=== PATIENT | female | born 1960 | race Caucasian/White ===

== ENCOUNTER 2017-08-29 08:22 | Outpatient (CLI) | payer BC | END 2017-08-29 08:23 | disposition home or self-care (01) | LOC: BICMAMMO 08:22 | PROVIDERS: ATTEND Family Medicine | DX: Z12.31 Encounter for screening mammogram for malignant neoplasm of breast (principal) | CPT/HCPCS: 77063; 77067 ==

== ENCOUNTER 2018-01-19 08:23 | Outpatient (CLI) | payer OTHER ==
[2018-01-19] MEDS ORDERED: Iopamidol 370 76% 100 ML VIAL ONE (09:40)
--- NOTE | 2018-01-19 10:42 | CT ---
CT ABDOMEN WITH CONTRAST CT PELVIS WITH CONTRAST: HISTORY: Rectal cancer. Rectal mass. Status post colonoscopy 2 days ago. Rectal pain. COMPARISON: None. TECHNIQUE: Abdomen and pelvic CT are performed with IV and oral contrast. Coronal reformatted images are submit heath for interpretation. FINDINGS: ABDOMEN CT: Lung bases are clear. Heart size is normal. No pericardial effusion. The descending thoracic aorta and abdominal aorta have an overall normal caliber. No periaortic fat stranding. There is prominence of the portal venous system. Correlate for portal hypertension. Minimal splenic varices. There is a suggestion of gastric varices. There are no enhancing masses or nodularity wit h regards to the hepatic parenchyma. The spleen, pancreas, and adrenal glands have appropriate enhan cement. There is mild tortuosity with atherosclerosis involving the splenic artery. Unremarkable gallbladder. Symmetric enhancement of the kidneys. Bilateral extrarenal pelvises are noted. No obstructive uropa thy. No gastrohepatic or retrocrural periportal lymphadenopathy. No mesenteric mass, lymphadenopathy, free air, or free fluid. Gastric mucosa, duodenum, and multiple normal-caliber small bowel loops are noted. Normal ileocecal junction. Normal-caliber appendix. There is fecal material throughout a nondistended, nondilated co jose eduardo. There is mucosal prominence involving the rectum with mild perirectal fat stranding. Findings compatible with known cancer. There is a nonspecific left perirectal lymph node measuring [address]: Uterus and adnexal structures are unremarkable. The urinary bladder is unremarkable. No lytic or blastic lesions in the osseous structures. IMPRESSION: 1. Rectal cancer. 2. Nonspecific left perirectal lymph node, worrisome for metastases. 3. Prominence of the portal venous system with gastroesophageal and splenic varices. Correlate for portal hypertension. POS: [facility]
== END 2018-01-19 08:24 | disposition home or self-care (01) ==
LOC: CT 08:23
PROVIDERS: ATTEND Internal Medicine Gastroenterology
DX: C20 Malignant neoplasm of rectum (principal); K62.9 Disease of anus and rectum, unspecified; K76.6 Portal hypertension
CPT/HCPCS: 74177

== ENCOUNTER 2018-02-07 07:30 | Outpatient (CLI) | payer BC ==
[2018-02-07] MEDS ORDERED: ISOVUE-370 76%-LOCM 1 ML ONE (12:25)
== END 2018-02-07 07:31 | disposition home or self-care (01) ==
LOC: BICCT 07:30
PROVIDERS: ATTEND Internal Medicine Hematology & Oncology
DX: C20 Malignant neoplasm of rectum (principal); J45.998 Other asthma
CPT/HCPCS: 71260

== ENCOUNTER → 2018-02-10 | Day surgery (SDC) | payer BC ==
[2018-02-08 12:49] VITALS: BMI 20.9
[~2018-02-10] MED LIST: Bupivacaine/Epinephrine 0.25% 30 ML VIAL ONE; CEFAZOLIN/Water 2 GM/20 ML SYRINGE ONE; Dexamethasone 20 MG/5 ML VIAL ONE; Fentanyl 100 MCG/2 ML VIAL ONE; Ketorolac Tromethamine 30 MG/ML VIAL ONE; Lidocaine 2% 10 ML INJ ONE; Midazolam HCl 2 mg/2 ml Vial ONE; Ondansetron HCl/PF 4 MG/2 ML Vial ONE; PHENYLEPHRINE-NS 100 MCG/ML 10 ML SYRINGE ONE; Propofol 1,000 MG/100 ML VIAL IV ONE
--- NOTE | 2018-02-10 10:17 | RAD ---
CHEST 1 VIEW: HISTORY: MediPort placement. COMPARISON: None. FINDINGS: There is MediPort placement with tip at the inferior SVC. The right lung apex is not completely visu alized. No large pneumothorax. Lungs are hyperinflated. IMPRESSION: Central venous catheter tip near the mid to inferior superior vena cava. No large pneumothorax. Of note, the right neck is not completely visualized. POS: [facility]
--- NOTE | 2018-02-10 20:02 | OP ---
DATE OF PROCEDURE: 02/10/2018 PREOPERATIVE DIAGNOSIS: Rectal cancer, locally invasive. POSTOPERATIVE DIAGNOSIS: Rectal cancer, locally invasive. PROCEDURE: Tunneled central line subcutaneous port (MediPort, CT injectable). SURGEON: Dr. Nicole. ANESTHESIA: General. ESTIMATED BLOOD LOSS: Minimal. COMPLICATIONS: None. SPECIMEN: None. FINDINGS: Tip of the catheter is at atriocaval junction. TECHNIQUE: The patient was taken to the operating room and placed supine on the table. After sedati on was obtained, bilateral neck and chest is prepped and draped in a sterile fashion. Local anesthet ic infiltrated over the right internal jugular vein. Intrajugular vein cannulated using a 22-gauge f danyelle needle followed by a Seldinger needle. Wire was passed into the superior vena cava under fluor oscopic guidance. A small chidi was made at the wire entrance site. A separate 3-cm incision made in the right upper chest. Subcutaneous pocket made below the lower incision. Tubing for the MediPort tunneled from the inferior to the superior incision and suture sheath was placed over the wire into t he superior vena cava under fluoroscopic guidance. The dilator wire removed. The end of catheter sh redded into the sheath as sheath is peeled away. The tip of the catheter is at the atriocaval juncti on. The MediPort tubing is cut to fit the MediPort at the lower incision, connected MediPort which i s sewn to the chest wall in the subcutaneous pocket using Prolene. The wounds were irrigated. Local anesthetic is applied. Wounds are closed using 3-0 Vicryl, 4-0 Monocryl, and Dermabond. The MediPo rt was flushed with a heparin flush. The patient is taken to the recovery room in stable condition. All instrument counts, needle counts and lap counts were correct.
== END ==
LOC: SDC 05:58
PROVIDERS: ATTEND Surgery
PROC: 05HM33Z Insertion of Infusion Device into Right Internal Jugular Vein, Percutaneous Approach (ICD-10-PCS; principal; 2018-02-10)
DX: C20 Malignant neoplasm of rectum (principal); F17.210 Nicotine dependence, cigarettes, uncomplicated; Z88.5 Allergy status to narcotic agent
CPT/HCPCS: 71045; C1788; J1100; J1642; J1885; J2250; J2405; J2704; J3010

== ENCOUNTER 2018-03-25 15:17 | Inpatient (IN) | payer BC ==
[~2018-03-25 15:17] MED LIST changes: -Bupivacaine/Epinephrine 0.25% 30 ML VIAL ONE; -CEFAZOLIN/Water 2 GM/20 ML SYRINGE ONE; -Dexamethasone 20 MG/5 ML VIAL ONE; -Fentanyl 100 MCG/2 ML VIAL ONE; +ISOVUE-370 76%-LOCM 1 ML ONE; -Ketorolac Tromethamine 30 MG/ML VIAL ONE; -Lidocaine 2% 10 ML INJ ONE; -Midazolam HCl 2 mg/2 ml Vial ONE; -Ondansetron HCl/PF 4 MG/2 ML Vial ONE; -PHENYLEPHRINE-NS 100 MCG/ML 10 ML SYRINGE ONE; -Propofol 1,000 MG/100 ML VIAL IV ONE
[2018-03-25 16:02] LABS: Hemoglobin 12.4 g/dL (12.0-16.0); Mean Corpuscular HGB CONC 35.7 g/dL (32.0-36.0); Mean Corpuscular Hemoglobin 34.4 pg (27.0-31.0); Mean Corpuscular Volume 96.2 fL (78.0-98.0); Mean Platelet Volume 6.8 fL (7.4-10.4); Platelet Count 188 thou/uL (130-400); RBC Distribution Width 14.5 % (11.5-14.5); White Blood Cell (WBC) Count 9.4 thou/uL (4.8-10.8)
[2018-03-25 16:20] LABS: ALT (SGPT) 25 U/L (8-55); AST (SGOT) 16 U/L (5-34); Albumin 2.5 g/dL (3.5-5.0); Alkaline Phosphatase 95 U/L (40-150); Anion Gap 10 mmol/L (10-20); BUN (Urea Nitrogen) 7 mg/dL (9.8-20.1); Bilirubin, Total 0.7 mg/dL (0.2-1.2); Calc. Creatinine Clearance 0 mL/min (70-130); Carbon Dioxide 30 mmol/L (22-29); Chloride 91 mmol/L (98-107); Estimated GFR-MDRD Greater than 90; Globulin 2.4 g/dL (2.4-3.5); Glucose 117 mg/dL (70-105); Protein, Total 4.9 g/dL (6.0-8.3); Sodium 129 mmol/L (136-145)
[2018-03-25 16:24] LABS: Potassium 2.4 mmol/L (3.5-5.1)
[2018-03-25 16:26] LABS: Band 67 % (5-11); Lymphocytes 5 % (21-51); MDiff Complete? YES; Metamyelocyte 1 % (0-0); Monocytes 4 % (0-10); Neutrophil 23 % (42-75); Toxic Granulation SLIGHT
[2018-03-25 16:32] LABS: PLT Morphology Comment Appears Adequate
[2018-03-25 16:50] LABS: Bilirubin Negative (Negative); Blood, Urine Negative (Negative); Clarity CLEAR (Clear); Glucose, Urine (Dipstick) Negative (Negative); Leukocyte Negative (Negative); Nitrite Negative (Negative); Protein, Urine (Dipstick) Negative (Neg-Trace); Specific Gravity, Urine 1.004 (1.002-1.036); Urobilinogen 0.2 mg/dL (0.2-1.0)
[2018-03-25 16:54] LABS: Magnesium 1.4 mg/dL (1.6-2.6)
[2018-03-25] MEDS ORDERED: Morphine 4 MG/ML VIAL ONE (16:56)
[2018-03-25] MEDS ORDERED: Potassium Chloride 20 MEQ TAB ONE (16:56)
[2018-03-25] MEDS ORDERED: Potassium Chloride 20 MEQ in Sodium Chloride 0.9% 250 ML 250 ML IVPB ONE (17:15)
--- NOTE | 2018-03-25 17:26 | CT ---
CT OF THE ABDOMEN AND PELVIS WITH IV CONTRAST 03/25/18 INDICATION: History of weakness and rectal cancer. FINDINGS: There is wall thickening involving the rectum, sigmoid colon, descending colon, splenic flexure, and portions of the transverse colon. The ascending colon appears within normal limits. There is prominen t dilatation of the bladder. There are a few mildly prominent fluid filled loops of small bowel withi n the central abdomen which is nonspecific. No free fluid is evident. The kidneys, adrenal glands, and spleen appear within normal limits. No foc al hepatic lesion is evident. There is scattered degenerative and osteoarthritic change. There is diffuse osteopenia. IMPRESSION: 1. Findings consistent with a proctocolitis involving the transverse colon through the level of the rectum. Findings are suspicious for an infectious or inflammatory colitis. The ascending colon ap pears within normal limits. There are nonspecific mildly dilated loops of small bowel seen throughout the abdomen which may reflect a regional ileus. 2. Prominent distention of the bladder. 3. Scattered vascular calcifications of the abdominal and pelvic vasculature. 4. Other chronic findings as above. POS: [facility]
[2018-03-25] MEDS ORDERED: Morphine IR Tab 15 MG TAB PO PRN (19:48)
[2018-03-25] MEDS ORDERED: Ondansetron ODT 8 MG TAB PO PRN (19:48)
[2018-03-25] MEDS ORDERED: Prochlorperazine Maleate 5 MG TAB PO PRN (19:48)
[2018-03-25] MEDS ORDERED: Acetaminophen 325 MG TAB PO PRN (20:40)
[2018-03-25] MEDS ORDERED: Mag-Al 1200 mg/1200 mg/30 ML UDCUP PO PRN (20:40)
[2018-03-25] MEDS ORDERED: Ondansetron HCl/PF 4 MG/2 ML Vial IVP PRN (20:40)
[2018-03-25 21:34] LABS: Anion Gap 12 mmol/L (10-20); BUN (Urea Nitrogen) 6 mg/dL (9.8-20.1); Calc. Creatinine Clearance 0 mL/min (70-130); Calcium 7.9 mg/dL (7.8-10.44); Carbon Dioxide 29 mmol/L (22-29); Chloride 95 mmol/L (98-107); Estimated GFR-MDRD Greater than 90; Glucose 107 mg/dL (70-105); Magnesium 1.5 mg/dL (1.6-2.6); Sodium 133 mmol/L (136-145)
[2018-03-25] MEDS: Famotidine/PF 20 mg/2ml Vial SLOW IVP SCH (21:36)
[2018-03-25] MEDS: Sodium Chloride 0.9% 1,000 ML IV SCH (21:48)
[2018-03-25] MEDS: Diphenoxylate HCl/Atropine Tablet PO PRN (22:26)
[2018-03-25] MEDS: traMADol HCl 50 MG TAB PO PRN (22:27)
[2018-03-25] MEDS: metroNIDAZOLE 500 MG in Premix Bag 1 BAG IVPB SCH (23:51)
[2018-03-26] MEDS: Loperamide HCl 2 MG CAP PO PRN ×2 (01:08→08:50)
[2018-03-26 04:54] LABS: Anion Gap 11 mmol/L (10-20); BUN (Urea Nitrogen) 6 mg/dL (9.8-20.1); Calc. Creatinine Clearance 97 mL/min (70-130); Calcium 7.7 mg/dL (7.8-10.44); Carbon Dioxide 26 mmol/L (22-29); Chloride 97 mmol/L (98-107); Estimated GFR-MDRD Greater than 90; Glucose 98 mg/dL (70-105); Magnesium 1.4 mg/dL (1.6-2.6); Sodium 131 mmol/L (136-145)
[2018-03-26 04:57] LABS: Potassium 2.7 mmol/L (3.5-5.1)
[2018-03-26] MEDS: metroNIDAZOLE 500 MG in Premix Bag 1 BAG IVPB SCH ×3 (05:54→22:46)
[2018-03-26] MEDS: Potassium Chloride 20 MEQ TAB PO SCH ×3 (06:05→10:18)
[2018-03-26 06:09] LABS: Band 47 % (5-11); Eosinophils 1 % (0-10); Lymphocytes 6 % (21-51); MDiff Complete? YES; Mean Corpuscular HGB CONC 35.3 g/dL (32.0-36.0); Mean Corpuscular Volume 96.3 fL (78.0-98.0); Mean Platelet Volume 6.6 fL (7.4-10.4); Metamyelocyte 4 % (0-0); Monocytes 7 % (0-10); Neutrophil 34 % (42-75); Nucleated RBC 1 % (0); PLT Morphology Comment Appears Adequate; Platelet Count 200 thou/uL (130-400); RBC Distribution Width 14.7 % (11.5-14.5); Red Blood Cell (RBC) Count 3.51 mill/uL (4.20-5.40); Toxic Granulation SLIGHT; White Blood Cell (WBC) Count 7.4 thou/uL (4.8-10.8)
[2018-03-26] MEDS: Famotidine/PF 20 mg/2ml Vial SLOW IVP SCH ×2 (08:46→20:59)
[2018-03-26] MEDS: Enoxaparin Sodium 30 MG/0.3 ML SYRINGE SC SCH (08:49)
[2018-03-26] MEDS ORDERED: Prevnar 13-Val Conj/PF 0.5 ML SYRINGE IM ONE (09:00)
--- NOTE | 2018-03-26 09:26 | PDOC.EVN ---
Event Note - Event Note Event Note: h&p [id number]
[2018-03-26] MEDS: traMADol HCl 50 MG TAB PO PRN ×3 (10:18→22:45)
[2018-03-26] MEDS: Diphenoxylate HCl/Atropine Tablet PO PRN (10:19)
--- NOTE | 2018-03-26 10:46 | ULT ---
DOPPLER VENOUS ULTRASOUND LEFT LOWER EXTREMITY: Indication: Left lower extremity edema. TECHNIQUE: Burch scale, color Doppler, and vascular duplex with spectral analysis was performed of the deep venou s structures of both lower extremities. The common femoral vein, superficial femoral vein, popliteal vein, posterior tibial vein, proximal greater saphenous, and proximal profunda veins were assessed bi laterally. FINDINGS: There is normal compression, flow, and augmentation seen within the deep venous structures of the lef t lower extremity. IMPRESSION: No evidence of DVT in the left lower extremity. POS: [facility]
[2018-03-26] MEDS ORDERED: Magnesium Sulfate 2 GM in Sodium Chloride 0.9% 100 ML IVPB SCH (11:00)
[2018-03-26] MEDS: NS 0.9% w/ 40 MEQ KCL 1,000 ML IV SCH (11:30)
[2018-03-26] MEDS: Sodium Chloride 0.9% 1,000 ML IV SCH (11:36)
[2018-03-26 13:04] LABS: Anion Gap 10 mmol/L (10-20); BUN (Urea Nitrogen) 5 mg/dL (9.8-20.1); Calc. Creatinine Clearance 109 mL/min (70-130); Calcium 7.4 mg/dL (7.8-10.44); Carbon Dioxide 26 mmol/L (22-29); Chloride 99 mmol/L (98-107); Estimated GFR-MDRD Greater than 90; Glucose 91 mg/dL (70-105); Magnesium 2.2 mg/dL (1.6-2.6); Potassium 3.5 mmol/L (3.5-5.1); Sodium 131 mmol/L (136-145)
--- NOTE | 2018-03-26 14:02 | HP ---
CHIEF COMPLAINT: Abdominal pain and weakness. HISTORY OF PRESENT ILLNESS: This is a 57-year-old female with a known history of colorectal cancer a s her primary cancer, specifically invasive colonic carcinoma is moderately differentiated with perir ectal lymph nodes. She states that her last dose of both chemo and radiation was approximately 10 da ys ago. Over the last two weeks, the patient endorses very poor p.o. intake along with consistent an d persistent diarrhea that has been very painful in her rectum. She presents today with progressive weakness and worsening suprapubic pain and discomfort that is cramping, persistent. The patient magdalena es any prior similar episodes. At the time of my evaluation, the patient states that pain medications in the emergency department rios ve been somewhat helpful and that she feels slightly better after receiving some IV fluids. REVIEW OF SYSTEMS: As per HPI. Constitutional: The patient endorses subjective fevers, T-max of 10 3 when taken at home about 2 days ago. Also, denies any chills. Endorses weight loss over the last 6 months. HEENT: No headaches, no vision changes, no lightheadedness, no dizziness. Cardiovascular : No chest pain, no palpitations, no chest pressure or left side arm numbness or tingling. Respirat ory: No shortness of breath, no cough, no congestion. Gastrointestinal: As per above. Denies any vomiting. Endorses having nausea, decreased appetite. Genitourinary: Denies any dysuria, changes i n urinary frequency, quality or quantity. Of note, the patient states that she was diagnosed with a probable urinary tract infection, started on Levaquin approximately 2 days ago. Musculoskeletal: De nies any new myalgias or arthralgias. Remainder of the review of systems otherwise negative. PAST MEDICAL HISTORY: 1. Colorectal cancer with perirectal lymph nodes as noted above, currently status post MediPort plac ement and on both chemotherapy and radiation. 2. Status post tubal ligation. FAMILY HISTORY: The patient denies family history of colorectal cancer or GI cancer. SOCIAL HISTORY: The patient is a half-a-pack a day tobacco user. No alcohol, no illicit drug use. Discussed with the patient her code status wishes and she wishes to be full code with her as her medical power of ip technology transactions attorney if she is unable to make her own medical decisions. PHYSICAL EXAMINATION: VITAL SIGNS: Temperature 98.2, pulse of 104, blood pressure 127/59, respirations 18, satting 94% on room air. GENERAL: The patient is pale, cachectic appearing, lying in the hospital bed, in no overt acute dist ress, appears to be a reasonable historian. HEENT: Normocephalic, atraumatic. Dry mucous membranes, equal ocular motions are intact, pale as no heath above with pale conjunctivae. CARDIOVASCULAR: S1, S2. EXTREMITIES: Pulses 2+ bilateral upper extremities, trace lower extremity pitting pedal edema with 1 + in the left lower extremity, but none in the right lower extremity. ABDOMEN: Positive bowel sounds, nondistended, soft, but tender to palpation particularly bilateral l ower quadrants and suprapubic. LABORATORY DATA AND IMAGING: On 03/25/2018, abdomen and pelvis CT. Impression "findings consistent with proctocolitis involving the transverse colon through the level of the rectum. Findings are susp icious for an infectious or inflammatory colitis. The ascending colon appears within normal limits. There are nonspecific mildly dilated loops of small bowel seen through the abdomen, which may reflec t a regional ileus. Prominent distention of the bladder. Scattered vascular calcifications of the a bdominal and pelvic vasculature. Other chronic findings as above|." WBC 9.4, hemoglobin 12.4, hematocrit 34.7, platelets 188, neutrophils 23%, bands 67%. Sodium 129, po tassium 2.4, chloride 91, bicarbonate 30, BUN 7, creatinine 0.61, glucose 117, lactic acid 1.2, calci um 8.0, magnesium 1.4, total bilirubin 0.7, AST 16, ALT 25, alkaline phosphatase 95, total protein 4. 9, albumin 2.5. UA is essentially bland. ASSESSMENT AND PLAN: A 57-year-old female presenting with weakness and abdominal pain in the setting of known colorectal cancer status post both chemotherapy and radiation. Patient also currently pres enting with diarrhea. Initial discussion with the ER physician, there is likely a possibility of col itis secondary to her oncologic treatment; however, given the patient's complaints of fever and her a ctive diarrhea, would be prudent to presume that is infectious until ruled out. We will start empiri c Flagyl, ciprofloxacin. Check for C. diff, Campylobacter, E. coli. I discussed the above with the patient and she is in agreement with this plan. Patient states that she does have chronic diarrhea a s well, particularly over the last month and has been trying [id number] Lomotil without much martinez ccess. Overt infectious etiology is ruled out, question of alternative antimotility agents may be or antidiarrheal agents may be helpful. I appreciate GI consultation as well. 1. History of colorectal cancer with perirectal lymph nodes. I appreciate Oncology consultation. 2. Hypokalemia and hyponatremia likely secondary to volume depletion from poor oral intake as well a s active diarrhea. Electrolyte repletion as needed. Check BMP q.8 hours. Repeat EKG in the morning as well. Also, check a magnesium level and replete to that as needed given the diarrhea. 3. Left lower extremity, trace pedal edema. None are seen in the right. Concern for the possibilit y of a deep venous thrombosis, we will check ultrasound Doppler venous. 4. Malnourished, cachectic appearing. I appreciate dietary consultation for recommendations regardi ng supplementation. The patient is endorsing a very poor oral intake. Discussed with the patient martinez pportive measures including antiemetics for nausea if she were to have it and encouraged oral intake. 5. Pain control, likely secondary to multiple issues above. We will resume on the patient's home or al morphine with IV breakthrough morphine if needed and also oral tramadol. 6. Diet: As tolerated. 7. Activity: As tolerated. 8. Deep venous thrombosis prophylaxis with enoxaparin.
--- NOTE | 2018-03-26 14:18 | CON ---
DATE OF CONSULTATION: 03/26/2018 DATE OF ADMISSION: 03/25/2018 HISTORY OF PRESENT ILLNESS: Ms. Browning is a 57-year-old female with a history of rectal adenocarcino ma, who just completed treatment with infusional 5-FU and radiation. She was taken off the IV chemot herapy approximately 10 days ago and her radiation was stopped approximately 5 days ago. This was sh ort of the completion of treatment, because of all of the side effects she was having. Over the last couple of weeks, she has had increasing low-grade temperatures as well as increasing rectal pain. S he states she has hemorrhoids that have thrombosed and they have been quite painful. She has been rios ving increasing diarrhea, which appears to be very watery. She denies bleeding or mucus in the stool . She got weaker and weaker at home and her brought her to the emergency room. She states h er pain is marginally better today with morphine and tramadol. She continues to have diarrhea. She has given a stool sample, and so far, has tested negative for Clostridium difficile as well as other infections. She complains of increasing abdominal pain and bloating. She has had some nausea, but n o significant vomiting. She thinks she has lost 10 pounds throughout the treatment. PAST MEDICAL HISTORY: 1. Recent diagnosis of rectal adenocarcinoma, having just completed treatment approximately 5 days a go. 2. Hemorrhoids. CURRENT MEDICATIONS: 1. Tylenol p.r.n. 2. Maalox 30 mL p.o. q.6 hours p.r.n. 3. Ciprofloxacin 400 mg p.o. q.12 hours 4. Lomotil 2 tabs p.o. q.6 hours p.r.n. 5. Lovenox 30 mg subcutaneous daily. 6. Pepcid 20 mg IV q.12 hours. 7. Imodium 2 mg p.o. q.2 hours p.r.n. 8. Magnesium sulfate 2 grams IV x1 now. 9. Flagyl 500 mg IV q.8 hours. 10. Morphine 2 mg IV q.2 hours p.r.n. 11. Zofran 8 mg p.o. q.8 hours p.r.n. 12. Zofran 4 mg IV q.6 hours p.r.n. 13. Potassium chloride replacement. 14. Compazine 10 mg p.o. q.6 hours. 15. Ultram 50 mg p.o. q.6 hours p.r.n. ALLERGIES: CODEINE. SOCIAL HISTORY: She is here with her , who appears quite supportive. She denies tobacco or a lcohol use. FAMILY HISTORY: Negative for GI malignancy. REVIEW OF SYSTEMS: Besides the history of present illness, a 10-point review of systems is negative. PHYSICAL EXAMINATION: VITAL SIGNS: Temperature 98.8, pulse 97, O2 sat 93% on room air, respirations 16, blood pressure 104 /59. GENERAL: She is alert, awake, and oriented x3, is quite pleasant, but is obviously uncomfortable lyi ng on her side. HEENT: Extraocular muscles are intact. Pupils are equal, round, and reactive to light. She has no oral cavity lesions. NECK: Supple, without lymphadenopathy or thyromegaly. CARDIOVASCULAR: Regular rhythm. LUNGS: Clear to auscultation bilaterally. ABDOMEN: Hypoactive bowel sounds, slightly distended, but with no rebounding or guarding. EXTREMITIES: No edema. No petechia. LABORATORY DATA: White blood cell count 7.4, hemoglobin 12.0, platelets 200. Sodium 131, potassium 2 .7, chloride 97, CO2 of 26, BUN 6, creatinine 0.6, glucose 98, calcium 7.7, mag 1.4. CT of the abdomen and pelvis, done on admission, shows proctocolitis involving the transverse colon t hrough the level of the rectum. The ascending colon is within normal limits. There is prominent dis tention of the bladder. There are nonspecific mildly dilated loops of small bowel. ASSESSMENT: Ms. Browning is a 57-year-old female with: 1. Rectal adenocarcinoma, status post treatment with infusional 5-FU and radiation. 2. Radiation proctitis. 3. Ileus versus colitis from the infusional 5-FU and radiation. 4. Rectal pain secondary to the above. 5. Nausea secondary to above. 6. Hypokalemia secondary to the above. 7. Possible urinary tract infection. PLAN: 1. Continue IV antibiotics for the possible infection. 2. She has already been placed on Flagyl, although I suspect this is not infectious. However, I wou ld continue this for now. 3. Clostridium difficile has been checked and ruled out. I would recommend that we check one more s tool sample. 4. Continue IV morphine and tramadol. 5. Continue IV fluids. 6. I think she could probably be transferred off telemetry and onto Oncology once the primary team i s amenable to this. We will follow with you.
--- NOTE | 2018-03-26 14:31 | CON ---
DATE OF CONSULTATION: 03/26/2018 HISTORY OF PRESENT ILLNESS: The patient is a 57-year-old female undergoing radiochemothera py for rectal cancer. She is in week 4 of her treatment and has been progressively declining with in creasing diarrhea and increasing abdominal pain. She reports increasing pain. She has been on morph ine for her abdominal pain. She has had no vomiting. She has had decreased appetite. She was recen tly started on antibiotic; however, this was done after this occurred. PAST MEDICAL HISTORY: Includes rectal cancer. PAST SURGICAL HISTORY: Includes a tubal ligation. SOCIAL HISTORY: She does smoke, does not drink alcohol. FAMILY HISTORY: Negative for GI or liver disease. ALLERGIES: CODEINE. MEDICATIONS: On admission include Lomotil, loperamide, Zofran, levofloxacin and morphine. REVIEW OF SYSTEMS: Constitutional: Positive for fever. Positive for weight loss. Eyes: No blurre d vision or double vision. ENT: No sore throat or earaches. Cardiovascular: No chest pain or palp itations. Pulmonary: No shortness of breath, cough or wheezing. Gastrointestinal: See above. Gen itourinary: No hematuria or dysuria. Musculoskeletal: No joint pain or muscle weakness. Skin: No rashes. Neurologic: No numbness or seizure activity. PHYSICAL EXAMINATION: GENERAL: Shows a thin white female, in no acute distress. VITAL SIGNS: Temperature 98.8, pulse 97, respiratory rate 16, blood pressure 104/59. HEENT: Unremarkable. NECK: Supple. CHEST: Clear. CARDIOVASCULAR: Regular rate and rhythm. ABDOMEN: Somewhat protuberant, tympanitic diffusely, tender diffusely. Bowel sounds are hypoactive. RECTAL: Deferred. EXTREMITIES: Normal. LABORATORY DATA: Shows admission sodium 129, potassium 2.4, chloride 91, CO2 30, BUN 7, glucose 117, albumin 2.5. Urinalysis is negative. Abdominal and pelvic CT showed proctocolitis. Mildly dilated loops of small bowel are noted. Prominent urinary distention. ASSESSMENT: 1. Proctocolitis -- may be a combination of radiochemotherapy, possibly ischemia. Stool was negativ e for Clostridium difficile. 2. History of rectal cancer, undergoing radiochemotherapy. 3. Ileus -- this may be a combination of morphine, loperamide and Lomotil. RECOMMENDATIONS: 1. Decrease the analgesics if possible. 2. Discontinue loperamide and Imodium. 3. N.p.o. 4. Flexible sigmoidoscopy in a.m.
--- NOTE | 2018-03-26 14:37 | PDOC.PN ---
- Subjective Encounter Start Date: 03/26/18 Encounter Start Time: 14:35 Subjective: nsg notes rev, yasmine ovn, pt with difficulty obtaining adequate pain ctrl -: and feels she finally got comfortable a few hours ago -: family members at bedside - Objective Resuscitation Status: Resuscitation Status FULL:Full Resuscitation Vital Signs & Weight: Vital Signs (12 hours) Temp Pulse Resp BP Pulse Ox 03/26/18 12:25 98.8 F 97 16 104/59 L 93 L 03/26/18 08:00 98.7 F 100 16 03/26/18 07:21 98.7 F 100 16 101/60 94 L Weight Weight 129 lb 6.4 oz I&O: 03/25/18 03/26/18 03/27/18 06:59 06:59 06:59 Intake Total 240 Output Total 400 Balance 240 -400 Result Diagrams: 03/26/18 04:01 03/26/18 12:24 Dx/Plan - Plan Diarrhea and colitis f/u complete r/o of infectious etiologies apprec GI c/s empiric cipro, metronidazole could be 2/2 colorectal ca txtmts of radiation and chemo pain control 1. History of colorectal cancer with perirectal lymph nodes. I appreciate Oncology consultation. 2. Hypokalemia and hyponatremia likely secondary to volume depletion from poor oral intake as well as active diarrhea. Electrolyte repletion as needed. Check BMP q.8 hours. Repeat EKG in the morning as well. Also, check a magnesium level and replete to that as needed given the diarrhea. 3. Left lower extremity, trace pedal edema. None are seen in the right. US LLE neg DVT monitor I/O, pt high risk for third spacing 4. Malnourished, cachectic appearing. I appreciate dietary consultation for recommendations regarding supplementation. The patient is endorsing a very poor oral intake. Discussed with the patient supportive measures including antiemetics for nausea if she were to have it and encouraged oral intake. Low protein, albumin 5. Pain control, likely secondary to multiple issues above. We will resume on the patient's home oral morphine with IV breakthrough morphine if needed and also oral tramadol. 6. Diet: As tolerated. 7. Activity: As tolerated. 8. Deep venous thrombosis prophylaxis with enoxaparin. ok for transfer to [facility] d/w pt and her family at bedside d/w dr tobias d/w bedside nursing Review of Systems - Medications/Allergies Allergies/Adverse Reactions: Allergies Allergy/AdvReac Type Severity Reaction Status Date / Time codeine Allergy Mild itching Verified 03/25/18 19:42 Medications: Current Medications Acetaminophen (Tylenol) 650 mg PO Q4H PRN PRN Reason: Headache/Fever or Pain Last Admin: 03/25/18 22:26 Dose: 650 mg Al Hydroxide/Mg Hydroxide (Maalox) 30 ml PO Q6H PRN PRN Reason: Heartburn or Indigestion Last Admin: 03/25/18 21:58 Dose: 30 ml Enoxaparin Sodium (Lovenox) 30 mg SC 0900 [facility] Last Admin: 03/26/18 08:49 Dose: Not Given Famotidine (Pepcid) 20 mg SLOW IVP Q12HR [facility] Last Admin: 03/26/18 08:46 Dose: 20 mg Ciprofloxacin/Dextrose 400 mg/ (Device) 200 mls @ 200 mls/hr IVPB Q12HR [facility] Last Admin: 03/26/18 08:45 Dose: 200 mls Metronidazole 500 mg/ Device 100 mls @ 100 mls/hr IVPB Q8HR LOCO Last Admin: 03/26/18 14:13 Dose: 100 mls Potassium Chloride/Sodium Chloride (Ns 0.9% W/ 40 Meq Kcl) 1,000 mls @ 100 mls/ hr IV .Q10H [facility] Last Admin: 03/26/18 11:30 Dose: 1,000 mls Morphine Sulfate (Morphine) 2 mg SLOW IVP Q2H PRN PRN Reason: SEVERE PAIN 7-10 Last Admin: 03/26/18 13:04 Dose: 2 mg Ondansetron HCl (Zofran Odt) 8 mg PO Q8HR PRN PRN Reason: Nausea/Vomiting Ondansetron HCl (Zofran) 4 mg IVP Q6H PRN PRN Reason: Nausea/Vomiting Last Admin: 03/26/18 11:06 Dose: 4 mg Prochlorperazine Maleate (Compazine) 10 mg PO Q6H PRN PRN Reason: Nausea/Vomiting Tramadol HCl (Ultram) 50 mg PO Q6H PRN PRN Reason: Pain 4-6 Last Admin: 03/26/18 10:18 Dose: 50 mg
[2018-03-26 21:21] LABS: Anion Gap 10 mmol/L (10-20); BUN (Urea Nitrogen) 6 mg/dL (9.8-20.1); Calc. Creatinine Clearance 99 mL/min (70-130); Calcium 7.4 mg/dL (7.8-10.44); Carbon Dioxide 25 mmol/L (22-29); Chloride 103 mmol/L (98-107); Estimated GFR-MDRD Greater than 90; Glucose 88 mg/dL (70-105); Magnesium 1.7 mg/dL (1.6-2.6); Potassium 3.7 mmol/L (3.5-5.1); Sodium 134 mmol/L (136-145)
[2018-03-27] MEDS: NS 0.9% w/ 40 MEQ KCL 1,000 ML IV SCH ×2 (01:15→08:05)
[2018-03-27] MEDS: metroNIDAZOLE 500 MG in Premix Bag 1 BAG IVPB SCH ×3 (05:43→21:32)
[2018-03-27 06:06] LABS: Anion Gap 11 mmol/L (10-20); BUN (Urea Nitrogen) 5 mg/dL (9.8-20.1); Calc. Creatinine Clearance 102 mL/min (70-130); Calcium 7.3 mg/dL (7.8-10.44); Carbon Dioxide 24 mmol/L (22-29); Chloride 104 mmol/L (98-107); Estimated GFR-MDRD Greater than 90; Glucose 82 mg/dL (70-105); Magnesium 1.7 mg/dL (1.6-2.6); Potassium 3.9 mmol/L (3.5-5.1); Sodium 135 mmol/L (136-145)
[2018-03-27] MEDS: traMADol HCl 50 MG TAB PO PRN ×3 (06:07→18:13)
[2018-03-27 07:24] LABS: Band 35 % (5-11); Eosinophils 1 % (0-10); Hemoglobin 10.6 g/dL (12.0-16.0); Lymphocytes 13 % (21-51); MDiff Complete? YES; Mean Corpuscular HGB CONC 34.8 g/dL (32.0-36.0); Mean Corpuscular Hemoglobin 34.2 pg (27.0-31.0); Mean Corpuscular Volume 98.3 fL (78.0-98.0); Mean Platelet Volume 6.8 fL (7.4-10.4); Monocytes 3 % (0-10); Neutrophil 48 % (42-75); Platelet Count 199 thou/uL (130-400); RBC Distribution Width 14.9 % (11.5-14.5); White Blood Cell (WBC) Count 6.1 thou/uL (4.8-10.8)
[2018-03-27] MEDS ORDERED: Fentanyl 100 MCG/2 ML VIAL ONE (10:00)
[2018-03-27] MEDS ORDERED: D5W-AA 4.25% with LYTES 1,000 ML BAG IV SCH (10:00)
--- NOTE | 2018-03-27 10:04 | OP ---
DATE OF PROCEDURE: 03/27/2018 PROCEDURE: After informed consent was obtained, the patient was placed in left lateral decubitus pos ition. Anesthesia was administered per the Anesthesia Department. Forward-viewing endoscope was ins erted into the rectum. After perianal inspection, rectal exam revealed a large external hemorrhoid. This hemorrhoid appeared to be nonthrombosed. The scope was passed to the splenic flexure. There a re diffuse colitis was seen proximally and involved the entire colon visualized. It consisted of anna thema of the mucosa with loss of vascularity. There were ulcerations diffusely throughout the colon, approximately 5-7 mm in size. Biopsies were taken from the descending colon. In the rectum, there was large 3 x 3 cm ulceration. No residual cancer was seen. Retroflexion was not performed. ASSESSMENT: 1. Diffuse colitis to the splenic flexure -- status post biopsy of the descending colon. 2. Large rectal ulceration -- probably related to the radiation. 3. Large nonthrombosed external hemorrhoid. RECOMMENDATIONS: 1. Await histopathology including rule out viral infection. 2. Antibiotics. 3. Hold any further radiation and chemotherapy for now. 4. Procalamine for nutritional supplementation.
[2018-03-27] MEDS ORDERED: PROPOFOL 200 MG/20 ML VIAL ONE (10:14)
[2018-03-27] MEDS: Famotidine/PF 20 mg/2ml Vial SLOW IVP SCH ×2 (10:37→20:25)
[2018-03-27] MEDS: Enoxaparin Sodium 30 MG/0.3 ML SYRINGE SC SCH (10:39)
[2018-03-27] MEDS: D5W-AA 4.25% with LYTES 1,000 ML IV SCH ×2 (12:08→20:27)
[2018-03-27 12:40] LABS: Anion Gap 7 mmol/L (10-20); BUN (Urea Nitrogen) 5 mg/dL (9.8-20.1); Calc. Creatinine Clearance 100 mL/min (70-130); Calcium 7.4 mg/dL (7.8-10.44); Carbon Dioxide 25 mmol/L (22-29); Chloride 105 mmol/L (98-107); Estimated GFR-MDRD Greater than 90; Glucose 93 mg/dL (70-105); Magnesium 1.6 mg/dL (1.6-2.6); Potassium 3.7 mmol/L (3.5-5.1); Sodium 133 mmol/L (136-145)
--- NOTE | 2018-03-27 15:37 | PDOC.PN ---
- Subjective Encounter Start Date: 03/27/18 Encounter Start Time: 14:30 -: old records requested/rev PT seen and examined, chart reviewed in its entirety, this is my first visit with this patient S/P colonoscopy earleir today findings reviewed. biopsies pending. pain controlled, 11/01 currently, but tolerable. No F/C, no N/v/D/C, carmen po. All systems reviewed and neg x as above - Objective Resuscitation Status: Resuscitation Status FULL:Full Resuscitation MAR Reviewed: Yes Vital Signs & Weight: Vital Signs (12 hours) Temp Pulse Resp BP Pulse Ox 03/27/18 10:30 97.8 F 92 17 119/72 95 03/27/18 08:28 97.2 F L 97 16 107/66 94 L 03/27/18 07:40 98.0 F 93 15 03/27/18 04:00 98.0 F 93 15 112/56 L 93 L Weight Admit Weight 129 lb 6.4 oz Weight 123 lb I&O: 03/26/18 03/27/18 03/28/18 06:59 06:59 06:59 Intake Total 240 2247 Output Total 500 Balance 240 1747 Result Diagrams: 03/27/18 04:30 03/27/18 12:10 Radiology Reviewed by me: Yes EKG Reviewed by me: Yes Phys Exam - Physical Examination Constitutional: NAD HEENT: PERRLA, moist MMs, sclera anicteric, oral pharynx no lesions Neck: no nodes, no JVD, supple, full ROM Respiratory: no wheezing, no rales, no rhonchi, clear to auscultation bilateral Cardiovascular: RRR, no significant murmur, no rub Gastrointestinal: soft, non-tender, no distention, positive bowel sounds Musculoskeletal: no edema, pulses present Neurological: non-focal, normal sensation, moves all 4 limbs Lymphatic: no nodes Psychiatric: normal affect, A&O x 3 Skin: no rash, normal turgor, cap refill <2 seconds Dx/Plan (1) Radiation proctitis Code(s): K62.7 - RADIATION PROCTITIS Status: Acute (2) External hemorrhoid Code(s): K64.4 - RESIDUAL HEMORRHOIDAL SKIN TAGS Status: Acute (3) Hypokalemia Code(s): E87.6 - HYPOKALEMIA Status: Acute (4) Hyponatremia Code(s): E87.1 - HYPO-OSMOLALITY AND HYPONATREMIA Status: Acute - Plan cont current plan of care, plan discussed w/ family, PT/OT, out of bed/ambulate * . CCM, follow up on GI recs in AM, home soon. preparation H for hemorrhoids
[2018-03-28] MEDS: traMADol HCl 50 MG TAB PO PRN ×4 (00:13→18:24)
[2018-03-28] MEDS: metroNIDAZOLE 500 MG in Premix Bag 1 BAG IVPB SCH ×3 (05:33→23:05)
[2018-03-28 05:42] LABS: Band 40 % (5-11); Eosinophils 2 % (0-10); Hemoglobin 11.2 g/dL (12.0-16.0); Lymphocytes 2 % (21-51); MDiff Complete? YES; Mean Corpuscular HGB CONC 32.9 g/dL (32.0-36.0); Mean Corpuscular Hemoglobin 32.7 pg (27.0-31.0); Mean Corpuscular Volume 99.2 fL (78.0-98.0); Mean Platelet Volume 6.5 fL (7.4-10.4); Monocytes 17 % (0-10); Neutrophil 39 % (42-75); Platelet Count 227 thou/uL (130-400); RBC Distribution Width 15.2 % (11.5-14.5); Red Blood Cell (RBC) Count 3.42 mill/uL (4.20-5.40); White Blood Cell (WBC) Count 5.4 thou/uL (4.8-10.8)
[2018-03-28] MEDS: Famotidine/PF 20 mg/2ml Vial SLOW IVP SCH ×2 (08:55→22:17)
[2018-03-28] MEDS: Enoxaparin Sodium 30 MG/0.3 ML SYRINGE SC SCH (08:55)
[2018-03-28] MEDS: D5W-AA 4.25% with LYTES 1,000 ML IV SCH ×2 (09:12→22:16)
[2018-03-28] MEDS ORDERED: Morphine 4 MG/ML VIAL SLOW IVP PRN (12:02)
[2018-03-28 12:04] LABS: Reference Lab Name LABCORP
[2018-03-28 12:05] LABS: Ref Lab Test Ordered DPD 5FU TOXICITY
--- NOTE | 2018-03-28 13:30 | PQF ---
Date: 03-28-18 ATTN: DR. CIARA LIMON Please exercise your independent, professional judgment in responding to the clarification form. Clinical indicators are provided on the bottom of this form for your review Please check appropriate box(s): [ ] Protein Calorie Malnutrition: [ ] Mild [ ] Moderate [ ] Severe [ ] Other Malnutrition (please specify) __ [ ] Other diagnosis [ ] Unable to determine In addition, please specify: Present on Admission (POA): [ ] Yes [ ] No [ ] Unable to determine CLINICAL INDICATORS - SIGNS / SYMPTOMS / LABS BMI of 19.3 H&P: PATIENT IS PALE, CACHECTIC APPEARING H&P: MALNOURISHED, CACHECTIC APPEARING, PT IS ENDORSING A VERY POOR ORAL INTAKE CONSULT NOTE DR. 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 RISK FACTORS: FLOW FLOOR ATTENDANT CONSULT 03-27-18: colorectal cancer with perirectal lymph nodes s/p chemotherapy and radiation, tobacco abuse. 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 patient triggered for low PO intake TUBER MACHINE OPERATOR HELPER, recent NPO status for flex-sig today, documentation of poor intake TUBER MACHINE OPERATOR HELPER TREATMENT: FLOW FLOOR ATTENDANT CONSULT 03-27-18: 1. Continue Full Liquid diet, ADAT to a Fiber Restricted diet 2. Recommend Ensure Enlive TID 3. Provide bowel regimen PRN Moderate Malnutrition (in acute illness) Energy Intake: <75% of estimated energy requirement for > 7 days Weight Loss: 1-2%/1 week; 5%/ 1 month; 7.5%/3 months Other: mild body fat loss; mild muscle mass loss; mild fluid accumulation; Severe Malnutrition (in acute illness) Energy Intake: < 50% of estimated energy requirement for > 5 days Weight Loss: >1-2%/1 week; >5%/1 month; >7.5%/3 months Other: moderate body fat loss; moderate muscle mass loss; moderate- severe fluid accumulation; measurably reduced double cut off saw operator strength Moderate Malnutrition (in chronic illness) Energy Intake: <75% of estimated energy requirement for >1 month Weight Loss: 5%/1 month; 7.5%/3 months; 10%/6 months; 20%/1 year Other: mild body fat loss; mild muscle mass loss; mild fluid accumulation Severe Malnutrition (in chronic illness) Energy Intake: <75% of estimated energy requirement for >1 month Weight Loss: >5%/1 month; >7.5%/3 months; >10%/6 months; >20%/1 year Other: severe body fat loss; severe muscle mass loss; severe fluid accumulation ; measurably reduced double cut off saw operator strength (This form is maintained as a part of the permanent medical record) 2014 [employer] All Rights Reserved [email or web address] Office: [phone] [email or web address]
--- NOTE | 2018-03-28 21:40 | PRG ---
DATE OF SERVICE: 03/28/2018 SUBJECTIVE: Ms. Browning is having significant rectal and lower abdominal pain, requiring progressive doses of morphine. She has had severe pain since her initial presentation with a cancer. She says t hat the pain has actually worsened; however, since starting chemotherapy and radiation rather than im proving. Lately, she has had diarrhea with 10 liquidy stools per day. Her stool studies were negati ve for C. diff and culture. Dr. Burch performed colonoscopy yesterday, which showed inflammation thro ughout the area that he examined up towards the splenic flexure. There is large ulcer in the rectum at the site of the tumor on radiation. Biopsies were obtained and are pending. PHYSICAL EXAMINATION: VITAL SIGNS: Temperature 98.2, pulse 66, and blood pressure 115/76. GENERAL: She is in no acute distress. She is alert and oriented x3. LUNGS: Clear to auscultation bilaterally. HEART: Regular rate and rhythm. ABDOMEN: Soft, without guarding. She does have tenderness somewhat diffusely; however, this seems t o be mild at the moment. She has bowel sounds. EXTREMITIES: Have no lower extremity edema. LABORATORY DATA: White blood cell count 5.4, hemoglobin 11.2, platelets 227, creatinine 0.56. IMPRESSION: 1. Diffuse colitis and rectal ulceration. This is likely related to her recent chemotherapy and rad iation. Hopefully, she gets further out from her last dose of chemo. She will start developing more clinical improvement. We will await the biopsies from her colon. We need to rule out viral colitis and CMV and HSV stains will need to be reviewed. 2. Rectal cancer. She has received chemo and radiation as part of a preoperative adjuvant therapy. She will ideally undergo surgery as a next step; however, it is looking now like she will unlikely t olerate completion of her radiation treatments and chemotherapy preoperatively. Certainly, the acute colitis will have to heal prior to any sort of surgical intervention. 3. Rectal pain which has been persistent since presentation; however, now requiring escalating doses of morphine. 4. Protein calorie malnutrition RECOMMENDATIONS: 1. Await histopathology. 2. Symptomatic treatment for pain and diarrhea. 3. Await biopsy results including viral stains. 4. She has been started on TPN. She will need to continue full liquids as she tolerates them. She was encouraged to take Ensures as scheduled also to help prevent bowel atrophy. With adjustment of I V nutrition can be given as recommended by the dietitian.
[2018-03-28] MEDS: Morphine 4 MG/ML VIAL SLOW IVP PRN (22:12)
[2018-03-29] MEDS: Morphine 4 MG/ML VIAL SLOW IVP PRN ×5 (00:26→08:33)
[2018-03-29] MEDS: traMADol HCl 50 MG TAB PO PRN ×2 (00:28→06:26)
[2018-03-29] MEDS: metroNIDAZOLE 500 MG in Premix Bag 1 BAG IVPB SCH ×3 (06:25→22:40)
[2018-03-29 07:05] LABS: Hemoglobin 10.8 g/dL (12.0-16.0); Mean Corpuscular HGB CONC 34.4 g/dL (32.0-36.0); Mean Corpuscular Hemoglobin 33.9 pg (27.0-31.0); Mean Corpuscular Volume 98.6 fL (78.0-98.0); Mean Platelet Volume 6.9 fL (7.4-10.4); Platelet Count 227 thou/uL (130-400); RBC Distribution Width 14.9 % (11.5-14.5); Red Blood Cell (RBC) Count 3.18 mill/uL (4.20-5.40); White Blood Cell (WBC) Count 5.8 thou/uL (4.8-10.8)
[2018-03-29] MEDS: Famotidine/PF 20 mg/2ml Vial SLOW IVP SCH ×2 (08:33→21:43)
[2018-03-29] MEDS: Enoxaparin Sodium 30 MG/0.3 ML SYRINGE SC SCH (08:33)
[2018-03-29] MEDS: D5W-AA 4.25% with LYTES 1,000 ML IV SCH (08:35)
[2018-03-29 08:43] LABS: Band 43 % (5-11); Lymphocytes 11 % (21-51); MDiff Complete? YES; Monocytes 7 % (0-10); Neutrophil 38 % (42-75); PLT Morphology Comment Appears Adequate; Polychromasia SLIGHT = 2-3 cells (100X) (0-2/hpf); Reactive Lymphocytes 1 % (0-10); Toxic Granulation SLIGHT; Vacuoles SLIGHT
[2018-03-29] MEDS ORDERED: Morphine IR Tab 15 MG TAB PO PRN (09:47)
[2018-03-29] MEDS: Morphine IR Tab 15 MG TAB PO PRN ×4 (10:37→23:25)
[2018-03-29 13:16] LABS: CMV log 10 Quant 2.686 (.)
--- NOTE | 2018-03-29 13:52 | PDOC.PN ---
- Subjective Encounter Start Date: 03/29/18 Encounter Start Time: 10:50 Pt feeling better, walked with PT. no f/C, no N/V/D/C, still using IV pain meds Monica po fine awaiting Bx and serologies All systems eviewed and neg x as above - Objective Resuscitation Status: Resuscitation Status FULL:Full Resuscitation MAR Reviewed: Yes Vital Signs & Weight: Vital Signs (12 hours) Temp Pulse Pulse Resp BP BP Pulse Ox 03/29/18 11:34 98.3 F 84 20 102/63 92 L 03/29/18 10:48 84 110/60 03/29/18 08:00 98.2 F 87 20 110/59 L 96 03/29/18 04:00 98.2 F 88 20 121/76 93 L Pulse Ox 03/29/18 11:34 03/29/18 10:48 92 L 03/29/18 08:00 03/29/18 04:00 Weight Admit Weight 129 lb 6.4 oz Weight 124 lb 3.688 oz I&O: 03/28/18 03/29/18 03/30/18 06:59 06:59 06:59 Intake Total 2890 1820 Output Total 400 3 Balance 2490 1817 Result Diagrams: 03/29/18 06:48 03/27/18 12:10 Phys Exam - Physical Examination Constitutional: NAD cachectic HEENT: PERRLA, moist MMs, sclera anicteric, oral pharynx no lesions Neck: no nodes, no JVD, supple, full ROM Respiratory: no wheezing, no rales, no rhonchi, clear to auscultation bilateral Cardiovascular: RRR, no significant murmur, no rub Gastrointestinal: soft, non-tender, no distention, positive bowel sounds Musculoskeletal: no edema, pulses present Neurological: non-focal, normal sensation, moves all 4 limbs Lymphatic: no nodes Psychiatric: normal affect, A&O x 3 Skin: no rash, normal turgor, cap refill <2 seconds Dx/Plan (1) Radiation proctitis Code(s): K62.7 - RADIATION PROCTITIS Status: Acute (2) External hemorrhoid Code(s): K64.4 - RESIDUAL HEMORRHOIDAL SKIN TAGS Status: Acute (3) Hypokalemia Code(s): E87.6 - HYPOKALEMIA Status: Acute (4) Hyponatremia Code(s): E87.1 - HYPO-OSMOLALITY AND HYPONATREMIA Status: Acute (5) Moderate protein-calorie malnutrition Code(s): E44.0 - MODERATE PROTEIN-CALORIE MALNUTRITION Status: Acute - Plan cont current plan of care, out of bed/ambulate to po pain meds home possibly tomorrow * .
--- NOTE | 2018-03-29 16:29 | PRG ---
DATE OF SERVICE: 03/29/2018 SUBJECTIVE: She initially had a better morning this morning. She has had 1 bowel movement today. T his was running this morning. She has taken increased oral intake last night and this morning, but d oes have abdominal distention this afternoon. No nausea or vomiting. She is being transitioned from IV to oral pain medication and she has concerns regarding this. OBJECTIVE: VITAL SIGNS: Temperature 98.3, pulse 84, blood pressure 102/63. GENERAL: She is in no acute distress. She is alert and oriented x3. LUNGS: Clear to auscultation bilaterally. HEART: Regular rate and rhythm. ABDOMEN: Mildly distended. Her bowel sounds are present. She is soft without any guarding and no s ignificant tenderness. EXTREMITIES: No lower extremity edema. LABORATORY DATA: White blood cell count 5.8, hemoglobin 10.8, platelets 227, creatinine 0.56. IMPRESSION: 1. Diffuse colitis or typhlitis possibly related to recent chemotherapy and radiation. Stool studie s are negative at this point. Biopsies are pending including viral stains. Treatment is supportive at this point. 2. Colon cancer, status post radiation and chemo, awaiting surgical resection. Obviously, surgery w ill not be an option until she is stronger and the colitis is resolved. She may not be able to compl ete the chemotherapy or radiation course at this point. 3. Rectal pain, chronic. She is working on transitioning from IV to oral pain medication. 4. Protein calorie malnutrition. PLAN: 1. Continue to try to advance her oral intake. 2. We will await biopsy results.
[2018-03-30] MEDS: D5W-AA 4.25% with LYTES 1,000 ML IV SCH ×2 (00:50→12:42)
[2018-03-30] MEDS: Morphine IR Tab 15 MG TAB PO PRN ×4 (03:52→14:55)
[2018-03-30] MEDS: metroNIDAZOLE 500 MG in Premix Bag 1 BAG IVPB SCH (07:30)
[2018-03-30 08:50] VITALS: BP 115/66; TEMP 98.4
[2018-03-30] MEDS: Famotidine/PF 20 mg/2ml Vial SLOW IVP SCH (10:04)
[2018-03-30] MEDS: Enoxaparin Sodium 30 MG/0.3 ML SYRINGE SC SCH (10:04)
--- NOTE | 2018-03-30 12:28 | DIS ---
PRIMARY PARKS RECREATION COORDINATOR: Dr. Terrence Jackson PRIMARY ONCOLOGIST: Dr. Adrian Neal DATE OF ADMISSION: 03/25/2018 DATE OF DISCHARGE: 03/30/2018 DISCHARGE DIAGNOSES: 1. Presumed radiation proctitis. 2. External hemorrhoids. 3. Colorectal cancer of the rectosigmoid junction. 4. Hyponatremia. 5. Moderate protein calorie malnutrition. 6. Acute cystitis, present on admission. CONSULTATIONS: 1. Oncology, Dr. Adrian Neal. 2. Gastroenterology, Dr. Terrence Jackson. PROCEDURES: Colonoscopy 03/27/[address] Jose Burch revealing diffuse colonic ulcerations, 5 mm in size, status post biopsy. HISTORY AND PHYSICAL: Ms. Browning is a 57-year-old female recently diagnosed with colorectal cancer, undergoing a chemoradiation. She developed increased pain with defecation to the point where she is unable to eat due to painful bowel movements and was subsequently presented to the hospital for evalu ation. She was seen in the ER on 03/25/2018, she was found to be malnourished, dehydrated and having uncontr olled pain. We were subsequently called for admission. HOSPITAL COURSE: The patient was seen and examined by Dr. Gregory, placed in inpatient status. Oncolog y and Gastroenterology were consulted and saw her on 03/26/2018. She was prepped for colonoscopy and underwent that on 03/27/2018. She remained on IV pain medicine for control and a clear liquid diet. On 03/27/2018 she was started on PPN by Dr. Burch to supplement. Between 03/27/2018 and 03/30/2018, her symptoms vastly improved and she was transitioned to oral pain medications at her home dose. Teodora miles was tolerating Ensure between meals and was eating a full liquid diet. On 03/30/2018 she was advan marcelino to a regular diet which she tolerated well. I discussed the case with Dr. Terrence Jackson and he c leared her for discharge with outpatient followup. PHYSICAL EXAMINATION: The patient was seen and examined on the day of discharge. Discharge plan and disposition was discussed with the patient face to face at the bedside. DISCHARGE MEDICATIONS: None. NEW MEDICATIONS: 1. Cipro 500 mg p.o. b.i.d. for 10 more days. 2. Flagyl 500 mg p.o. t.i.d. for 10 more days. Prescription sent. 3. Morphine sulfate 15-30 30 mg p.o. every 3 hours p.r.n. moderate to severe pain. No new prescript ion was sent. 4. Zofran 8 mg p.o. q.8 hours p.r.n. 5. Compazine 10 mg p.o. q.6 hours p.r.n. 6. Imodium 2 mg p.o. every 2 hours p.r.n. 7. Atropine as needed. 8. She has been asked to start on MiraLax 17 grams dissolved in fluid p.o. daily to start tomorrow, 03/31/2018. FOLLOWUP APPOINTMENTS: 1. Dr. Neal within a week. 2. Gastroenterology in 2-3 weeks. DISCHARGE CONDITION: Stable. DISPOSITION: She will be discharged home via private vehicle. DISCHARGE ACTIVITY: As tolerated. DISCHARGE DIET: Regular diet recommended with MiraLax. Also, recommend she add Boost or Ensure 3 ti mes a day with meals. She asked about using ice away protein instead which I told her was fine, but she needs about 90 grams of additional protein daily.
[2018-03-30] MEDS ORDERED: metroNIDAZOLE 500 MG TAB PO SCH (15:00)
[2018-03-30] MEDS ORDERED: Ciprofloxacin 500 MG TAB PO SCH (20:00)
== END 2018-03-30 16:15 | disposition home or self-care (01) | DRG 375 ==
LOC: ERS 15:17 → OBSVTOIN 17:45 → 2SW 17:45 → 2NO 03-26 12:25 → ONC 03-28 19:01
PROVIDERS: ADMIT Internal Medicine; ATTEND Internal Medicine
PROC: 0DBM8ZX Excision of Descending Colon, Via Natural or Artificial Opening Endoscopic, Diagnostic (ICD-10-PCS; principal; 2018-03-27)
PROC: 3E0336Z Introduction of Nutritional Substance into Peripheral Vein, Percutaneous Approach (ICD-10-PCS; 2018-03-29)
DX: C19 Malignant neoplasm of rectosigmoid junction (principal); E87.1 Hypo-osmolality and hyponatremia; E44.0 Moderate protein-calorie malnutrition; Z68.1 Body mass index [BMI] 19.9 or less, adult; K62.6 Ulcer of anus and rectum; N30.00 Acute cystitis without hematuria; K56.7 Ileus, unspecified; K62.7 Radiation proctitis; F17.210 Nicotine dependence, cigarettes, uncomplicated; E87.6 Hypokalemia; K64.4 Residual hemorrhoidal skin tags; K52.9 Noninfective gastroenteritis and colitis, unspecified; E86.0 Dehydration
CPT/HCPCS: 36415; 51701; 74177; 80048; 80053; 81003; 82274; 83605; 83630; 83690; 83735; 85025; 85060; 86850; 86900; 86901; 87045; 87046; 87086; 87324; 87449; 87497; 87899; 88305; 90471; 90670; 93005; 93010; 96361; 96365; 96375; 99406; G0009; G8978-GP-CK; G8979-GP-CI; J0744; J1650; J2270; J2405; J2704; J3010; J3475; J3480; J7050; S0028

== ENCOUNTER 2018-05-19 10:00 | Inpatient (IN) | payer BC ==
[2018-05-25] MEDS ORDERED: Fentanyl 100 MCG/2 ML VIAL ONE ×3 (06:39→06:52)
[2018-05-25] MEDS ORDERED: Dexamethasone 4 mg/ml Vial ONE (06:39)
[2018-05-25] MEDS ORDERED: Midazolam HCl 2 mg/2 ml Vial ONE ×3 (06:39→06:52)
[2018-05-25] MEDS ORDERED: Lidocaine 1% (PF) 30 ML VIAL ONE (06:52)
[2018-05-25] MEDS ORDERED: cefOXitin 2 GM in Sodium Chloride 0.9% 100 ML IVPB SCH (07:15)
[2018-05-25] MEDS ORDERED: cefOXitin 2 GM VIAL ONE (08:22)
[2018-05-25] MEDS ORDERED: Indocyanine Green 25 MG/10 ML VIAL ONE (08:22)
[2018-05-25] MEDS ORDERED: Albuterol Sulfate HFA (OR ONLY) ONE (10:13)
[2018-05-25] MEDS ORDERED: Promethazine HCl 25 MG/ML VIAL IM PRN (10:42)
[2018-05-25] MEDS ORDERED: hydrALAZINE 20 MG/ML VIAL SLOW IVP PRN (10:42)
[2018-05-25] MEDS ORDERED: Ondansetron PF 4 MG/2 ML Vial IVP PRN (10:42)
[2018-05-25] MEDS ORDERED: Meperidine HCl/PF 25 MG/ML VIAL ONE (10:51)
[2018-05-25] MEDS ORDERED: Acetaminophen 1,000 MG in Premix Bag 1 BAG IVPB SCH (12:00)
[2018-05-25] MEDS: Fentanyl 100 MCG/2 ML VIAL SLOW IVP PRN ×3 (13:23→22:22)
[2018-05-25] MEDS: Sodium Chloride 0.9% 1,000 ML IV SCH ×3 (13:27→23:14)
[2018-05-25 15:20] VITALS: BMI 18.8
[2018-05-25] MEDS: Acetaminophen 1,000 MG in Premix Bag 1 BAG IVPB SCH ×2 (15:51→23:10)
[2018-05-25] MEDS: cefOXitin 2 GM in Sodium Chloride 0.9% 100 ML IVPB SCH (17:16)
[2018-05-25] MEDS: Famotidine 20 MG TAB PO SCH (20:41)
[2018-05-25] MEDS: Famotidine/PF 20 mg/2ml Vial SLOW IVP SCH (22:05)
[2018-05-26] MEDS: cefOXitin 2 GM in Sodium Chloride 0.9% 100 ML IVPB SCH (00:50)
[2018-05-26] MEDS ORDERED: Mag-Al 1200 mg/1200 mg/30 ML UDCUP PO PRN (01:24)
[2018-05-26] MEDS: Fentanyl 100 MCG/2 ML VIAL SLOW IVP PRN ×5 (02:33→12:43)
[2018-05-26 04:59] LABS: #Eosinphils 0.1 thou/uL (0.0-0.7); #Lymphocytes 1.1 thou/uL (1.20-3.40); #Monocytes 0.9 thou/uL (0.11-0.59); #Neutrophils 8.5 thou/uL (1.40-6.50); %Basophils 0.1 % (0.0-1.0); %Eosinophils 0.5 % (0.0-10.0); %Lymphocytes 10.6 % (21.0-51.0); %Monocytes 8.2 % (0.0-10.0); %Neutrophils 80.6 % (42.0-75.0); Hemoglobin 12.3 g/dL (12.0-16.0); Mean Corpuscular HGB CONC 33.1 g/dL (32.0-36.0); Mean Corpuscular Hemoglobin 32.5 pg (27.0-31.0); Mean Corpuscular Volume 98.1 fL (78.0-98.0); Mean Platelet Volume 6.8 fL (7.4-10.4); Platelet Count 200 thou/uL (130-400); RBC Distribution Width 12.5 % (11.5-14.5); Red Blood Cell (RBC) Count 3.78 mill/uL (4.20-5.40); White Blood Cell (WBC) Count 10.6 thou/uL (4.8-10.8)
[2018-05-26 05:10] LABS: Anion Gap 9 mmol/L (10-20); BUN (Urea Nitrogen) 8 mg/dL (9.8-20.1); Calc. Creatinine Clearance 79 mL/min (70-130); Calcium 8.7 mg/dL (7.8-10.44); Carbon Dioxide 24 mmol/L (22-29); Chloride 106 mmol/L (98-107); Estimated GFR-MDRD Greater than 90; Glucose 109 mg/dL (70-105); Potassium 3.7 mmol/L (3.5-5.1); Sodium 135 mmol/L (136-145)
[2018-05-26] MEDS: Acetaminophen 1,000 MG in Premix Bag 1 BAG IVPB SCH (05:19)
[2018-05-26] MEDS: Enoxaparin Sodium 40 MG/0.4 ML SYRINGE SC SCH (08:30)
[2018-05-26] MEDS: Famotidine/PF 20 mg/2ml Vial SLOW IVP SCH ×2 (08:31→22:05)
[2018-05-26] MEDS: Sodium Chloride 0.9% 1,000 ML IV SCH ×2 (08:32→14:32)
[2018-05-26] MEDS: Famotidine 20 MG TAB PO SCH ×2 (08:43→22:06)
--- NOTE | 2018-05-26 09:16 | OP ---
DATE OF PROCEDURE: 05/25/2018 PREOPERATIVE DIAGNOSIS: Locally advanced rectal cancer at 4 cm from anal verge, status post neoadjuv ant chemoradiation. POSTOPERATIVE DIAGNOSIS: Locally advanced rectal cancer at 4 cm from anal verge, status post neoadju vant chemoradiation. PROCEDURE: Da Aleyda laparoscopic low anterior resection with very low pelvic anastomosis and diverti ng loop ileostomy. SURGEON: Juliano Nicole M.D. ANESTHESIA: General. ESTIMATED BLOOD LOSS: 150 mL. COMPLICATIONS: None. FINDINGS: Grossly negative margin, but final margin sent as final EEA stapled donut. BRIEF HISTORY: The patient is a 58-year-old female with a locally advanced mid rectal tumor status post neoadjuvant treatment, presents for definitive surgery. TECHNIQUE: The patient underwent mechanical and antibiotic bowel prep via the ERS protocol. TECHNIQUE: The patient was taken to the operating room and placed supine on the table. After genera l anesthetic was obtained, she was placed in lithotomy position. Jeter catheter was placed. Her abd omen were shaved, prepped, and draped in a sterile fashion. Left subcostal 5-mm Optiview trocar was placed. High-flow pneumoperitoneum was obtained. Right lower quadrant robot stapler trocar was plac ed. The camera port is placed to the right of the umbilicus, robot assist port is placed in left low er quadrant. Assisting trocar was placed, 11 mm port was placed in the right abdomen. The patient h ad been placed in Trendelenburg position. All ports are docked to the robot. The peritoneum along t he medial sigmoid colon mesentery was incised. The proximal inferior mesenteric artery is skeletoniz ing. The left ureter was found and excluded from the dissection. Vessel sealer was used to take the inferior mesenteric artery near its base. Full dissection through the mesentery was performed, excl uding the ureter. Dissection is performed on the lateral aspect of the sigmoid colon to mobilize the sigmoid colon. A robot assist port is used to raise up the rectosigmoid and the posterior dissectio n is performed down into the mesorectal space all the way to the levator muscles. The left and right lateral stalks were taken all the way down the levator muscles. There was some scarring anteriorly to the posterior vagina that was carefully dissected off all the way down to the levator muscles. Th e area of previous tumor could be appreciated, but in order to confirm a finger was placed in the madeline s to feel the radiated ulcer at approximately 4 cm from the anal verge. There was plenty of rectum d issected distal to this. Robot stapler was fired across the low rectum. Finger was then placed in t he anus to make sure there was no palpable disease which there was not. Robot assist port in the lef t lower quadrant is enlarged to 3 cm and a muscle splitting incision is performed. All ports are und ocked from the robot. The Nabeel wound protector is placed and the proximal colon is brought up and out here. Location is picked for the proximal EEA stapler and a colotomy was made and the 31 anvil p assed proximally, its pin brought out on the antimesenteric surface of the colon. The colon is then stapled off just distal to this anvil. The specimen is opened on the back table to reveal the ulcera heath mass to be in the specimen and the margin grossly negative. Specimen is sent to path for final d iagnosis. The proximal EEA colon is dropped back into the abdomen. The Nabeel was twisted, held in place using a Cande clamp. The abdomen is reinsufflated. The 31 EEA base was brought up through the anus. There was very little rectum left. The sharp pin brought out through the previous low staple line, connected to the anvil from above, the stapler is tightened down and fired. Care was taken to avoid incorporation of the posterior vaginal wall in the staple line. Two good rings of tissue were obtained. The distal most of which is sent as the final distal margin. There is no bleeding in the abdomen. All port sites were infiltrated using local anesthetic. The right lower quadrant stapler port fascial defect is closed using GraNee needle Vicryl tie. All ports are removed under camera vis ualization. Pneumoperitoneum was let down. Muscle splitting incision is performed in the right lowe r quadrant and a loop of ileum was brought up, a loop of distal ileum is brought up as a loop ileosto my. The fascial defect in the left lower quadrant is closed in 2 layers using PDS. All wounds are i rrigated and closed using 3-0 Vicryl, 4-0 Monocryl, and Dermabond. The loop ileostomy was then matur ed in the typical fashion using Vicryl and an ostomy device was placed. The patient is en route to r ecovery in stable condition. All instrument counts, needle counts, lap counts are correct.
[2018-05-26] MEDS ORDERED: traMADol HCl 50 MG TAB PO PRN (13:16)
[2018-05-26] MEDS: traMADol HCl 50 MG TAB PO PRN ×2 (14:48→22:04)
[2018-05-26] MEDS: Pseudoephedrine HCl 30 MG TAB PO PRN (17:18)
[2018-05-26] MEDS: Acetaminophen 325 MG TAB PO PRN (18:20)
[2018-05-26] MEDS: Fluticasone Propionate Nasal Spray 16 gm Bottle NASAL SCH (22:06)
[2018-05-27] MEDS: traMADol HCl 50 MG TAB PO PRN ×2 (04:14→11:03)
[2018-05-27] MEDS: Enoxaparin Sodium 40 MG/0.4 ML SYRINGE SC SCH (09:35)
[2018-05-27] MEDS: Fluticasone Propionate Nasal Spray 16 gm Bottle NASAL SCH (09:35)
[2018-05-27] MEDS: Famotidine 20 MG TAB PO SCH (09:36)
[2018-05-27] MEDS: Sodium Chloride 0.9% 1,000 ML IV SCH (09:40)
[2018-05-27] MEDS: Famotidine/PF 20 mg/2ml Vial SLOW IVP SCH (10:53)
[2018-05-27] MEDS: Pseudoephedrine HCl 30 MG TAB PO PRN (11:03)
[2018-05-27] MEDS: Acetaminophen 325 MG TAB PO PRN (11:03)
[2018-05-27 16:25] VITALS: BP 126/85; TEMP 98.2
== END 2018-05-27 16:59 | disposition home or self-care (01) | DRG 331 ==
LOC: SURG A 05-25 06:03
PROVIDERS: ADMIT Surgery; ATTEND Surgery
PROC: 0DBP4ZZ Excision of Rectum, Percutaneous Endoscopic Approach (ICD-10-PCS; principal; 2018-05-25)
PROC: 0D1B4Z4 Bypass Ileum to Cutaneous, Percutaneous Endoscopic Approach (ICD-10-PCS; 2018-05-25)
PROC: 8E0W3CZ Robotic Assisted Procedure of Trunk Region, Percutaneous Approach (ICD-10-PCS; 2018-05-25)
DX: C20 Malignant neoplasm of rectum (principal)
CPT/HCPCS: 36415; 36416; 80048; 85025; 88309; J0131; J0694; J1100; J2001; J2175; J2250; J2405; J3010; J7050; S0028

== ENCOUNTER 2018-05-19 10:18 | Outpatient (CLI) | payer BC ==
[2018-05-19 12:40] LABS: #Eosinphils 0.2 thou/uL (0.0-0.7); #Lymphocytes 1.5 thou/uL (1.20-3.40); #Monocytes 1.3 thou/uL (0.11-0.59); #Neutrophils 9.8 thou/uL (1.40-6.50); %Basophils 0.3 % (0.0-1.0); %Eosinophils 1.3 % (0.0-10.0); %Lymphocytes 11.9 % (21.0-51.0); %Monocytes 9.9 % (0.0-10.0); %Neutrophils 76.6 % (42.0-75.0); Hemoglobin 14.7 g/dL (12.0-16.0); Mean Corpuscular HGB CONC 32.7 g/dL (32.0-36.0); Mean Corpuscular Hemoglobin 32.5 pg (27.0-31.0); Mean Corpuscular Volume 99.2 fL (78.0-98.0); Platelet Count 205 thou/uL (130-400); RBC Distribution Width 13.1 % (11.5-14.5); Red Blood Cell (RBC) Count 4.54 mill/uL (4.20-5.40); White Blood Cell (WBC) Count 12.8 thou/uL (4.8-10.8)
[2018-05-19 13:06] LABS: Anion Gap 12 mmol/L (10-20); BUN (Urea Nitrogen) 13 mg/dL (9.8-20.1); Calc. Creatinine Clearance 0 mL/min (70-130); Calcium 9.8 mg/dL (7.8-10.44); Carbon Dioxide 29 mmol/L (22-29); Chloride 101 mmol/L (98-107); Estimated GFR-MDRD 72; Glucose 70 mg/dL (70-105); Hemoglobin A1c 4.7 % (4.0-6.0); Potassium 4.2 mmol/L (3.5-5.1); Sodium 138 mmol/L (136-145)
== END 2018-05-19 10:19 | disposition home or self-care (01) ==
LOC: LABBT 10:18
PROVIDERS: ATTEND Surgery
DX: Z01.812 Encounter for preprocedural laboratory examination (principal); C20 Malignant neoplasm of rectum
CPT/HCPCS: 80048; 83036; 85025

== ENCOUNTER 2018-05-19 14:31 | Outpatient (CLI) | payer BC ==
--- NOTE | 2018-05-19 18:10 | RAD ---
TWO VIEWS OF THE CHEST: 05/19/18 COMPARISON: None. HISTORY: Cough for four weeks and fever. FINDINGS: Two views of the chest show normal sized cardiomediastinal silhouette. There is a right IJ Mediport w ith its tip at the superior vena cava. There is no evidence of consolidation, mass, or pleural effusi on. Degenerative changes are seen in the spine. IMPRESSION: No evidence of acute cardiopulmonary disease. POS: [facility]
== END 2018-05-19 14:32 | disposition home or self-care (01) ==
LOC: BICRAD 14:31
PROVIDERS: ATTEND Family Medicine
DX: R50.9 Fever, unspecified (principal); R05 Cough
CPT/HCPCS: 71046; 80048; 83036; 85025

== ENCOUNTER 2018-05-30 12:59 | Outpatient (CLI) | payer BC | END 2018-05-30 13:00 | disposition home or self-care (01) | LOC: WCC 12:59 | PROVIDERS: ATTEND Family Medicine | DX: K94.10 Enterostomy complication, unspecified (principal) | CPT/HCPCS: 99211; G0463 ==

== ENCOUNTER 2018-06-07 07:47 | Outpatient (CLI) | payer BC ==
[2018-06-07] MEDS ORDERED: Sodium Chloride 0.9% 15 ML NEB ONE (18:00)
== END 2018-06-07 07:48 | disposition home or self-care (01) ==
LOC: WCC 07:47
PROVIDERS: ATTEND Family Medicine
DX: K94.10 Enterostomy complication, unspecified (principal)
CPT/HCPCS: 99211; A4218; G0463

== ENCOUNTER 2018-06-08 10:08 | Day surgery (SDC) | payer BC ==
[2018-06-08 10:30] VITALS: BP 120/68; TEMP 98.3
[2018-06-08] MEDS ORDERED: Ondansetron PF 4 MG/2 ML Vial SLOW IVP PRN (11:18)
[2018-06-08] MEDS ORDERED: Multivitamins, Adult 10 ML in Sodium Chloride 0.9% 1,000 ML IV SCH (11:30)
[2018-06-08] MEDS ORDERED: Sodium Chloride 0.9% 30 ML ONE (12:32)
== END 2018-06-08 15:45 | disposition home or self-care (01) ==
LOC: ONC/OP 10:08
PROVIDERS: ATTEND Surgery
DX: E86.0 Dehydration (principal); Z79.899 Other long term (current) drug therapy; Z88.5 Allergy status to narcotic agent; Z88.8 Allergy status to other drugs, medicaments and biological substances
CPT/HCPCS: 96361; 96365; 96366; J2405; J7050

== ENCOUNTER 2018-06-29 08:24 | Outpatient (CLI) | payer BC ==
[2018-06-29] MEDS ORDERED: MD-Gastroview 120 ML BOT ONE (10:54)
--- NOTE | 2018-06-29 11:10 | RAD ---
SINGLE COLUMN GASTROGRAFIN BARIUM ENEMA: History: Adenocarcinoma of the rectum. The patient has a colostomy. Revision is planned. Comparison: None. Exposure: 0.5 minutes, 4.552 mGy*cm^2. 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 Bowel gas pattern is nonspecific. Gastrografin was administered in a retrograde fashion. There is evidence of a leak at the level of th e anastomosis. Gastrografin does pass to the level of the splenic flexure. IMPRESSION: Leak involving the rectum at the level of the anastomosis. Results of study discussed with Dr. Osman mcqueen at the completion of the exam, 06-29-18. Code CR POS: [facility]
== END 2018-06-29 08:25 | disposition home or self-care (01) ==
LOC: RAD 08:24
PROVIDERS: ATTEND Surgery
DX: C20 Malignant neoplasm of rectum (principal); T82.339A Leakage of unspecified vascular graft, initial encounter
CPT/HCPCS: 74270

== ENCOUNTER 2018-11-13 10:08 | Outpatient (CLI) | payer BC ==
--- NOTE | 2018-11-13 11:46 | RAD ---
Single contrast barium enema CLINICAL HISTORY: Anastomotic leak, follow-up/enterostomy malfunction COMPARISON: Reference is made to 06/29/2018 exam Radiation exposure data: 0.2 minutes intermittent fluoroscopy, 60 mcg/sq m FINDINGS: Under low pressure, retrograde instillation of thin liquid barium, there is contrast opacif ication of the clinically relevant portion of the colon, as requested by ordering physician from the level of the anorectal verge to the transverse colon. At site of prior anastomotic leak, there is redemonstration of abnormal extraluminal contrast leakage. This has decreased in volume since the comparison exam although does persist. IMPRESSION: Persistent, although decreased in volume, abnormal leakage of contrast from the site of d istal colonic anastomosis.
== END 2018-11-13 10:09 | disposition home or self-care (01) ==
LOC: RAD 10:08
PROVIDERS: ATTEND Surgery
DX: K94.13 Enterostomy malfunction (principal); K91.89 Other postprocedural complications and disorders of digestive system
CPT/HCPCS: 74270

== ENCOUNTER 2018-11-16 10:52 | Outpatient (CLI) | payer BC ==
--- NOTE | 2018-11-16 14:04 | MMO ---
Bilateral MAMMO Bilat Screen [facility]. CLINICAL HISTORY: Patient is 58 years old and is seen for screening. The patient has no family history of breast cancer. The patient has a history of other cancer. VIEWS: The views performed were: bilateral craniocaudal with tomosynthesis and bilateral mediolateral oblique with tomosynthesis. FILMS COMPARED: The present examination has been compared to a prior imaging study performed at [facility] on 08/29/2017. MAMMOGRAM FINDINGS: The breasts are heterogeneously dense, which could obscure a lesion on mammography. There are no suspicious masses, suspicious calcifications, or new areas of architectural distortion. IMPRESSION: THERE IS NO MAMMOGRAPHIC EVIDENCE OF MALIGNANCY. A ROUTINE FOLLOW-UP MAMMOGRAM IN 1 YEAR IS RECOMMENDED. THE RESULTS OF THIS EXAM WERE SENT TO THE PATIENT. ACR BI-RADS Category 1 - Negative MAMMOGRAPHY NOTE: 1. A negative mammogram report should not delay a biopsy if a dominant of clinically suspicious mass is present. 2. Approximately 10% to 15% of breast cancers are not detected by mammography. 3. Adenosis and dense breasts may obscure an underlying neoplasm.
== END 2018-11-16 10:53 | disposition home or self-care (01) ==
LOC: BICMAMMO 10:52
PROVIDERS: ATTEND Family Medicine
DX: Z12.31 Encounter for screening mammogram for malignant neoplasm of breast (principal); Z85.89 Personal history of malignant neoplasm of other organs and systems
CPT/HCPCS: 77063; 77067

== ENCOUNTER 2018-11-21 10:30 | Inpatient (IN) | payer BC ==
[2018-11-21 11:19] VITALS: BMI 19.4
[2018-11-23] MEDS ORDERED: Fentanyl 250 MCG/5 ML VIAL ONE (06:12)
[2018-11-23] MEDS ORDERED: Sodium Chloride 0.9% 100 ML ONE (06:16)
[2018-11-23] MEDS ORDERED: cefOXitin 2 GM VIAL ONE (06:16)
[2018-11-23] MEDS ORDERED: Bupivacaine/Epinephrine 0.25% 30 ML VIAL ONE (06:30)
[2018-11-23] MEDS ORDERED: Midazolam HCl 2 mg/2 ml Vial ONE (07:12)
[2018-11-23] MEDS ORDERED: Promethazine HCl 25 MG/ML VIAL SLOW IVP PRN (08:53)
[2018-11-23] MEDS ORDERED: Ondansetron HCl/PF 4 MG/2 ML Vial IVP PRN (08:53)
[2018-11-23] MEDS ORDERED: Promethazine HCl 25 MG/ML VIAL IM PRN ×2 (08:53→09:12)
[2018-11-23] MEDS ORDERED: traMADol HCl 50 MG TAB PO PRN (09:12)
[2018-11-23] MEDS ORDERED: hydrALAZINE 20 MG/ML VIAL SLOW IVP PRN (09:12)
[2018-11-23] MEDS ORDERED: Fentanyl 100 MCG/2 ML VIAL SLOW IVP PRN (09:12)
[2018-11-23] MEDS ORDERED: Fentanyl 100 MCG/2 ML VIAL ONE ×2 (09:21→10:59)
--- NOTE | 2018-11-23 10:53 | OP ---
DATE OF PROCEDURE: 11/23/2018 PREOPERATIVE DIAGNOSIS: Rectal cancer tension ileostomy. POSTOPERATIVE DIAGNOSIS: Rectal cancer tension ileostomy. PROCEDURE PERFORMED: Ileostomy reversal with small-bowel resection anastomosis. ANESTHESIA: General. ESTIMATED BLOOD LOSS: 20 mL. COMPLICATIONS: None. SPECIMEN: Small bowel. TECHNIQUE: The patient was taken to the operating room and laid supine on the operating room table. After general anesthetic was obtained, the abdomen was prepped and draped in a sterile fashion. The ileostomy was ellipsed out at the skin, cords were set down against small bowel into the abdominal cavity. All adhesions were taken down. There were minimal adhesions in the abdomen. A MAURICE 75 stapler was fired across just proximal and distal to the skin portion of the ileostomy. Mesentery was taken using Cande clamps, silk tie. A small enterotomy was made on the antimesenteric surface of each end and the [id number]-[id number] anastomosis was performed using MAURICE 75 stapler. The common enterotomy was closed using a running 2-0 Vicryl. The serosa was reinforced using 2-0 Vicryl. A crotch stitch was placed using 3-0 silk and the mesenteric defect was closed using 3-0 silk. There was no evidence of ischemia on the staple line. The anastomosis was placed back on the abdomen. The posterior fascia was closed using PDS. The anterior fascia was closed using PDS. The wound was irrigated. Local anesthetic was applied. Pursestring of Prolene was used to close the wound with a Asya in the middle. The patient was sent to Recovery in stable condition. Job ID: [id number]
[2018-11-23] MEDS: Sodium Chloride 0.9% 1,000 ML IV SCH ×3 (13:13→23:18)
[2018-11-23] MEDS ORDERED: Rocuronium Bromide 10 MG/ML (10ML VIAL) ONE (14:41)
[2018-11-23] MEDS ORDERED: PROPOFOL 200 MG/20 ML VIAL ONE (14:41)
[2018-11-23] MEDS ORDERED: Ketorolac Tromethamine 30 MG/ML VIAL ONE (14:41)
[2018-11-23] MEDS ORDERED: Lidocaine 1% PF 5 ML VIAL ONE (14:41)
[2018-11-23] MEDS ORDERED: Ondansetron PF 4 MG/2 ML Vial ONE (14:41)
[2018-11-23] MEDS ORDERED: Dexamethasone 20 MG/5 ML VIAL ONE (14:41)
[2018-11-23] MEDS ORDERED: Metoclopramide HCl 10 MG/2 ML VIAL ONE (14:41)
[2018-11-23] MEDS: Famotidine 20 MG TAB PO SCH ×2 (16:00→20:03)
[2018-11-23] MEDS: Acetaminophen 1,000 MG in Premix Bag 1 BAG IVPB SCH ×3 (16:00→23:18)
[2018-11-23] MEDS: Famotidine/PF 20 mg/2ml Vial SLOW IVP SCH ×2 (16:00→20:03)
[2018-11-23] MEDS: Ondansetron PF 4 MG/2 ML Vial IVP PRN ×2 (17:37→23:15)
[2018-11-23] MEDS: Citalopram 10 MG TAB PO SCH (20:03)
[2018-11-24] MEDS: traMADol HCl 50 MG TAB PO PRN ×3 (00:53→14:22)
[2018-11-24] MEDS: Fentanyl 100 MCG/2 ML VIAL SLOW IVP PRN ×3 (04:20→20:31)
[2018-11-24] MEDS: Acetaminophen 1,000 MG in Premix Bag 1 BAG IVPB SCH (05:45)
[2018-11-24 06:05] LABS: #Lymphocytes 0.6 thou/uL (1.20-3.40); #Monocytes 0.7 thou/uL (0.11-0.59); %Basophils 0.1 % (0.0-1.0); %Eosinophils 0.2 % (0.0-10.0); %Lymphocytes 6.6 % (21.0-51.0); %Monocytes 7.1 % (0.0-10.0); Hemoglobin 12.3 g/dL (12.0-16.0); Mean Corpuscular HGB CONC 34.4 g/dL (32.0-36.0); Mean Corpuscular Hemoglobin 36.2 pg (27.0-31.0); Mean Platelet Volume 7.6 fL (7.4-10.4); Platelet Count 148 thou/uL (130-400); RBC Distribution Width 12.6 % (11.5-14.5); Red Blood Cell (RBC) Count 3.41 mill/uL (4.20-5.40); White Blood Cell (WBC) Count 9.4 thou/uL (4.8-10.8)
[2018-11-24 06:25] LABS: Anion Gap 11 mmol/L (10-20); BUN (Urea Nitrogen) 9 mg/dL (9.8-20.1); Calc. Creatinine Clearance 90 mL/min (70-130); Calcium 8.7 mg/dL (7.8-10.44); Carbon Dioxide 20 mmol/L (22-29); Chloride 107 mmol/L (98-107); Estimated GFR-MDRD Greater than 90; Glucose 125 mg/dL (70-105); Potassium 3.8 mmol/L (3.5-5.1); Sodium 134 mmol/L (136-145)
[2018-11-24] MEDS: Famotidine/PF 20 mg/2ml Vial SLOW IVP SCH ×2 (08:17→20:37)
[2018-11-24] MEDS: Famotidine 20 MG TAB PO SCH ×2 (08:22→20:32)
--- NOTE | 2018-11-24 13:06 | PDOC.GSPN ---
Surgery Progress Note: Subj - Subjective Patient reports: pain well controlled, tolerating liquids well, voiding w/o difficulty Surgery Progress Note: Obj - Vital signs Vital signs: Vital Signs - Most Recent Temp Pulse Resp BP Pulse Ox 98.2 F 77 16 120/74 94 L 11/24/18 11:24 11/24/18 11:24 11/24/18 11:24 11/24/18 11:24 11/24/18 11:24 - Physical Exam General: no distress Respiratory: clear to auscultation Abdomen: soft, appropriately tender Wound: dressing clean,dry,intact Surgery Progress Note: Results - Labs Result Diagrams: 11/24/18 05:07 11/24/18 05:07 Lab results: Laboratory Results - last 24 hr 11/24/18 11/24/18 05:07 05:07 WBC 9.4 RBC 3.41 L Hgb 12.3 Hct 35.8 L MCV 105.0 H MCH 36.2 H MCHC 34.4 RDW 12.6 Plt Count 148 MPV 7.6 Neutrophils % 86.0 H Lymphocytes % 6.6 L Monocytes % 7.1 Eosinophils % 0.2 Basophils % 0.1 Neutrophils # 8.0 H Lymphocytes # 0.6 L Monocytes # 0.7 H Eosinophils # 0.0 Basophils # 0.0 Sodium 134 L Potassium 3.8 Chloride 107 Carbon Dioxide 20 L Anion Gap 11 BUN 9 L Creatinine 0.64 Estimated GFR (MDRD) Greater than 90 Glucose 125 H Calcium 8.7 Surgery Progress Note: A/P - Problem (1) Rectal cancer Current Visit: No Code(s): C20 - MALIGNANT NEOPLASM OF RECTUM Status: Acute - Plan Plan: POD 1 ileostomy reversal -full liquids -home tomorrow -tramadol sent over to her pharmacy
[2018-11-24] MEDS: Ondansetron PF 4 MG/2 ML Vial IVP PRN (16:01)
[2018-11-24] MEDS: Citalopram 10 MG TAB PO SCH (20:32)
[2018-11-25] MEDS: Famotidine 20 MG TAB PO SCH (08:17)
[2018-11-25] MEDS: Famotidine/PF 20 mg/2ml Vial SLOW IVP SCH (08:18)
[2018-11-25 12:01] VITALS: BP 129/83; TEMP 98.4
== END 2018-11-25 12:39 | disposition home or self-care (01) | DRG 330 ==
LOC: SURG A 11-23 05:50
PROVIDERS: ADMIT Surgery; ATTEND Surgery
PROC: 0DBB0ZZ Excision of Ileum, Open Approach (ICD-10-PCS; principal; 2018-11-23)
DX: K94.13 Enterostomy malfunction (principal); C20 Malignant neoplasm of rectum
CPT/HCPCS: 36415; 80048; 85025; 88304; J0131; J0694; J1100; J1885; J2001; J2250; J2405; J2704; J2765; J3010; J3490; S0028

== ENCOUNTER 2019-07-11 11:10 | Inpatient (IN) | payer BC ==
[2019-07-11] MEDS ORDERED: traMADol HCl 50 MG TAB ONE (12:08)
[2019-07-11] MEDS ORDERED: Acetaminophen 500 MG TAB ONE (12:09)
[2019-07-11] MEDS ORDERED: Morphine 4 MG/ML VIAL ONE (12:13)
[2019-07-11] MEDS ORDERED: Ketorolac Tromethamine 30 MG/ML VIAL ONE ×3 (12:13→19:35)
[2019-07-11] MEDS ORDERED: PROPOFOL 200 MG/20 ML VIAL ONE (12:26)
[2019-07-11] MEDS ORDERED: Rocuronium Bromide 10 MG/ML (10ML VIAL) ONE (12:26)
[2019-07-11] MEDS ORDERED: Ondansetron PF 4 MG/2 ML Vial ONE (12:26)
[2019-07-11] MEDS ORDERED: diphenhydrAMINE 50 MG/ML VIAL ONE (12:26)
[2019-07-11] MEDS ORDERED: Dexamethasone 20 MG/5 ML VIAL ONE (12:26)
[2019-07-11] MEDS ORDERED: ePHEDrine/0.9% NaCl/PF SYRINGE 50 mg/10 ml ONE (12:26)
[2019-07-11 12:30] LABS: #Eosinphils 0.2 thou/uL (0.0-0.7); #Lymphocytes 1.2 thou/uL (1.20-3.40); #Monocytes 0.7 thou/uL (0.11-0.59); #Neutrophils 4.8 thou/uL (1.40-6.50); %Basophils 0.1 % (0.0-1.0); %Eosinophils 3.4 % (0.0-10.0); %Lymphocytes 17.2 % (21.0-51.0); %Monocytes 9.9 % (0.0-10.0); %Neutrophils 69.4 % (42.0-75.0); Hemoglobin 15.1 g/dL (12.0-16.0); Mean Corpuscular Hemoglobin 32.9 pg (27.0-31.0); Mean Corpuscular Volume 96.7 fL (78.0-98.0); Mean Platelet Volume 6.8 fL (7.4-10.4); Platelet Count 159 thou/uL (130-400); RBC Distribution Width 11.7 % (11.5-14.5)
[2019-07-11 12:42] LABS: INR-International Normal Ratio 0.9; Prothrombin Time 12.2 SEC (12.0-14.7)
[2019-07-11 12:43] LABS: PTT 27.3 SEC (22.9-36.1)
[2019-07-11 12:51] LABS: ALT (SGPT) 19 U/L (8-55); AST (SGOT) 21 U/L (5-34); Albumin 4.1 g/dL (3.5-5.0); Alkaline Phosphatase 89 U/L (40-110); Anion Gap 11 mmol/L (10-20); BUN (Urea Nitrogen) 5 mg/dL (9.8-20.1); Bilirubin, Total 0.4 mg/dL (0.2-1.2); Calc. Creatinine Clearance 0 mL/min (70-130); Calcium 9.3 mg/dL (7.8-10.44); Carbon Dioxide 28 mmol/L (22-29); Chloride 103 mmol/L (98-107); Estimated GFR-MDRD 68; Globulin 2.9 g/dL (2.4-3.5); Glucose 98 mg/dL (70-105); Potassium 4.2 mmol/L (3.5-5.1); Sodium 138 mmol/L (136-145)
[2019-07-11] MEDS ORDERED: Dextrose 5% in Water 1,000 ML IV PRN (13:09)
[2019-07-11] MEDS ORDERED: Ondansetron ODT 4 MG TAB PO PRN (13:09)
[2019-07-11] MEDS ORDERED: Ondansetron PF 4 MG/2 ML Vial IVP PRN (13:09)
[2019-07-11] MEDS ORDERED: Morphine 2 MG/ML SYRINGE SLOW IVP PRN (13:09)
[2019-07-11] MEDS ORDERED: Morphine 4 MG/ML VIAL SLOW IVP PRN ×2 (13:09→19:43)
[2019-07-11] MEDS ORDERED: Dextrose 50% Abboject 50 ML SYRINGE SLOW IVP PRN (13:09)
[2019-07-11] MEDS ORDERED: traMADol HCl 50 MG TAB PO PRN ×3 (13:12→19:44)
[2019-07-11] MEDS ORDERED: Cyclobenzaprine 10 MG TAB PO PRN (13:15)
[2019-07-11] MEDS ORDERED: Sodium Chloride 0.9% 1,000 ML IV SCH (13:15)
--- NOTE | 2019-07-11 13:29 | RAD ---
XR Chest 1 View HISTORY: Preoperative evaluation for hip fracture FINDINGS: The heart size is normal. The aorta is tortuous. The lungs are well expanded without focal areas of consolidation, pneumothorax or pleural effusions. IMPRESSION: No radiographic evidence of acute cardiopulmonary process.
--- NOTE | 2019-07-11 13:35 | RAD ---
LEFT HIP 2 VIEWS: HISTORY: Hip pain status post fall. FINDINGS: There is a subcapital fracture of the left femoral neck noted. Joint space is well preserved. IMPRESSION: Subcapital left femoral neck fracture. POS: TPC
[2019-07-11] MEDS ORDERED: Fentanyl 100 MCG/2 ML VIAL ONE ×6 (13:46→21:09)
--- NOTE | 2019-07-11 14:31 | HP ---
ATTENDING PHYSICIAN: Dr. More. CONSULTS: Orthopedic Surgery, Dr. Del Castillo. ONCOLOGIST: Adrian Neal MD The patient does not have a primary care physician. HISTORY OF PRESENT ILLNESS: This is a 59-year-old lady who presented to the emergency room with left hip pain after a ground level fall. The patient has a history of rectal cancer in which she was diagnosed in December 2017 and is currently in remission. 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 The patient states that her hand neuropathy has improved some, but her feet neuropathy is the same. The patient states this may be why she fell today. The patient denied any dizziness, chest pain, or shortness of breath prior to falling. The patient denies hitting her head or any loss of consciousness. The patient was not able to bear any weight on her left hip after falling. PAST MEDICAL HISTORY: Rectal cancer, neuropathy, bilateral feet and bilateral hands, bowel incontinence, status post bowel resection. PAST SURGICAL HISTORY: Tubal ligation, rectal resection, ileostomy reversal, MediPort removed right chest. SOCIAL HISTORY: The patient denies alcohol use. The patient currently smokes cigarettes half a pack per day, the patient used to smoke 2 packs a day since she was 18 years old. Denies any illicit drug use. ALLERGIES: CHLORAPREP, CODEINE, METRONIDAZOLE. CURRENT MEDICATIONS: 1. Gabapentin 600 mg b.i.d. 2. Celexa 10 mg at bedtime. REVIEW OF SYSTEMS: A 10-point review of systems is negative unless otherwise indicated in the above HPI. PHYSICAL EXAMINATION: VITAL SIGNS: Pulse 67, blood pressure 109/68, respirations 16, SpO2 of 97% on room air, temperature 97.9. GENERAL: Middle aged female, well-appearing, no acute distress. HEENT: Normocephalic, atraumatic, pupils are equal bilateral, extraocular muscles intact, normal mouth exam. Mucous membranes moist, NECK: Normal range of motion. No cervical tenderness. Trachea midline. RESPIRATORY: Equal chest rise and fall, no respiratory distress, bilateral breath sounds clear without any wheezing, rales or rhonchi. CARDIOVASCULAR: Regular rate, regular rhythm. Heart sounds are normal. ABDOMEN: Soft, nontender, nondistended, no peritoneal signs. MUSCULOSKELETAL: Left hip tenderness with palpation. EXTREMITIES: Moves all extremities, distal pulses intact, decreased sensation, chronic to bilateral lower extremities. NEUROLOGIC: GCS 15, no focal deficits. LABORATORY DATA: WBC 7.0, RBC 4.60, hemoglobin 15.1, hematocrit 44.4, platelets 159. PT 12.2, INR 0.9 APTT 27.3. Sodium 138, potassium 4.2, chloride 103, BUN 5, creatinine 0.86, estimated GFR 68. Glucose 98, calcium 9.3. Total bilirubin 0.4 , AST 21, ALT 19, alkaline phos 89. DIAGNOSTIC DATA: 1. A 12-lead EKG, sinus rhythm, rate 75, ST segments normal, T-waves normal. 2. Left hip x-ray, impression, subcapital fracture of the left femoral neck, joint space is well preserved. 3. Chest x-ray, impression, no evidence of acute cardiopulmonary process. IMPRESSION: 1. Status post ground level fall. 2. Left subcapital fracture of the left femoral neck. 3. Acute traumatic pain. 4. History of rectal cancer, in remission, neuropathy to hands and feet secondary to chemotherapy. PLAN: The patient will be n.p.o. with plans for Orthopedic Surgery to take her to the OR later today for repair of her left hip. The patient will be placed on IV maintenance fluids normal saline at 100 an hour. The patient will be placed on pain regimen. The patient will have p.r.n. nebs as the patient has a long history of smoking. We will continue patient's home gabapentin and Celexa. We will have the patient work with physical and occupational therapy postop. The patient wishes to be discharged home if possible and not have to go to rehab. I will place a nicotine patch. The plan was discussed with the patient and family who agree. The plan will be discussed with the attending after this dictation. Job ID: [id number] MTDD
[2019-07-11 14:45] LABS: Magnesium 1.9 mg/dL (1.6-2.6); Phosphorus 3.9 mg/dL (2.3-4.7)
[2019-07-11] MEDS ORDERED: traMADol HCl 50 MG TAB PO SCH (15:00)
[2019-07-11] MEDS ORDERED: Nicotine 14 MG PATCH TD SCH (15:00)
[2019-07-11] MEDS ORDERED: Midazolam HCl 2 mg/2 ml Vial ONE (18:03)
[2019-07-11] MEDS ORDERED: SUGAMMADEX SODIUM 500 MG/5 ML VIAL ONE (19:26)
[2019-07-11] MEDS ORDERED: Fat Emulsion 0 ML ONE (19:35)
[2019-07-11] MEDS ORDERED: Promethazine HCl 25 MG/ML VIAL IM PRN (19:42)
[2019-07-11] MEDS ORDERED: Ondansetron HCl/PF 4 MG/2 ML Vial IVP PRN (19:42)
[2019-07-11] MEDS ORDERED: Meperidine HCl/PF 25 MG/ML VIAL SLOW IVP PRN (19:42)
[2019-07-11] MEDS ORDERED: HYDROmorphone 2 MG/ML VIAL SLOW IVP PRN (19:42)
--- NOTE | 2019-07-11 20:05 | RAD ---
LEFT HIP: 07/11/19 Three fluoroscopic views presented from OR. INDICATIONS: Left hip open reduction internal fixation. FINDINGS/IMPRESSION: These views show three pins transfixing the left femoral neck. POS: OFF
[2019-07-11] MEDS ORDERED: Famotidine/PF 20 mg/2ml Vial SLOW IVP SCH (21:00)
[2019-07-11] MEDS ORDERED: Gabapentin 100 MG CAP PO SCH (21:00)
--- NOTE | 2019-07-11 21:37 | OP ---
DATE OF PROCEDURE: 07/11/2019 PROCEDURE PERFORMED: Left femoral neck fracture percutaneous screw fixation. PREOPERATIVE DIAGNOSIS: Left femoral neck fracture. POSTOPERATIVE DIAGNOSIS: Left femoral neck fracture. COMPLICATIONS: None. ESTIMATED BLOOD LOSS: Minimal. IMPLANTS: Synthes 7.3 mm screws x3. ANESTHESIA: General. INDICATIONS FOR PROCEDURE: Ms. Browning is a 59-year-old female, who fell and fractured her femoral neck. She sustained an injury that was minimal to percutaneous screw fixation. We have reviewed risk and benefits. She wants to proceed. Goal is to mobilize the patient and provide pain relief, as well as stabilize the fracture. She is aware of risk of avascular necrosis, displacement, nonunion, and other complications, which may result in the need for total hip arthroplasty. DESCRIPTION OF PROCEDURE: Ms. Browning was identified in the preoperative holding area. Her correct extremities were marked. She was carried to the operating room. She was positioned supine. General anesthesia was induced. A multidisciplinary time-out was performed. The left lower extremity was prepped and draped in sterile fashion. We began the procedure by intraoperative evaluation of the hip. We used the fluoroscopy device to assess an appropriate start point. We made a small incision. We then passed a guidewire in an inferior position on the femoral neck. We then placed two additional guidewires to form an inverted triangle pattern. The guidewires were measured and then overdrilled. We then placed three 7.3 mm cannulated screws fixing the fracture affectively. At this point, we thoroughly irrigated and closed with 2-0 Vicryl suture, and omid for the skin. A sterile dressing was applied. The patient was taken to the recovery room in good condition without complication. Job ID: [id number]
[2019-07-11] MEDS: Senokot S 8.6-50 MG TAB PO SCH (22:33)
[2019-07-11] MEDS: Acetaminophen 500 MG TAB PO SCH ×2 (22:33→22:34)
[2019-07-11 23:13] VITALS: BMI 21.7
--- NOTE | 2019-07-12 00:33 | PRG ---
DATE OF SERVICE: 07/11/2019 SUBJECTIVE: The patient was seen this evening, sitting up in bed. She had just had a meal. She is postoperative day 0 after fixation of her left hip femoral neck fracture. She reports her pain is well controlled. The patient with systolic blood pressure in the 90s. She reports she usually runs low. She denies any symptoms and reports she feels it is time to void. OBJECTIVE: VITAL SIGNS: The patient is afebrile with blood pressure of 90/58. She is not tachycardic and she is breathing comfortably on 2 L nasal cannula with SpO2 greater than 92%. GENERAL: Well-appearing middle-aged female, sitting up in bed with no signs of acute distress. PULMONARY: Equal chest rise and fall. No signs of acute respiratory distress. CARDIAC: Regular rate and rhythm. GI: Abdomen is soft, nontender, nondistended. EXTREMITIES: 2+ pulses in all extremities. Gross motor and sensation intact. No significant swelling noted. NEUROLOGIC: GCS is 15. ASSESSMENT: 1. Status post ground level fall. 2. Left femoral neck fracture, status post repair. 3. History of rectal cancer, now in remission, peripheral neuropathy of bilateral upper and lower extremities. PLAN: The patient will start working with Physical and Occupational Therapy tomorrow. She would like to be discharged home. We will reassess her ability to work with therapy and if she needs placement at a rehab facility, we will order it at that time. She will continue a regular diet. We will restart the patient's home Celexa and extended release gabapentin. We will discontinue her home gabapentin. We will closely monitor her hemodynamics as well as she is normally hypotensive. Job ID: [id number]
[2019-07-12] MEDS ORDERED: Sodium Chloride 0.9% 500 ML IV SCH (02:00)
--- NOTE | 2019-07-12 02:00 | CON ---
DATE OF CONSULTATION: 07/11/2019 This is Buzz Wiggins PA-C dictating a report for Guillaume Del Castillo MD. REQUESTING PHYSICIAN: Dr. Jamil More. CONSULTING PHYSICIAN: Guillaume Del Castillo MD REASON FOR CONSULTATION: Left hip pain secondary to subcapital femoral neck fracture. BRIEF CLINICAL HISTORY: Minna is a 59-year-old female who sustained a ground level fall earlier today, resulting in a left hip pain. She was brought to [facility] Emergency Room via EMS, where plain radiographs demonstrated an impacted subcapital femoral neck fracture on the left. She has been admitted by the Trauma Team and our service has been consulted for definitive management of this problem. PAST MEDICAL HISTORY: Significant for colon cancer requiring resection and chronic tobacco use. PAST SURGICAL HISTORY: Partial small bowel resection with reanastomosis. PHYSICAL EXAMINATION: GENERAL: This is a tall, well-nourished, well-developed female, appearing stated age, in no apparent distress or discomfort. She is alert and oriented to person, place, time, and situation. Responsive and appropriate with examiner. VITAL SIGNS: Stable. HEAD: Normocephalic, atraumatic. Pupils equal, round, reactive to light. Oropharynx is benign. CHEST: Clear to auscultation. HEART: Regular rate and rhythm. ABDOMEN: Normal. Soft, nontender. EXTREMITIES: There is no shortening or malrotation of the left lower extremity. Range of motion hip is provocative and concordant for pain as is palpation of the groin. She is neurovascularly intact in the left lower extremity. No swelling at the knee. There are no breaks in the skin. IMAGING STUDIES: Two-view left hip demonstrates a valgus impacted left subcapital femoral neck fracture. IMPRESSION: Left hip valgus impacted subcapital femoral neck fracture. PLAN: 1. The risks, benefits, options, alternatives, and rationale for proceeding with closed reduction with percutaneous cannulated screw fixation have been explained in great detail with the patient and she is ready to proceed. All questions were answered. No guarantee of outcome stated or implied. 2. N.p.o. 3. Please see orders. Job ID: [id number]
[2019-07-12] MEDS: Acetaminophen 500 MG TAB PO SCH ×2 (02:25→08:43)
[2019-07-12 02:26] LABS: #Lymphocytes 0.9 thou/uL (1.20-3.40); #Monocytes 0.5 thou/uL (0.11-0.59); #Neutrophils 4.8 thou/uL (1.40-6.50); %Basophils 0.3 % (0.0-1.0); %Eosinophils 0.2 % (0.0-10.0); %Lymphocytes 14.1 % (21.0-51.0); %Monocytes 7.3 % (0.0-10.0); %Neutrophils 78.1 % (42.0-75.0); Hemoglobin 13.5 g/dL (12.0-16.0); Mean Corpuscular HGB CONC 33.4 g/dL (32.0-36.0); Mean Corpuscular Hemoglobin 32.5 pg (27.0-31.0); Mean Corpuscular Volume 97.1 fL (78.0-98.0); Mean Platelet Volume 7.1 fL (7.4-10.4); Platelet Count 141 thou/uL (130-400); RBC Distribution Width 11.6 % (11.5-14.5); Red Blood Cell (RBC) Count 4.17 mill/uL (4.20-5.40); White Blood Cell (WBC) Count 6.2 thou/uL (4.8-10.8)
[2019-07-12] MEDS: CEFAZOLIN 2 GM in Premix Bag 1 BAG IVPB SCH ×2 (02:37→11:53)
[2019-07-12 02:53] LABS: Anion Gap 10 mmol/L (10-20); BUN (Urea Nitrogen) 9 mg/dL (9.8-20.1); Calc. Creatinine Clearance 68 mL/min (70-130); Calcium 8.8 mg/dL (7.8-10.44); Carbon Dioxide 28 mmol/L (22-29); Chloride 104 mmol/L (98-107); Estimated GFR-MDRD 64; Glucose 143 mg/dL (70-105); Magnesium 1.8 mg/dL (1.6-2.6); Phosphorus 3.7 mg/dL (2.3-4.7); Potassium 4.2 mmol/L (3.5-5.1); Sodium 138 mmol/L (136-145)
[2019-07-12] MEDS: traMADol HCl 50 MG TAB PO PRN ×2 (04:24→11:53)
[2019-07-12] MEDS ORDERED: Hydrocortisone Sod Succ/PF 100 mg/2 ml Vial IVP SCH ×3 (04:30→12:00)
[2019-07-12] MEDS ORDERED: Ibuprofen 800 MG TAB PO SCH (06:00)
[2019-07-12] MEDS: Senokot S 8.6-50 MG TAB PO SCH (08:43)
[2019-07-12] MEDS ORDERED: Polyethylene Glycol 3350 17 GM Packet PO SCH (09:00)
[2019-07-12] MEDS ORDERED: Gabapentin 300 MG CAP PO SCH (09:00)
[2019-07-12] MEDS ORDERED: Aspirin 81 mg Enteric Coated Tablet PO SCH (09:00)
[2019-07-12] MEDS ORDERED: Enoxaparin Sodium 40 MG/0.4 ML SYRINGE SC SCH ×2 (12:00→21:00)
[2019-07-12 12:06] VITALS: BP 98/65; TEMP 97.9
[2019-07-12] MEDS ORDERED: Citalopram 10 MG TAB PO SCH (21:00)
--- NOTE | 2019-07-13 04:40 | DIS ---
DATE OF ADMISSION: 07/11/2019 DATE OF DISCHARGE: 07/12/2019 This is Georgiana Zarate NP dictating a report for Jamil More DO. ATTENDING ADMITTING: Jamil More DO DISCHARGE ATTENDING: Jamil More DO CONSULTS: Orthopedic Surgery, Dr. Del Castillo. PROCEDURES: 1. On 07/11/2019, 12-lead EKG; sinus rhythm with rate of 75, normal ST and T-wave, no abnormalities. 2. On 07/11/2019, left hip x-ray, impression: Subcapital fracture of the left femoral neck, joint space is well preserved. 3. Chest x-ray, impression: No evidence of acute cardiopulmonary process. 4. On 07/11/2019, left femoral neck fracture percutaneous screw fixation by Dr. Del Castillo. PRIMARY DIAGNOSES: 1. Status post ground level fall. 2. Left femoral neck fracture status post repair. 3. Neuropathy to hands and feet. SECONDARY DIAGNOSES: Rectal cancer, in remission, chemotherapy-induced neuropathy. DISCHARGE MEDICATIONS: 1. Lovenox 40 mg subcu daily for 14 days. 2. Tramadol 50 mg p.o. q.6 hours as needed for pain. 3. Celexa 10 mg p.o. at bedtime. 4. Gabapentin 600 mg p.o. b.i.d. 5. Ibuprofen 800 mg q.8 hours as needed for pain. HISTORY OF PRESENT ILLNESS AND HOSPITAL COURSE: This is a 59-year-old lady who presented to the emergency room with left hip pain after a ground level fall at home. The patient states that she has chemotherapy-induced neuropathy in her hands and feet, which likely caused her to trip and fall. The patient denied any loss of consciousness or chest pain or shortness of breath prior to falling. The patient states she tripped and fell. The patient was not able to bear weight on her left leg after falling. The patient was evaluated in the emergency room and found to have a left subcapital fracture of the left femoral neck. Trauma Service was asked to admit the patient. The patient's pain was well controlled preop and postop. The patient was able to work well with physical therapy postop. The patient felt safe ambulating at home and reports having her there and plenty of support. Physical Therapy also felt comfortable with the patient ambulating and going home. Orthopedic Surgery also evaluated the patient and was okay for patient to be discharged home. On the day of discharge, the patient was evaluated by Dr. More. The patient had no complaints. The patient's vital signs were stable and her exam was unremarkable including cardiopulmonary and GI exam. The patient was deemed stable for discharge. DISPOSITION: Stable. DISCHARGE INSTRUCTIONS: 1. Location: Home. 2. Diet: Regular diet. 3. Activity: Orthopedic limitations, partial weightbearing to the left lower extremity 50%, the patient is to use a walker. 4. Followup: Follow up with Dr. Del Castillo in 10 days. There is no need to follow up with Dr. More, Trauma Services. Please call for any questions. Job ID: [id number]
== END 2019-07-12 12:46 | disposition home or self-care (01) | DRG 482 ==
LOC: ERS 11:10 → SDC/OP 20:57 → SURG B 21:59
PROVIDERS: ADMIT Surgery; ATTEND Surgery
PROC: 0QH734Z Insertion of Internal Fixation Device into Left Upper Femur, Percutaneous Approach (ICD-10-PCS; principal; 2019-07-11)
DX: S72.012A Unspecified intracapsular fracture of left femur, initial encounter for closed fracture (principal); G62.9 Polyneuropathy, unspecified; F17.210 Nicotine dependence, cigarettes, uncomplicated; R40.2413 Glasgow coma scale score 13-15, at hospital admission; G89.11 Acute pain due to trauma; W18.39XA Other fall on same level, initial encounter; Y93.89 Activity, other specified; Z98.51 Tubal ligation status; Z90.49 Acquired absence of other specified parts of digestive tract; Z88.5 Allergy status to narcotic agent; Z88.8 Allergy status to other drugs, medicaments and biological substances; Z85.048 Personal history of other malignant neoplasm of rectum, rectosigmoid junction, and anus; Y92.89 Other specified places as the place of occurrence of the external cause
CPT/HCPCS: 36415; 71045; 76000; 80048; 80053; 82533; 83735; 84100; 85025; 85610; 85730; 86850; 86900; 86901; 93005; 94760; 96361; 96374; 96375; C1713; C1769; J0131; J0690; J1100; J1200; J1650; J1720; J1885; J2250; J2270; J2405; J2704; J3010

== ENCOUNTER 2019-08-22 09:47 | Outpatient (CLI) | payer BC ==
--- NOTE | 2019-08-22 11:03 | MRI ---
EXAM: MRI of the brain and orbits without and with contrast HISTORY: Left eye peripheral vision loss COMPARISON: None TECHNIQUE: Multiplanar multisequence MR images were obtained of the brain and orbits without and with IV contrast. FINDINGS: The brain demonstrates normal signal intensity on all obtained sequences. No restricted diffusion. No abnormal enhancement. No hydronephrosis. No extra-axial fluid collection or intracranial hemorrhage. Thin cuts through the internal auditory canals shows a normal appearance of the 7th and 8th nerves. The cochlea and semicircular canals are symmetric. The expected flow voids are present. Corpus callosum, pituitary, and craniocervical junction are within normal limits. Thin cuts through the orbits shows a normal appearance of the optic nerves. The extraocular muscles are symmetric without focal abnormality. No retrobulbar mass is seen. The globes are symmetric in size without significant abnormality. The calvarium and overlying soft tissues are unremarkable. The paranasal sinuses and mastoid air cells are well aerated. IMPRESSION: No significant intracranial or orbital abnormality
[2019-08-22] MEDS ORDERED: Magnevist 469MG/ML 20 ML VIAL ONE (13:54)
== END 2019-08-22 09:48 | disposition home or self-care (01) ==
LOC: MRI 09:47
PROVIDERS: ATTEND Ophthalmology
DX: H47.293 Other optic atrophy, bilateral (principal)
CPT/HCPCS: 70553; A9579

== ENCOUNTER 2020-04-11 12:50 | Outpatient (CLI) | payer BC ==
--- NOTE | 2020-04-11 13:37 | BD ---
DEXA bone density examination HISTORY: 59-year-old postmenopausal female. COMPARISON: None FINDINGS: L1--bone mineral density 0.704 g/sq cm; T score -2.6 L2--bone mineral density 0.743 g/sq cm; T score -2.6 L3--bone mineral density 0.786 g/sq cm; T score -2.7 L4--bone mineral density 0.813 g/sq cm; T score -2.3 Total L1-L4--bone mineral density 0.763 g/sq cm; T score -2.6 Right femoral neck--bone mineral density0.445 g/sq cm; T score -3.6 Total proximal right femur--bone mineral density 0.58 g/sq cm ; T score -3.0 IMPRESSION: 1. Marked osteopenia right femoral neck indicating an 8 fold increased risk for fracture. 2. Moderate osteopenia lumbar spine indicating a 4 fold increased risk for fracture. 3. This patient meets the WHO criteria for osteoporosis.
--- NOTE | 2020-04-11 14:26 | MMO ---
Bilateral MAMMO Bilat Screen [facility]I. CLINICAL HISTORY: Patient is 59 years old and is seen for screening. The patient has no family history of breast cancer. The patient has a history of other cancer. VIEWS: The views performed were: bilateral craniocaudal with tomosynthesis and bilateral mediolateral oblique with tomosynthesis. FILMS COMPARED: The present examination has been compared to prior imaging studies performed at [facility] on 08/29/2017 and 11/16/2018. This study has been interpreted with the assistance of computer-aided detection. MAMMOGRAM FINDINGS: The breasts are heterogeneously dense, which could obscure a lesion on mammography. Evidence of new distortion upper outer left breast. Recommend diagnostic exam. In the right breast, there are no suspicious masses, calcifications or areas of architectural distortion. IMPRESSION: FINDING IN THE LEFT BREAST REQUIRES ADDITIONAL EVALUATION. ADDITIONAL IMAGING. THE RESULTS OF THIS EXAM WERE SENT TO THE PATIENT. ACR BI-RADS Category 0 - Incomplete: Need additional imaging evaluation. [facility] will notify the patient of the need for additional imaging services. MAMMOGRAPHY NOTE: 1. A negative mammogram report should not delay a biopsy if a dominant of clinically suspicious mass is present. 2. Approximately 10% to 15% of breast cancers are not detected by mammography. 3. Adenosis and dense breasts may obscure an underlying neoplasm. Reported by: SATINDER BEARDEN MD Electonically Signed: [id number]
== END 2020-04-11 12:51 | disposition home or self-care (01) ==
LOC: BICMAMMO 12:50
PROVIDERS: ATTEND Family Medicine
DX: Z12.31 Encounter for screening mammogram for malignant neoplasm of breast (principal); M81.0 Age-related osteoporosis without current pathological fracture; M85.89 Other specified disorders of bone density and structure, multiple sites; Z85.89 Personal history of malignant neoplasm of other organs and systems
CPT/HCPCS: 77063; 77067; 77080

== ENCOUNTER 2020-04-16 12:53 | Outpatient (CLI) | payer BC ==
--- NOTE | 2020-04-16 13:24 | MMO ---
Left Breast MAMMO Unilat Diag [facility]DI LT+SANTI. CLINICAL HISTORY: Patient is 59 years old and is seen for diagnostic exam. The patient has no family history of breast cancer. The patient has a history of other cancer. VIEWS: The views performed were: left craniocaudal with tomosynthesis; left mediolateral oblique with tomosynthesis; and left mediolateral with tomosynthesis. FILMS COMPARED: The present examination has been compared to prior imaging studies performed at [facility] on 08/29/2017, 11/16/2018 and 04/11/2020. This study has been interpreted with the assistance of computer-aided detection. MAMMOGRAM FINDINGS: The breast is heterogeneously dense, which could obscure a lesion on mammography. Additional views were performed. The previously seen abnormality is not definitely seen on the current study. There are no suspicious masses, suspicious calcifications, or new areas of architectural distortion. IMPRESSION: THERE IS NO MAMMOGRAPHIC EVIDENCE OF MALIGNANCY. A ROUTINE FOLLOW-UP MAMMOGRAM IN 1 YEAR IS RECOMMENDED. THE RESULTS OF THIS EXAM WERE SENT TO THE PATIENT. ACR BI-RADS Category 2 - Benign finding MAMMOGRAPHY NOTE: 1. A negative mammogram report should not delay a biopsy if a dominant of clinically suspicious mass is present. 2. Approximately 10% to 15% of breast cancers are not detected by mammography. 3. Adenosis and dense breasts may obscure an underlying neoplasm. Reported by: LOU HERNANDEZ MD Electonically Signed: [id number]
== END 2020-04-16 12:54 | disposition home or self-care (01) ==
LOC: BICMAMMO 12:53
PROVIDERS: ATTEND Family Medicine
DX: Q83.9 Congenital malformation of breast, unspecified (principal)
CPT/HCPCS: G0279

== ENCOUNTER 2020-12-15 14:07 | Outpatient (CLI) | payer BC | END 2020-12-15 14:08 | disposition home or self-care (01) | LOC: BICRAD 14:07 | PROVIDERS: ATTEND Internal Medicine Rheumatology | DX: M54.2 Cervicalgia (principal); M47.812 Spondylosis without myelopathy or radiculopathy, cervical region; M43.12 Spondylolisthesis, cervical region | CPT/HCPCS: 72050 ==

== ENCOUNTER 2021-04-28 08:41 | Outpatient (CLI) | payer BC | END 2021-04-28 08:42 | disposition home or self-care (01) | LOC: BICMAMMO 08:41 | PROVIDERS: ATTEND Neurological Surgery | DX: Z12.31 Encounter for screening mammogram for malignant neoplasm of breast (principal); M47.22 Other spondylosis with radiculopathy, cervical region; M48.02 Spinal stenosis, cervical region; Z85.89 Personal history of malignant neoplasm of other organs and systems | CPT/HCPCS: 72141; 77063; 77067 ==

== ENCOUNTER 2021-06-01 08:41 | Outpatient (CLI) | payer BC | END 2021-06-01 08:42 | disposition home or self-care (01) | LOC: BICMAMMO 08:41 | PROVIDERS: ATTEND Internal Medicine Rheumatology | DX: M81.0 Age-related osteoporosis without current pathological fracture (principal) | CPT/HCPCS: 77080 ==

== ENCOUNTER 2021-06-09 07:32 | Outpatient (CLI) | payer BC ==
[2021-06-09] MEDS ORDERED: Iopamidol 370 76% 100 ML VIAL ONE (11:28)
== END 2021-06-09 07:33 | disposition home or self-care (01) ==
LOC: BICCT 07:32
PROVIDERS: ATTEND Internal Medicine Hematology & Oncology
DX: C20 Malignant neoplasm of rectum (principal); R97.0 Elevated carcinoembryonic antigen [CEA]
CPT/HCPCS: 71260; 74177

== ENCOUNTER 2021-06-25 07:24 | Outpatient (CLI) | payer BC | END 2021-06-25 07:25 | disposition home or self-care (01) | LOC: PET 07:24 | PROVIDERS: ATTEND Internal Medicine Hematology & Oncology | DX: C20 Malignant neoplasm of rectum (principal); R19.09 Other intra-abdominal and pelvic swelling, mass and lump; C77.5 Secondary and unspecified malignant neoplasm of intrapelvic lymph nodes; N13.30 Unspecified hydronephrosis | CPT/HCPCS: 78815; A9552 ==

== ENCOUNTER 2021-07-06 10:13 | Outpatient (CLI) | payer BC ==
[2021-07-06 11:49] LABS: PTT 25.9 sec (22.0-33.0); Prothrombin Time 10.6 sec (9.5-12.1)
[2021-07-06 11:56] LABS: Hemoglobin 13.2 g/dL (12.0-15.5); Mean Corpuscular HGB CONC 32.3 g/dL (32.0-36.0); Mean Corpuscular Hemoglobin 30.6 pg (27.0-33.0); Mean Corpuscular Volume 94.7 fl (81.6-98.3); Mean Platelet Volume 10.2 fl (7.4-10.4); Platelet Count 198 10x3/uL (150-450); RBC Distribution Width 12.9 % (11.5-14.5); Red Blood Cell (RBC) Count 4.32 10x6/uL (3.90-5.03); White Blood Cell (WBC) Count 6.3 10x3/uL (3.5-10.5)
[2021-07-06 12:10] LABS: Anion Gap 12 mmol/L (10-20); BUN (Urea Nitrogen) 11 mg/dL (9.8-20.1); Calc. Creatinine Clearance 0 mL/min (70-130); Calcium 9.1 mg/dL (7.8-10.44); Carbon Dioxide 27 mmol/L (22-29); Chloride 106 mmol/L (98-107); Glucose 82 mg/dL (70-105); Potassium 4.3 mmol/L (3.5-5.1); Sodium 141 mmol/L (136-145)
[2021-07-06 17:46] LABS: SARS-CoV-2 PCR by NAA Not Detected (NotDetected)
== END 2021-07-06 10:14 | disposition home or self-care (01) ==
LOC: LABBT 10:13
DX: Z01.818 Encounter for other preprocedural examination (principal); Z20.822 Contact with and (suspected) exposure to COVID-19; N13.30 Unspecified hydronephrosis
CPT/HCPCS: 80048; 81001; 85027; 85610; 85730; 87086; 93005; 93010; U0003; U0005

== ENCOUNTER 2021-07-08 08:12 | Day surgery (SDC) | payer BC ==
[2021-07-07 11:39] VITALS: BMI 19.3
[2021-07-08] MEDS ORDERED: Levofloxacin 500 mg/D5W 100 ml Premix Bag ONE (10:44)
[2021-07-08] MEDS ORDERED: Fentanyl 100 MCG/2 ML VIAL ONE ×2 (12:30→13:52)
[2021-07-08] MEDS ORDERED: Phenylephrine 10 MG/ML VIAL ONE (12:49)
[2021-07-08] MEDS ORDERED: ePHEDrine 50 MG/ML VIAL ONE (12:49)
[2021-07-08] MEDS ORDERED: Lidocaine 1% PF 5 ML VIAL ONE (12:49)
[2021-07-08] MEDS ORDERED: Glycopyrrolate 0.2 MG/ML 5 ML SYRINGE ONE (12:49)
[2021-07-08] MEDS ORDERED: Dexamethasone 20 MG/5 ML VIAL ONE (12:49)
[2021-07-08] MEDS ORDERED: PROPOFOL 200 MG/20 ML VIAL ONE (12:49)
[2021-07-08] MEDS ORDERED: Ondansetron PF 4 MG/2 ML Vial ONE (12:49)
[2021-07-08] MEDS ORDERED: Iothalamate Meglumine 60% 50 ML VIAL FS ONE (13:12)
[2021-07-08] MEDS ORDERED: Phenazopyridine HCl 100 MG TAB ONE ×2 (14:20)
[2021-07-08] MEDS ORDERED: Oxybutynin 5 MG TAB ONE (14:21)
== END 2021-07-08 16:15 | disposition home or self-care (01) ==
LOC: SDC 08:12
PROVIDERS: ATTEND Urology
PROC: 0T768DZ Dilation of Right Ureter with Intraluminal Device, Via Natural or Artificial Opening Endoscopic (ICD-10-PCS; principal; 2021-07-08)
PROC: 0T768ZZ Dilation of Right Ureter, Via Natural or Artificial Opening Endoscopic (ICD-10-PCS; principal; 2021-07-08)
DX: R59.0 Localized enlarged lymph nodes (principal); N13.1 Hydronephrosis with ureteral stricture, not elsewhere classified; F17.210 Nicotine dependence, cigarettes, uncomplicated; H40.9 Unspecified glaucoma; M54.12 Radiculopathy, cervical region; N39.41 Urge incontinence; J44.9 Chronic obstructive pulmonary disease, unspecified; M85.80 Other specified disorders of bone density and structure, unspecified site; E78.2 Mixed hyperlipidemia; Z85.048 Personal history of other malignant neoplasm of rectum, rectosigmoid junction, and anus; Z79.899 Other long term (current) drug therapy; Z88.1 Allergy status to other antibiotic agents; Z88.5 Allergy status to narcotic agent; Z90.49 Acquired absence of other specified parts of digestive tract
CPT/HCPCS: 74420; C2617; J1100; J1956; J2370; J2405; J2704; J3010; J3490; Q9961-U8

== ENCOUNTER 2021-07-09 12:33 | Outpatient (CLI) | payer BC ==
[2021-07-10 11:22] LABS: SARS-CoV-2 PCR by NAA Not Detected (NotDetected)
== END 2021-07-09 12:34 | disposition home or self-care (01) ==
LOC: LABBT 12:33
PROVIDERS: ATTEND Internal Medicine Hematology & Oncology
DX: Z01.812 Encounter for preprocedural laboratory examination (principal); Z20.822 Contact with and (suspected) exposure to COVID-19
CPT/HCPCS: U0003; U0005

== ENCOUNTER 2021-07-14 11:58 | Day surgery (SDC) | payer BC ==
[2021-07-13 15:07] VITALS: BMI 19.8
[2021-07-14 12:15] LABS: #Basophils 0.1 thou/uL (0.0-0.2); #Eosinphils 0.3 thou/uL (0.0-0.7); #Lymphocytes 1.6 thou/uL (1.20-3.40); #Monocytes 0.9 thou/uL (0.11-0.59); #Neutrophils 5.5 thou/uL (1.40-6.50); %Basophils 0.6 % (0.0-1.0); %Eosinophils 3.8 % (0.0-10.0); %Monocytes 10.3 % (0.0-10.0); %Neutrophils 66.3 % (42.0-75.0); Hemoglobin 13.3 g/dL (12.0-16.0); Mean Corpuscular HGB CONC 31.8 g/dL (32.0-36.0); Mean Corpuscular Volume 97.4 fL (78.0-98.0); Mean Platelet Volume 6.6 fL (7.4-10.4); Platelet Count 236 thou/uL (130-400); RBC Distribution Width 11.8 % (11.5-14.5); Red Blood Cell (RBC) Count 4.29 mill/uL (4.20-5.40); White Blood Cell (WBC) Count 8.3 thou/uL (4.8-10.8)
[2021-07-14 12:36] LABS: Prothrombin Time 13.1 sec (12.0-14.7)
== END 2021-07-14 14:45 | disposition home or self-care (01) ==
LOC: CT 11:58
PROVIDERS: ATTEND Internal Medicine Hematology & Oncology
PROC: 079H3ZX Drainage of Right Inguinal Lymphatic, Percutaneous Approach, Diagnostic (ICD-10-PCS; principal; 2021-07-14)
DX: I88.1 Chronic lymphadenitis, except mesenteric (principal); J45.909 Unspecified asthma, uncomplicated; E78.00 Pure hypercholesterolemia, unspecified; F17.210 Nicotine dependence, cigarettes, uncomplicated; Z85.048 Personal history of other malignant neoplasm of rectum, rectosigmoid junction, and anus; Z79.899 Other long term (current) drug therapy; Z88.1 Allergy status to other antibiotic agents; Z88.5 Allergy status to narcotic agent; Z90.49 Acquired absence of other specified parts of digestive tract
CPT/HCPCS: 36415; 72192; 77012; 85025; 85610; 88305; 88313; 88333; 88342

== ENCOUNTER 2021-07-28 09:32 | Outpatient (CLI) | payer BC | END 2021-07-28 09:33 | disposition home or self-care (01) | LOC: ULT 09:32 | PROVIDERS: ATTEND Urology | DX: N13.30 Unspecified hydronephrosis (principal) | CPT/HCPCS: 76770 ==

== ENCOUNTER 2021-08-24 13:57 | Outpatient (CLI) | payer BC ==
[2021-08-24 15:43] LABS: Anion Gap 12 mmol/L (10-20); BUN (Urea Nitrogen) 16 mg/dL (9.8-20.1); Calc. Creatinine Clearance 0 mL/min (70-130); Calcium 8.9 mg/dL (7.8-10.44); Carbon Dioxide 26 mmol/L (22-29); Chloride 108 mmol/L (98-107); Glucose 88 mg/dL (70-105); Potassium 4.7 mmol/L (3.5-5.1); Sodium 141 mmol/L (136-145)
[2021-08-25 08:27] LABS: SARS-CoV-2 PCR by NAA Not Detected (NotDetected)
== END 2021-08-24 13:58 | disposition home or self-care (01) ==
LOC: LABBT 13:57
PROVIDERS: ATTEND Surgery
DX: Z01.812 Encounter for preprocedural laboratory examination (principal); R19.00 Intra-abdominal and pelvic swelling, mass and lump, unspecified site; Z20.822 Contact with and (suspected) exposure to COVID-19
CPT/HCPCS: 80048; U0003; U0005

== ENCOUNTER 2021-08-27 08:02 | Day surgery (SDC) | payer BC ==
[2021-08-19 16:10] VITALS: BMI 19.5
[2021-08-27] MEDS ORDERED: Fentanyl 100 MCG/2 ML VIAL ONE ×2 (10:29→12:22)
[2021-08-27] MEDS ORDERED: Bupivacaine 0.25% HCL 30 ML VIAL ONE (10:33)
[2021-08-27] MEDS ORDERED: Xylocaine 1% w/ Epi 1:100K 10 ML VIAL ONE (10:33)
[2021-08-27] MEDS ORDERED: ceFAZolin 2 GM/Dextrose 50 ML IVPB ONE (10:42)
[2021-08-27] MEDS ORDERED: Ondansetron PF 4 MG/2 ML Vial ONE (10:57)
[2021-08-27] MEDS ORDERED: Rocuronium Bromide 10 MG/ML (10ML VIAL) ONE (10:57)
[2021-08-27] MEDS ORDERED: Dexamethasone 20 MG/5 ML VIAL ONE (10:57)
[2021-08-27] MEDS ORDERED: ePHEDrine 50 MG/ML VIAL ONE (10:57)
[2021-08-27] MEDS ORDERED: Lidocaine 1% PF 5 ML VIAL ONE (10:57)
[2021-08-27] MEDS ORDERED: Glycopyrrolate 0.2 MG/ML 5 ML SYRINGE ONE ×2 (10:57→11:20)
[2021-08-27] MEDS ORDERED: PROPOFOL 200 MG/20 ML VIAL ONE (10:57)
[2021-08-27] MEDS ORDERED: traMADol HCl 50 MG TAB ONE (12:46)
== END 2021-08-27 13:52 | disposition home or self-care (01) ==
LOC: SDC 08:02
PROVIDERS: ATTEND Surgery
PROC: 0TB64ZX Excision of Right Ureter, Percutaneous Endoscopic Approach, Diagnostic (ICD-10-PCS; principal; 2021-08-27)
DX: C76.3 Malignant neoplasm of pelvis (principal); C79.9 Secondary malignant neoplasm of unspecified site; N13.5 Crossing vessel and stricture of ureter without hydronephrosis; Z85.048 Personal history of other malignant neoplasm of rectum, rectosigmoid junction, and anus; Z79.899 Other long term (current) drug therapy; Z88.1 Allergy status to other antibiotic agents; Z88.5 Allergy status to narcotic agent; Z88.8 Allergy status to other drugs, medicaments and biological substances; Z90.49 Acquired absence of other specified parts of digestive tract; Z98.51 Tubal ligation status
CPT/HCPCS: 88305; 88341; 88342; C1713; J0690; J1100; J2405; J2704; J3010; J3490; S0020

== ENCOUNTER 2021-09-04 09:31 | Outpatient (CLI) | payer BC ==
[2021-09-04 10:34] LABS: Bilirubin Neg (Negative); Blood, Urine 10 (Negative); Clarity Clear (Clear); Glucose, Urine (Dipstick) Normal (Negative); Ketone, Urine Negative (Negative); Leukocyte 25 (Negative); Nitrite Negative (Negative); Protein, Urine (Dipstick) 15 mg/dl (Neg-Trace); Specific Gravity, Urine 1.015 (1.002-1.036); Urobilinogen Normal mg/dL (Less than 2)
[2021-09-04 10:40] LABS: Hemoglobin 12.1 g/dL (12.0-15.5); Mean Corpuscular HGB CONC 31.3 g/dL (32.0-36.0); Mean Corpuscular Hemoglobin 31.9 pg (27.0-33.0); Mean Corpuscular Volume 101.8 fl (81.6-98.3); Mean Platelet Volume 9.2 fl (7.4-10.4); Platelet Count 214 10x3/uL (150-450); RBC Distribution Width 12.7 % (11.5-14.5); Red Blood Cell (RBC) Count 3.79 10x6/uL (3.90-5.03); White Blood Cell (WBC) Count 5.7 10x3/uL (3.5-10.5)
[2021-09-04 10:57] LABS: Anion Gap 12 mmol/L (10-20); BUN (Urea Nitrogen) 13 mg/dL (9.8-20.1); Calc. Creatinine Clearance 0 mL/min (70-130); Calcium 8.8 mg/dL (7.8-10.44); Carbon Dioxide 26 mmol/L (22-29); Chloride 105 mmol/L (98-107); Glucose 81 mg/dL (70-105); Potassium 4.1 mmol/L (3.5-5.1); Sodium 139 mmol/L (136-145)
[2021-09-04 11:06] LABS: PTT 24.8 sec (22.0-33.0); Prothrombin Time 10.7 sec (9.5-12.1)
[2021-09-04 11:18] LABS: Bacteria/HPF Rare-Few HPF (None Seen); RBC/HPF 0-3 HPF (0-3); Squamous Epithelial 0-3 HPF (0-3); WBC/HPF 0-3 HPF (0-3)
[2021-09-04 11:20] LABS: Urine Culture Reflex Yes Yes
[2021-09-04 18:46] LABS: SARS-CoV-2 PCR by NAA Not Detected (NotDetected)
== END 2021-09-04 09:32 | disposition home or self-care (01) ==
LOC: LABBT 09:31
PROVIDERS: ATTEND Urology
DX: Z01.818 Encounter for other preprocedural examination (principal); R19.00 Intra-abdominal and pelvic swelling, mass and lump, unspecified site; Z20.822 Contact with and (suspected) exposure to COVID-19
CPT/HCPCS: 80048; 81001; 85027; 85610; 85730; 87086; 93005; 93010; U0003; U0005

== ENCOUNTER 2021-09-09 07:59 | Day surgery (SDC) | payer BC ==
[2021-09-04 10:38] VITALS: BMI 19.5
[2021-09-09] MEDS ORDERED: Levofloxacin 500 mg/D5W 100 ml Premix Bag ONE (10:33)
[2021-09-09] MEDS ORDERED: Iothalamate Meglumine 60% 50 ML VIAL FS ONE (11:33)
[2021-09-09] MEDS ORDERED: Fentanyl 250 MCG/5 ML VIAL ONE (11:45)
[2021-09-09] MEDS ORDERED: Bupivacaine 0.25% HCL 30 ML VIAL ONE (11:50)
[2021-09-09] MEDS ORDERED: Xylocaine 1% w/ Epi 1:100K 10 ML VIAL ONE (11:50)
[2021-09-09] MEDS ORDERED: ceFAZolin Sodium (SDC) 2 GM/100 ML BAG ONE (11:52)
[2021-09-09] MEDS ORDERED: Lidocaine 1% PF 5 ML VIAL ONE (12:04)
[2021-09-09] MEDS ORDERED: PROPOFOL 200 MG/20 ML VIAL ONE (12:04)
[2021-09-09] MEDS ORDERED: ePHEDrine 50 MG/ML VIAL ONE (12:04)
[2021-09-09] MEDS ORDERED: Dexamethasone 20 MG/5 ML VIAL ONE (12:04)
[2021-09-09] MEDS ORDERED: PHENYLEPHRINE-NS 100 MCG/ML 10 ML SYRINGE ONE (12:04)
[2021-09-09] MEDS ORDERED: Glycopyrrolate 0.2 MG/ML 5 ML SYRINGE ONE (12:04)
[2021-09-09] MEDS ORDERED: Rocuronium Bromide 10 MG/ML (10ML VIAL) ONE (12:04)
[2021-09-09] MEDS ORDERED: Ondansetron PF 4 MG/2 ML Vial ONE (12:04)
[2021-09-09] MEDS ORDERED: Phenazopyridine HCl 100 MG TAB ONE (13:37)
== END 2021-09-09 15:40 | disposition home or self-care (01) ==
LOC: SDC 07:59
PROVIDERS: ATTEND Urology
PROC: 0T768ZZ Dilation of Right Ureter, Via Natural or Artificial Opening Endoscopic (ICD-10-PCS; principal; 2021-09-09)
PROC: 0JH60WZ Insertion of Totally Implantable Vascular Access Device into Chest Subcutaneous Tissue and Fascia, Open Approach (ICD-10-PCS; principal; 2021-09-09)
PROC: 02HV33Z Insertion of Infusion Device into Superior Vena Cava, Percutaneous Approach (ICD-10-PCS; principal; 2021-09-09)
PROC: 0T768DZ Dilation of Right Ureter with Intraluminal Device, Via Natural or Artificial Opening Endoscopic (ICD-10-PCS; principal; 2021-09-09)
DX: N13.1 Hydronephrosis with ureteral stricture, not elsewhere classified (principal); C20 Malignant neoplasm of rectum; C77.5 Secondary and unspecified malignant neoplasm of intrapelvic lymph nodes; J44.9 Chronic obstructive pulmonary disease, unspecified; E78.2 Mixed hyperlipidemia; F17.210 Nicotine dependence, cigarettes, uncomplicated; Z79.899 Other long term (current) drug therapy; Z88.1 Allergy status to other antibiotic agents; Z88.5 Allergy status to narcotic agent; Z88.8 Allergy status to other drugs, medicaments and biological substances; Z91.048 Other nonmedicinal substance allergy status; Z90.49 Acquired absence of other specified parts of digestive tract; Y84.2 Radiological procedure and radiotherapy as the cause of abnormal reaction of the patient, or of later complication, without mention of misadventure at the time of the procedure
CPT/HCPCS: 71045; 74420; C1788; C2617; J0690; J1100; J1642; J1956; J2405; J2704; J3010; J3490; Q9961-U8; S0020

== ENCOUNTER 2021-09-25 08:00 | Outpatient (CLI) | payer BC | END 2021-09-25 08:01 | disposition home or self-care (01) | LOC: CT 08:00 | PROVIDERS: ATTEND Internal Medicine Hematology & Oncology | DX: C20 Malignant neoplasm of rectum (principal); R59.0 Localized enlarged lymph nodes | CPT/HCPCS: 74177 ==

== ENCOUNTER 2022-01-04 11:06 | Outpatient (CLI) | payer BC, MEDICARE ==
[~2022-01-04 11:06] MED LIST changes: -ISOVUE-370 76%-LOCM 1 ML ONE; +Iopamidol-370 76% 500 ML 1 ML ONE
== END 2022-01-04 11:07 | disposition home or self-care (01) ==
LOC: BICCT 11:06
PROVIDERS: ATTEND Surgery
DX: C20 Malignant neoplasm of rectum (principal); Z96.0 Presence of urogenital implants
CPT/HCPCS: 74177; Q9967

== ENCOUNTER 2022-02-15 11:04 | Outpatient (CLI) | payer BC ==
[2022-02-15 12:04] LABS: Hemoglobin 13.9 g/dL (12.0-15.5); Mean Corpuscular Volume 96.8 fl (81.6-98.3); Platelet Count 278 10x3/uL (150-450); RBC Distribution Width 14.2 % (11.5-14.5); Red Blood Cell (RBC) Count 4.35 10x6/uL (3.90-5.03); White Blood Cell (WBC) Count 4.7 10x3/uL (3.5-10.5)
[2022-02-15 12:25] LABS: INR-International Normal Ratio 0.9; PTT 24.8 sec (22.0-33.0); Prothrombin Time 9.8 sec (9.5-12.1)
[2022-02-15 12:27] LABS: Anion Gap 15 mmol/L (10-20); BUN (Urea Nitrogen) 17 mg/dL (9.8-20.1); Calc. Creatinine Clearance 0 mL/min (70-130); Calcium 10.2 mg/dL (7.8-10.44); Carbon Dioxide 28 mmol/L (22-29); Chloride 100 mmol/L (98-107); Estimated GFR 52; Glucose 95 mg/dL (70-105); Potassium 4.9 mmol/L (3.5-5.1); Sodium 138 mmol/L (136-145)
== END 2022-02-15 11:05 | disposition home or self-care (01) ==
LOC: LABBT 11:04
PROVIDERS: ATTEND Urology
DX: Z01.818 Encounter for other preprocedural examination (principal); C20 Malignant neoplasm of rectum; F17.210 Nicotine dependence, cigarettes, uncomplicated; M54.12 Radiculopathy, cervical region; H40.9 Unspecified glaucoma; R35.0 Frequency of micturition; N28.9 Disorder of kidney and ureter, unspecified; N39.41 Urge incontinence; N13.1 Hydronephrosis with ureteral stricture, not elsewhere classified; Z20.822 Contact with and (suspected) exposure to COVID-19
CPT/HCPCS: 80048; 85027; 85610; 85730; 87811; 93005; 93010

== ENCOUNTER 2022-02-17 07:01 | Day surgery (SDC) | payer BC ==
[2022-02-15 12:19] VITALS: BMI 20.2
[2022-02-17] MEDS ORDERED: cefTRIAXone\\ROCEPHIN 1 GM VIAL ONE (07:52)
[2022-02-17] MEDS ORDERED: Lidocaine 1% MPF 2 ML VIAL ONE (07:52)
[2022-02-17] MEDS ORDERED: Sodium Chloride 0.9% 100 ML ONE (07:52)
[2022-02-17] MEDS ORDERED: Fentanyl 100 MCG/2 ML VIAL ONE (09:22)
[2022-02-17] MEDS ORDERED: Iopamidol 45 ML ONE (09:35)
[2022-02-17] MEDS ORDERED: Ondansetron PF 4 MG/2 ML Vial ONE (09:55)
[2022-02-17] MEDS ORDERED: Lidocaine 1% PF 5 ML VIAL ONE (09:55)
[2022-02-17] MEDS ORDERED: Dexamethasone 20 MG/5 ML VIAL ONE (09:55)
[2022-02-17] MEDS ORDERED: Glycopyrrolate 0.2 MG/ML 5 ML SYRINGE ONE (09:55)
[2022-02-17] MEDS ORDERED: PROPOFOL 200 MG/20 ML VIAL ONE (09:55)
[2022-02-17] MEDS ORDERED: Phenylephrine 10 MG/ML VIAL ONE (09:55)
[2022-02-17] MEDS ORDERED: Phenazopyridine HCl 100 MG TAB ONE (10:31)
[2022-02-17] MEDS ORDERED: Ketorolac Tromethamine 30 MG/ML VIAL ONE (10:31)
[2022-02-17] MEDS ORDERED: HYDROcodone/Acetaminophen 5/325 mg Tablet ONE (11:42)
[2022-02-17] MEDS ORDERED: Sodium Chloride 0.9% 10 ML ONE (12:21)
== END 2022-02-17 12:50 | disposition home or self-care (01) ==
LOC: SDC 07:01
PROVIDERS: ATTEND Urology
PROC: 0T768DZ Dilation of Right Ureter with Intraluminal Device, Via Natural or Artificial Opening Endoscopic (ICD-10-PCS; principal; 2022-02-17)
DX: N13.1 Hydronephrosis with ureteral stricture, not elsewhere classified (principal); C20 Malignant neoplasm of rectum; N39.41 Urge incontinence; R35.0 Frequency of micturition; J44.9 Chronic obstructive pulmonary disease, unspecified; E78.2 Mixed hyperlipidemia; Z87.891 Personal history of nicotine dependence; Z79.899 Other long term (current) drug therapy; Z88.1 Allergy status to other antibiotic agents; Z88.5 Allergy status to narcotic agent; Z88.8 Allergy status to other drugs, medicaments and biological substances; Z91.048 Other nonmedicinal substance allergy status; Z93.3 Colostomy status
CPT/HCPCS: 74018; 74420; C2617; J0696; J1100; J1642; J1885; J2370; J2405; J2704; J3010; J3490; Q9967

== ENCOUNTER 2022-05-20 09:06 | Outpatient (CLI) | payer BC ==
[2021-10-29 13:25] VITALS: BMI 19.5
[2022-05-20 10:24] LABS: Hemoglobin 12.3 g/dL (12.0-15.5); Mean Corpuscular HGB CONC 32.8 g/dL (32.0-36.0); Mean Corpuscular Hemoglobin 31.7 pg (27.0-33.0); Mean Corpuscular Volume 96.6 fl (81.6-98.3); Mean Platelet Volume 10.5 fl (7.4-10.4); Platelet Count 211 10x3/uL (150-450); RBC Distribution Width 13.7 % (11.5-14.5); Red Blood Cell (RBC) Count 3.88 10x6/uL (3.90-5.03); White Blood Cell (WBC) Count 3.9 10x3/uL (3.5-10.5)
[2022-05-20 10:49] LABS: Anion Gap 12 mmol/L (10-20); BUN (Urea Nitrogen) 16 mg/dL (9.8-20.1); Calc. Creatinine Clearance 56 mL/min (70-130); Calcium 9.1 mg/dL (7.8-10.44); Carbon Dioxide 26 mmol/L (22-29); Chloride 106 mmol/L (98-107); Estimated GFR 68; Glucose 81 mg/dL (70-105); Potassium 4.1 mmol/L (3.5-5.1); Sodium 140 mmol/L (136-145)
== END 2022-05-20 09:07 | disposition home or self-care (01) ==
LOC: LABBT 09:06
PROVIDERS: ATTEND Urology
DX: Z01.812 Encounter for preprocedural laboratory examination (principal); N13.30 Unspecified hydronephrosis
CPT/HCPCS: 80048; 85027; 87086

== ENCOUNTER 2022-07-20 08:57 | Outpatient (CLI) | payer BC ==
[2022-07-20] MEDS ORDERED: Iopamidol-370 76% 500 ML 1 ML ONE (13:21)
== END 2022-07-20 08:58 | disposition home or self-care (01) ==
LOC: BICCT 08:57
PROVIDERS: ATTEND Internal Medicine Hematology & Oncology
DX: C20 Malignant neoplasm of rectum (principal); N13.39 Other hydronephrosis; R91.8 Other nonspecific abnormal finding of lung field
CPT/HCPCS: 71260; 74177; 82565; Q9967

== ENCOUNTER 2022-08-31 11:13 | Outpatient (CLI) | payer BC | END 2022-08-31 11:14 | disposition home or self-care (01) | LOC: SCSMRI 11:13 | PROVIDERS: ATTEND Internal Medicine Hematology & Oncology | DX: C20 Malignant neoplasm of rectum (principal); M53.3 Sacrococcygeal disorders, not elsewhere classified; M54.50 Low back pain, unspecified; M25.551 Pain in right hip; M47.816 Spondylosis without myelopathy or radiculopathy, lumbar region; M47.817 Spondylosis without myelopathy or radiculopathy, lumbosacral region; M51.36 Other intervertebral disc degeneration, lumbar region; M48.061 Spinal stenosis, lumbar region without neurogenic claudication; K60.2 Anal fissure, unspecified; M25.78 Osteophyte, vertebrae | CPT/HCPCS: 72158; 72197 ==

== ENCOUNTER 2022-09-17 09:27 | Outpatient (CLI) | payer BC ==
[2022-09-17] MEDS ORDERED: GASTROGRAFIN 30 ML BOT ONE (12:27)
[2022-09-17] MEDS ORDERED: Iopamidol 370 76% 100 ML VIAL ONE (12:27)
== END 2022-09-17 09:28 | disposition home or self-care (01) ==
LOC: CT 09:27
PROVIDERS: ATTEND Internal Medicine Hematology & Oncology
DX: C20 Malignant neoplasm of rectum (principal); N39.0 Urinary tract infection, site not specified; R10.9 Unspecified abdominal pain; N28.89 Other specified disorders of kidney and ureter; R91.1 Solitary pulmonary nodule; R16.0 Hepatomegaly, not elsewhere classified; Z98.890 Other specified postprocedural states; Z90.49 Acquired absence of other specified parts of digestive tract
CPT/HCPCS: 74178; Q9963; Q9967

== ENCOUNTER 2022-09-22 09:58 | Outpatient (CLI) | payer BC ==
[2022-09-22 11:13] LABS: Hemoglobin 10.8 g/dL (12.0-15.5); Mean Corpuscular HGB CONC 30.3 g/dL (32.0-36.0); Mean Corpuscular Hemoglobin 29.9 pg (27.0-33.0); Mean Corpuscular Volume 98.6 fl (81.6-98.3); Mean Platelet Volume 9.5 fl (7.4-10.4); Platelet Count 284 10x3/uL (150-450); RBC Distribution Width 15.4 % (11.5-14.5); Red Blood Cell (RBC) Count 3.61 10x6/uL (3.90-5.03); White Blood Cell (WBC) Count 7.2 10x3/uL (3.5-10.5)
[2022-09-22 11:22] LABS: PTT 24.2 sec (22.0-33.0); Prothrombin Time 10.5 sec (9.5-12.1)
[2022-09-22 11:23] LABS: Anion Gap 15 mmol/L (10-20); BUN (Urea Nitrogen) 9 mg/dL (9.8-20.1); Calc. Creatinine Clearance 0 mL/min (70-130); Calcium 8.8 mg/dL (7.8-10.44); Carbon Dioxide 26 mmol/L (22-29); Chloride 106 mmol/L (98-107); Estimated GFR 53; Glucose 87 mg/dL (70-105); Potassium 3.9 mmol/L (3.5-5.1); Sodium 143 mmol/L (136-145)
== END 2022-09-22 09:59 | disposition home or self-care (01) ==
LOC: LABBT 09:58
PROVIDERS: ATTEND Urology
DX: Z01.812 Encounter for preprocedural laboratory examination (principal); N13.30 Unspecified hydronephrosis; Z96.0 Presence of urogenital implants
CPT/HCPCS: 80048; 85027; 85610; 85730

== ENCOUNTER 2022-09-28 09:45 | Day surgery (SDC) | payer BC ==
[2022-09-24 11:06] VITALS: BMI 20.3
[2022-09-28] MEDS ORDERED: Levofloxacin 500 mg/D5W 100 ml Premix Bag ONE (11:15)
[2022-09-28] MEDS ORDERED: Iopamidol 30 ML ONE (11:25)
[2022-09-28] MEDS ORDERED: SUGAMMADEX SODIUM 200 MG/2 ML VIAL ONE (11:46)
[2022-09-28] MEDS ORDERED: Famotidine/PF 20 mg/2ml Vial ONE (11:46)
[2022-09-28] MEDS ORDERED: fentaNYL PF 100 MCG/2 ML SYRINGE ONE (11:46)
[2022-09-28] MEDS ORDERED: PHENYLEPHRINE-NS 100 MCG/ML 10 ML SYRINGE ONE (11:52)
[2022-09-28] MEDS ORDERED: PROPOFOL 200 MG/20 ML VIAL ONE (11:52)
[2022-09-28] MEDS ORDERED: Ondansetron PF 4 MG/2 ML Vial ONE (11:52)
[2022-09-28] MEDS ORDERED: Lidocaine 1% PF 5 ML VIAL ONE (11:52)
== END 2022-09-28 14:15 | disposition home or self-care (01) ==
LOC: SDC 09:45
PROVIDERS: ATTEND Urology
PROC: 0TCB8ZZ Extirpation of Matter from Bladder, Via Natural or Artificial Opening Endoscopic (ICD-10-PCS; principal; 2022-09-28)
PROC: 0TP98DZ Removal of Intraluminal Device from Ureter, Via Natural or Artificial Opening Endoscopic (ICD-10-PCS; principal; 2022-09-28)
PROC: 0T768DZ Dilation of Right Ureter with Intraluminal Device, Via Natural or Artificial Opening Endoscopic (ICD-10-PCS; principal; 2022-09-28)
DX: N13.1 Hydronephrosis with ureteral stricture, not elsewhere classified (principal); N21.0 Calculus in bladder; Z79.899 Other long term (current) drug therapy; Z88.1 Allergy status to other antibiotic agents; Z88.5 Allergy status to narcotic agent; Z88.8 Allergy status to other drugs, medicaments and biological substances
CPT/HCPCS: 74420; J1642; J1956; J2405; J2704; Q9967; S0028

== ENCOUNTER 2022-10-26 08:27 | Outpatient (CLI) | payer BC ==
[2022-10-26] MEDS ORDERED: Iopamidol 300 61% 100 ML VIAL FS ONE (09:58)
== END 2022-10-26 08:28 | disposition home or self-care (01) ==
LOC: RAD 08:27
PROVIDERS: ATTEND Internal Medicine Hematology & Oncology
DX: Z45.2 Encounter for adjustment and management of vascular access device (principal); C20 Malignant neoplasm of rectum; N13.39 Other hydronephrosis; T82.598A Other mechanical complication of other cardiac and vascular devices and implants, initial encounter; K21.9 Gastro-esophageal reflux disease without esophagitis
CPT/HCPCS: 36598; J1642; Q9967

== ENCOUNTER 2022-11-13 19:14 | Inpatient (IN) | payer BC ==
[~2022-11-13 19:14] MED LIST changes: -Iopamidol-370 76% 500 ML 1 ML ONE; +Iopamidol-370 76% 500 ML MDV (1 ML CHARGE) ONE
[2022-11-13 20:21] LABS: #Eosinphils 0.1 thou/uL (0.0-0.7); #Lymphocytes 0.8 thou/uL (1.20-3.40); #Monocytes 0.1 thou/uL (0.11-0.59); %Basophils 0.7 % (0.0-1.0); %Lymphocytes 42.4 % (21.0-51.0); %Monocytes 4.1 % (0.0-10.0); %Neutrophils 49.8 % (42.0-75.0); Hemoglobin 10.4 g/dL (12.0-16.0); Mean Corpuscular HGB CONC 33.9 g/dL (32.0-36.0); Mean Corpuscular Hemoglobin 31.1 pg (27.0-31.0); Mean Corpuscular Volume 91.6 fl (78.0-98.0); Mean Platelet Volume 7.6 fL (7.4-10.4); Platelet Count 162 10x3/uL (130-400); RBC Distribution Width 13.8 % (11.5-14.5); Red Blood Cell (RBC) Count 3.36 mill/uL (4.20-5.40)
[2022-11-13 20:37] LABS: INR-International Normal Ratio 1.1; PTT 24.6 sec (22.9-36.1); Prothrombin Time 14.6 sec (12.0-14.7)
[2022-11-13 20:43] LABS: ALT (SGPT) Less than 7 U/L (8-55); AST (SGOT) 8 U/L (5-34); Albumin 3.7 g/dL (3.5-5.0); Alkaline Phosphatase 75 U/L (40-110); Anion Gap 12 mmol/L (10-20); BUN (Urea Nitrogen) 15 mg/dL (9.8-20.1); Bilirubin, Total 0.6 mg/dL (0.2-1.2); CK (CPK) 27 U/L (29-168); Calc. Creatinine Clearance 0 mL/min (70-130); Calcium 8.6 mg/dL (7.8-10.44); Carbon Dioxide 24 mmol/L (22-29); Chloride 104 mmol/L (98-107); Estimated GFR 62; Globulin 2.8 g/dL (2.4-3.5); Glucose 161 mg/dL (70-105); Lipase 15 U/L (8-78); Potassium 3.3 mmol/L (3.5-5.1); Protein, Total 6.5 g/dL (6.0-8.3); Sodium 137 mmol/L (136-145)
[2022-11-13] MEDS ORDERED: Cefepime 2 GM VIAL ONE (20:57)
[2022-11-13] MEDS ORDERED: VANCOMYCIN 1.25 GM/250 ML BAG 1.25 GM in Premix Bag 1 BAG IVPB SCH (21:30)
[2022-11-13 22:16] LABS: Bilirubin Negative (Negative); Blood, Urine Negative (Negative); Clarity Clear (Clear); Glucose, Urine (Dipstick) Normal (Negative); Ketone, Urine Negative (Negative); Leukocyte Negative Leu/uL (Negative); Nitrite Negative (Negative); Protein, Urine (Dipstick) 10 mg/dL (Neg-Trace); Specific Gravity, Urine 1.029 (1.002-1.036); Urobilinogen Normal mg/dL (Less than 2); pH, Urine 6.5 (5.0-9.0)
[2022-11-14] MEDS ORDERED: Ondansetron ODT 4 MG TAB PO PRN (00:22)
[2022-11-14] MEDS ORDERED: Acetaminophen 325 MG TAB PO PRN (00:32)
[2022-11-14] MEDS ORDERED: Calcium Carbonate 500 MG ChewTAB PO PRN (00:34)
[2022-11-14 00:52] VITALS: BMI 20.3
[2022-11-14 01:47] LABS: #Eosinphils 0.1 thou/uL (0.0-0.7); #Monocytes 0.1 thou/uL (0.11-0.59); #Neutrophils 1.2 thou/uL (1.40-6.50); %Basophils 0.9 % (0.0-1.0); %Eosinophils 3.2 % (0.0-10.0); %Lymphocytes 40.5 % (21.0-51.0); %Monocytes 4.4 % (0.0-10.0); Hemoglobin 9.5 g/dL (12.0-16.0); Mean Corpuscular HGB CONC 33.5 g/dL (32.0-36.0); Mean Corpuscular Hemoglobin 31.1 pg (27.0-31.0); Mean Platelet Volume 7.8 fL (7.4-10.4); Platelet Count 153 10x3/uL (130-400); RBC Distribution Width 13.9 % (11.5-14.5); Red Blood Cell (RBC) Count 3.04 mill/uL (4.20-5.40); White Blood Cell (WBC) Count 2.4 10x3/uL (4.8-10.8)
[2022-11-14 02:15] LABS: Anion Gap 12 mmol/L (10-20); BUN (Urea Nitrogen) 12 mg/dL (9.8-20.1); Calc. Creatinine Clearance 66 mL/min (70-130); Calcium 8.1 mg/dL (7.8-10.44); Carbon Dioxide 21 mmol/L (22-29); Chloride 109 mmol/L (98-107); Estimated GFR 78; Glucose 105 mg/dL (70-105); Potassium 3.3 mmol/L (3.5-5.1); Sodium 139 mmol/L (136-145)
[2022-11-14] MEDS: HYDROcodone/Acetaminophen 5/325 mg Tablet PO PRN ×3 (05:18→15:21)
[2022-11-14] MEDS ORDERED: Electrolyte Replacement Protocol 1 EACH FS SCH (05:53)
[2022-11-14] MEDS ORDERED: Cefepime 2 GM in Sodium Chloride 0.9% 100 ML IVPB SCH (06:00)
[2022-11-14] MEDS ORDERED: Potassium Chloride 20 MEQ TAB PO SCH (08:00)
[2022-11-14] MEDS ORDERED: Vancomycin 1 GM in Premix Bag 1 BAG IVPB SCH (09:00)
[2022-11-14] MEDS ORDERED: Sodium Chloride 0.9% 1,000 ML IV SCH (09:00)
[2022-11-14 09:23] LABS: Vancomycin, Peak 12.4 ug/mL (20.0-40.0)
[2022-11-14] MEDS: Sodium Chloride 0.9% 1,000 ML IV SCH ×2 (09:55→20:56)
[2022-11-14] MEDS: Famotidine 20 MG TAB PO SCH ×2 (09:57→20:54)
[2022-11-14] MEDS: Gabapentin 300 MG CAP PO SCH ×2 (09:57→20:54)
[2022-11-14] MEDS: DorzolamidE/Timolol 2%/0.5% Ophth Soln 10 ml Bottle EA EYE SCH ×2 (09:59→20:54)
[2022-11-14] MEDS ORDERED: Piperacillin/Tazobactam 3.375 GM in Sodium Chloride 0.9% 100 ML IVPB SCH ×2 (12:00→14:00)
[2022-11-14] MEDS: Ketorolac Tromethamine 30 MG/ML VIAL IVP PRN (18:45)
[2022-11-14] MEDS: Piperacillin/Tazobactam 3.375 GM in Sodium Chloride 0.9% 100 ML IVPB SCH (20:55)
[2022-11-14] MEDS: Lorazepam 1 MG TAB PO SCH (20:55)
[2022-11-14] MEDS: Loratadine 10 MG TAB PO SCH (20:55)
[2022-11-14] MEDS: Latanoprost 0.005% Ophth Soln 2.5 ml Bottle EA EYE SCH (21:25)
[2022-11-15] MEDS: Ketorolac Tromethamine 30 MG/ML VIAL IVP PRN ×3 (05:32→21:17)
[2022-11-15] MEDS: Piperacillin/Tazobactam 3.375 GM in Sodium Chloride 0.9% 100 ML IVPB SCH ×3 (05:32→21:13)
[2022-11-15 07:17] LABS: #Eosinphils 0.1 thou/uL (0.0-0.7); #Lymphocytes 0.7 thou/uL (1.20-3.40); #Monocytes 0.1 thou/uL (0.11-0.59); #Neutrophils 1.2 thou/uL (1.40-6.50); %Basophils 0.4 % (0.0-1.0); %Eosinophils 4.7 % (0.0-10.0); %Lymphocytes 34.4 % (21.0-51.0); %Neutrophils 54.6 % (42.0-75.0); Hemoglobin 8.8 g/dL (12.0-16.0); Mean Corpuscular HGB CONC 33.4 g/dL (32.0-36.0); Mean Corpuscular Hemoglobin 30.6 pg (27.0-31.0); Mean Corpuscular Volume 91.8 fl (78.0-98.0); Platelet Count 137 10x3/uL (130-400); Red Blood Cell (RBC) Count 2.88 mill/uL (4.20-5.40); White Blood Cell (WBC) Count 2.2 10x3/uL (4.8-10.8)
[2022-11-15 07:41] LABS: Anion Gap 10 mmol/L (10-20); BUN (Urea Nitrogen) 9 mg/dL (9.8-20.1); Calc. Creatinine Clearance 55 mL/min (70-130); Calcium 8.2 mg/dL (7.8-10.44); Carbon Dioxide 23 mmol/L (22-29); Chloride 111 mmol/L (98-107); Estimated GFR 63; Glucose 108 mg/dL (70-105); Potassium 3.5 mmol/L (3.5-5.1); Sodium 140 mmol/L (136-145)
[2022-11-15] MEDS: Gabapentin 300 MG CAP PO SCH ×2 (08:34→21:15)
[2022-11-15] MEDS: DorzolamidE/Timolol 2%/0.5% Ophth Soln 10 ml Bottle EA EYE SCH ×2 (08:34→21:15)
[2022-11-15] MEDS: Famotidine 20 MG TAB PO SCH ×2 (08:34→21:15)
[2022-11-15] MEDS: Sodium Chloride 0.9% 1,000 ML IV SCH (08:35)
[2022-11-15] MEDS ORDERED: Potassium Bicarbonate/Cit Ac 20 MEQ TAB PO SCH (10:00)
[2022-11-15] MEDS ORDERED: Loperamide HCl 2 MG CAP PO PRN (19:44)
[2022-11-15] MEDS: Lorazepam 1 MG TAB PO SCH (21:15)
[2022-11-15] MEDS: Latanoprost 0.005% Ophth Soln 2.5 ml Bottle EA EYE SCH (21:15)
[2022-11-15] MEDS: Loratadine 10 MG TAB PO SCH (21:19)
[2022-11-15 22:42] VITALS: TEMP 98.1
[2022-11-16] MEDS: Sodium Chloride 0.9% 1,000 ML IV SCH ×2 (01:00→08:18)
[2022-11-16] MEDS: Piperacillin/Tazobactam 3.375 GM in Sodium Chloride 0.9% 100 ML IVPB SCH (06:14)
[2022-11-16 07:28] LABS: #Lymphocytes 0.7 thou/uL (1.20-3.40); #Monocytes 0.2 thou/uL (0.11-0.59); #Neutrophils 0.9 thou/uL (1.40-6.50); %Basophils 0.2 % (0.0-1.0); %Eosinophils 2.6 % (0.0-10.0); %Lymphocytes 37.8 % (21.0-51.0); %Monocytes 8.9 % (0.0-10.0); %Neutrophils 50.6 % (42.0-75.0); Hemoglobin 9.5 g/dL (12.0-16.0); Mean Corpuscular HGB CONC 33.2 g/dL (32.0-36.0); Mean Corpuscular Hemoglobin 30.6 pg (27.0-31.0); Mean Corpuscular Volume 92.2 fl (78.0-98.0); Mean Platelet Volume 7.8 fL (7.4-10.4); Platelet Count 176 10x3/uL (130-400); RBC Distribution Width 14.1 % (11.5-14.5); White Blood Cell (WBC) Count 1.9 10x3/uL (4.8-10.8)
[2022-11-16 07:41] LABS: Anion Gap 12 mmol/L (10-20); BUN (Urea Nitrogen) 8 mg/dL (9.8-20.1); Calc. Creatinine Clearance 57 mL/min (70-130); Calcium 8.4 mg/dL (7.8-10.44); Carbon Dioxide 22 mmol/L (22-29); Chloride 112 mmol/L (98-107); Estimated GFR 66; Glucose 96 mg/dL (70-105); Potassium 3.8 mmol/L (3.5-5.1); Sodium 142 mmol/L (136-145)
[2022-11-16] MEDS: Gabapentin 300 MG CAP PO SCH (08:20)
[2022-11-16] MEDS: DorzolamidE/Timolol 2%/0.5% Ophth Soln 10 ml Bottle EA EYE SCH (08:20)
[2022-11-16] MEDS: Famotidine 20 MG TAB PO SCH (08:20)
[2022-11-16] MEDS: Ketorolac Tromethamine 30 MG/ML VIAL IVP PRN ×2 (08:23→13:45)
[2022-11-16 08:41] VITALS: BP 138/88
== END 2022-11-16 13:58 | disposition home or self-care (01) | DRG 809 ==
LOC: ERS 19:14 → T4-B 23:38 → OBSVTOIN 11-15 16:33
PROVIDERS: ADMIT Internal Medicine; ATTEND Internal Medicine
DX: D70.1 Agranulocytosis secondary to cancer chemotherapy (principal); C19 Malignant neoplasm of rectosigmoid junction; K52.9 Noninfective gastroenteritis and colitis, unspecified; F41.9 Anxiety disorder, unspecified; H40.9 Unspecified glaucoma; G62.9 Polyneuropathy, unspecified; T45.1X5A Adverse effect of antineoplastic and immunosuppressive drugs, initial encounter; R50.81 Fever presenting with conditions classified elsewhere; Z93.3 Colostomy status; Z88.1 Allergy status to other antibiotic agents; Z88.5 Allergy status to narcotic agent; Z88.8 Allergy status to other drugs, medicaments and biological substances; Z79.899 Other long term (current) drug therapy
CPT/HCPCS: 36415; 71045; 74177; 80048; 80053; 80202; 81003; 82550; 83605; 83690; 84484; 85025; 85610; 85730; 87040; 87086; 93005; 96365; 96367; 96375; 96376; G0378; J0692; J1885; J2543; J3370; J3490; J7050; Q9967

== ENCOUNTER 2023-01-05 09:13 | Outpatient (CLI) | payer BC, MEDICARE ==
[2023-01-05 11:13] LABS: Hemoglobin 10.7 g/dL (12.0-15.5); Mean Corpuscular HGB CONC 29.9 g/dL (32.0-36.0); Mean Corpuscular Hemoglobin 27.4 pg (27.0-33.0); Mean Corpuscular Volume 91.8 fl (81.6-98.3); Platelet Count 254 10x3/uL (150-450); RBC Distribution Width 15.5 % (11.5-14.5); White Blood Cell (WBC) Count 3.1 10x3/uL (3.5-10.5)
[2023-01-05 11:29] LABS: Anion Gap 11 mmol/L (10-20); BUN (Urea Nitrogen) 17 mg/dL (9.8-20.1); Calc. Creatinine Clearance 0 mL/min (70-130); Calcium 8.9 mg/dL (7.8-10.44); Carbon Dioxide 28 mmol/L (22-29); Chloride 107 mmol/L (98-107); Estimated GFR 64; Glucose 84 mg/dL (70-105); PTT 23.7 sec (22.0-33.0); Prothrombin Time 10.7 sec (9.5-12.1); Sodium 142 mmol/L (136-145)
== END 2023-01-05 09:14 | disposition home or self-care (01) ==
LOC: LABBT 09:13
PROVIDERS: ATTEND Urology
DX: Z01.812 Encounter for preprocedural laboratory examination (principal); N13.39 Other hydronephrosis
CPT/HCPCS: 80048; 85027; 85610; 85730; 87086; 93005; 93010

== ENCOUNTER 2023-01-11 09:48 | Day surgery (SDC) | payer BC, MEDICARE ==
[2023-01-05 09:38] VITALS: BMI 19.5
[2023-01-11] MEDS ORDERED: Sodium Chloride 0.9% 100 ML ONE (11:32)
[2023-01-11] MEDS ORDERED: CEFAZOLIN 2 GM VIAL ONE (11:32)
[2023-01-11] MEDS ORDERED: fentaNYL 50 mcg/mL 1 mL Vial ONE (12:21)
[2023-01-11] MEDS ORDERED: Lidocaine 1% PF 5 ML VIAL ONE (12:40)
[2023-01-11] MEDS ORDERED: PROPOFOL 200 MG/20 ML VIAL ONE (12:40)
[2023-01-11] MEDS ORDERED: Iopamidol 15 ML ONE (13:18)
== END 2023-01-11 14:50 | disposition home or self-care (01) ==
LOC: SDC 09:48
PROVIDERS: ATTEND Urology
PROC: 0T9B80Z Drainage of Bladder with Drainage Device, Via Natural or Artificial Opening Endoscopic (ICD-10-PCS; principal; 2023-01-11)
DX: N13.39 Other hydronephrosis (principal); N13.2 Hydronephrosis with renal and ureteral calculous obstruction; Z88.8 Allergy status to other drugs, medicaments and biological substances; Z88.5 Allergy status to narcotic agent; Z79.899 Other long term (current) drug therapy
CPT/HCPCS: 74420; C2617; J2704; J3010; J3490; Q9967

== ENCOUNTER 2023-02-22 08:26 | Outpatient (CLI) | payer BC ==
[2023-02-22] MEDS ORDERED: Iopamidol 370 76% 100 ML VIAL ONE (10:28)
== END 2023-02-22 08:27 | disposition home or self-care (01) ==
LOC: BICCT 08:26
PROVIDERS: ATTEND Internal Medicine Hematology & Oncology
DX: C20 Malignant neoplasm of rectum (principal); N13.39 Other hydronephrosis; R91.1 Solitary pulmonary nodule; Z90.49 Acquired absence of other specified parts of digestive tract
CPT/HCPCS: 71260; 74177

== ENCOUNTER 2023-04-06 09:25 | Outpatient (CLI) | payer BC ==
[2023-04-06 10:30] LABS: Hematocrit 36.3 % (34.9-44.5); Hemoglobin 11.2 g/dL (12.0-15.5); Mean Corpuscular HGB CONC 30.9 g/dL (32.0-36.0); Mean Corpuscular Hemoglobin 27.9 pg (27.0-33.0); Mean Corpuscular Volume 90.5 fl (81.6-98.3); Mean Platelet Volume 10.8 fl (7.4-10.4); Platelet Count 126 10x3/uL (150-450); RBC Distribution Width 15.3 % (11.5-14.5); Red Blood Cell (RBC) Count 4.01 10x6/uL (3.90-5.03); White Blood Cell (WBC) Count 2.9 10x3/uL (3.5-10.5)
[2023-04-06 10:41] LABS: PTT 23.4 sec (22.0-33.0)
[2023-04-06 11:06] LABS: Anion Gap 12 mmol/L (10-20); BUN (Urea Nitrogen) 15 mg/dL (9.8-20.1); Calc. Creatinine Clearance 0 mL/min (70-130); Calcium 8.5 mg/dL (7.8-10.44); Carbon Dioxide 29 mmol/L (22-29); Chloride 102 mmol/L (98-107); Estimated GFR 64; Glucose 112 mg/dL (70-105); Potassium 3.6 mmol/L (3.5-5.1); Sodium 139 mmol/L (136-145)
== END 2023-04-06 09:26 | disposition home or self-care (01) ==
LOC: LABBT 09:25
PROVIDERS: ATTEND Urology
DX: Z01.812 Encounter for preprocedural laboratory examination (principal); R31.29 Other microscopic hematuria
CPT/HCPCS: 80048; 85027; 85610; 85730; 87086

== ENCOUNTER 2023-04-12 12:28 | Day surgery (SDC) | payer BC ==
[2023-04-06 09:58] VITALS: BMI 19.7
[2023-04-12] MEDS ORDERED: Iopamidol 30 ML ONE (15:17)
[2023-04-12] MEDS ORDERED: fentaNYL PF 100 MCG/2 ML SYRINGE ONE (15:20)
[2023-04-12] MEDS ORDERED: Sodium Chloride 0.9% 100 ML ONE (15:27)
[2023-04-12] MEDS ORDERED: cefTRIAXone (ROCEPHIN) 2 GM VIAL ONE (15:27)
[2023-04-12] MEDS ORDERED: Lidocaine 1% PF 5 ML VIAL ONE (15:42)
[2023-04-12] MEDS ORDERED: PROPOFOL 200 MG/20 ML VIAL ONE (15:42)
[2023-04-12] MEDS ORDERED: fentaNYL 50 mcg/mL 1 mL Vial ONE (16:30)
== END 2023-04-12 17:32 | disposition home or self-care (01) ==
LOC: SDC 12:28
PROVIDERS: ATTEND Urology
PROC: 0TH98YZ Insertion of Other Device into Ureter, Via Natural or Artificial Opening Endoscopic (ICD-10-PCS; principal; 2023-04-12)
PROC: 0TP98DZ Removal of Intraluminal Device from Ureter, Via Natural or Artificial Opening Endoscopic (ICD-10-PCS; principal; 2023-04-12)
DX: N13.5 Crossing vessel and stricture of ureter without hydronephrosis (principal); Z88.1 Allergy status to other antibiotic agents; Z88.5 Allergy status to narcotic agent; Z88.8 Allergy status to other drugs, medicaments and biological substances
CPT/HCPCS: 74420; C2617; J0696; J2704; J3010; J3490; Q9967

== ENCOUNTER 2023-06-07 10:29 | Outpatient (CLI) | payer BC | END 2023-06-07 10:30 | disposition home or self-care (01) | LOC: BICCT 10:29 | PROVIDERS: ATTEND Internal Medicine Hematology & Oncology | DX: C20 Malignant neoplasm of rectum (principal); R19.09 Other intra-abdominal and pelvic swelling, mass and lump; R91.8 Other nonspecific abnormal finding of lung field; Z96.0 Presence of urogenital implants | CPT/HCPCS: 74177; 82565 ==

== ENCOUNTER 2023-06-07 10:36 | Outpatient (CLI) | payer BC | END 2023-06-07 10:37 | disposition home or self-care (01) | LOC: BICMAMMO 10:36 | PROVIDERS: ATTEND Family Medicine | DX: Z12.31 Encounter for screening mammogram for malignant neoplasm of breast (principal); Z85.89 Personal history of malignant neoplasm of other organs and systems | CPT/HCPCS: 77063; 77067 ==

== ENCOUNTER 2023-06-10 15:35 | Emergency (ER) | payer BC ==
[2023-06-10 16:28] LABS: #Monocytes 1.6 thou/uL (0.11-0.59); #Neutrophils 6.4 thou/uL (1.40-6.50); %Basophils 0.4 % (0.0-1.0); %Eosinophils 0.3 % (0.0-10.0); %Lymphocytes 9.1 % (21.0-51.0); %Monocytes 17.9 % (0.0-10.0); %Neutrophils 71.6 % (42.0-75.0); Hematocrit 30.9 % (36.0-47.0); Hemoglobin 9.4 g/dL (12.0-16.0); Mean Corpuscular HGB CONC 30.4 g/dL (32.0-36.0); Mean Corpuscular Hemoglobin 27.9 pg (27.0-31.0); Mean Corpuscular Volume 91.7 fl (78.0-98.0); Mean Platelet Volume 10.1 fL (7.4-10.4); Platelet Count 144 10x3/uL (130-400); RBC Distribution Width 21.2 % (11.5-14.5); Red Blood Cell (RBC) Count 3.37 mill/uL (4.20-5.40)
[2023-06-10 16:58] LABS: ALT (SGPT) 8 U/L (8-55); AST (SGOT) 17 U/L (5-34); Albumin 2.8 g/dL (3.4-4.8); Alkaline Phosphatase 98 U/L (40-110); Anion Gap 11 mmol/L (10-20); BUN (Urea Nitrogen) 12 mg/dL (9.8-20.1); Bilirubin, Total 0.3 mg/dL (0.2-1.2); Calc. Creatinine Clearance 0 mL/min (70-130); Calcium 7.6 mg/dL (7.8-10.44); Carbon Dioxide 27 mmol/L (23-31); Chloride 104 mmol/L (98-107); Estimated GFR 77; Globulin 2.6 g/dL (2.4-3.5); Glucose 128 mg/dL (80-115); Potassium 3.8 mmol/L (3.5-5.1); Protein, Total 5.4 g/dL (5.8-8.1); Sodium 138 mmol/L (136-145)
[2023-06-10 17:46] LABS: SARS-CoV-2 NAA Rapid Test Not Detected (NotDetected)
[2023-06-10] MEDS ORDERED: Ibuprofen 800 MG TAB ONE (18:52)
== END 2023-06-10 19:45 | disposition home or self-care (01) ==
LOC: ERS 15:35
DX: I82.411 Acute embolism and thrombosis of right femoral vein (principal); Z87.891 Personal history of nicotine dependence
CPT/HCPCS: 36415; 71045; 80053; 83605; 83880; 85025; 87040; 93005

== ENCOUNTER 2023-06-30 11:57 | Outpatient (CLI) | payer BC ==
[2023-06-30 14:47] LABS: Hematocrit 36.7 % (34.9-44.5); Hemoglobin 10.5 g/dL (12.0-15.5); Mean Corpuscular HGB CONC 28.6 g/dL (32.0-36.0); Mean Corpuscular Hemoglobin 26.8 pg (27.0-33.0); Mean Corpuscular Volume 93.6 fl (81.6-98.3); Mean Platelet Volume 10.4 fl (7.4-10.4); Platelet Count 275 10x3/uL (150-450); Red Blood Cell (RBC) Count 3.92 10x6/uL (3.90-5.03); White Blood Cell (WBC) Count 10.4 10x3/uL (3.5-10.5)
[2023-06-30 15:12] LABS: INR-International Normal Ratio 1.4; PTT 39.3 sec (22.0-33.0); Prothrombin Time 15.1 sec (9.5-12.1)
[2023-06-30 15:15] LABS: Anion Gap 17 mmol/L (10-20); BUN (Urea Nitrogen) 14 mg/dL (9.8-20.1); Calc. Creatinine Clearance 0 mL/min (70-130); Calcium 9.1 mg/dL (7.8-10.44); Carbon Dioxide 27 mmol/L (23-31); Chloride 101 mmol/L (98-107); Estimated GFR 77; Glucose 87 mg/dL (80-115); Potassium 4.6 mmol/L (3.5-5.1); Sodium 140 mmol/L (136-145)
== END 2023-06-30 11:58 | disposition home or self-care (01) ==
LOC: LABBT 11:57
PROVIDERS: ATTEND Urology
DX: Z01.812 Encounter for preprocedural laboratory examination (principal); N13.30 Unspecified hydronephrosis
CPT/HCPCS: 80048; 85027; 85610; 85730; 87086

== ENCOUNTER 2023-07-04 06:47 | Day surgery (SDC) | payer BC ==
[2023-06-30 13:07] VITALS: BMI 18.2
[2023-07-04] MEDS ORDERED: fentaNYL PF 100 MCG/2 ML SYRINGE ONE (08:34)
[2023-07-04] MEDS ORDERED: Lidocaine 1% PF 5 ML VIAL ONE (08:34)
[2023-07-04] MEDS ORDERED: PROPOFOL 20 ML ONE (08:34)
[2023-07-04] MEDS ORDERED: Iopamidol 15 ML ONE (08:59)
[2023-07-04] MEDS ORDERED: cefTRIAXone (ROCEPHIN) 1 GM VIAL ONE (09:18)
[2023-07-04] MEDS ORDERED: Sodium Chloride 0.9% 100 ML ONE (09:18)
[2023-07-04] MEDS ORDERED: Dexamethasone 20 MG/5 ML VIAL ONE (09:34)
[2023-07-04] MEDS ORDERED: Ondansetron PF 4 MG/2 ML Vial ONE (09:34)
[2023-07-04] MEDS ORDERED: Morphine 2 MG/ML VIAL ONE (11:06)
== END 2023-07-04 11:45 | disposition home or self-care (01) ==
LOC: SDC 06:47
PROVIDERS: ATTEND Urology
PROC: 0WHR8YZ Insertion of Other Device into Genitourinary Tract, Via Natural or Artificial Opening Endoscopic (ICD-10-PCS; principal; 2023-07-04)
DX: N13.30 Unspecified hydronephrosis (principal); E78.00 Pure hypercholesterolemia, unspecified; Z86.718 Personal history of other venous thrombosis and embolism; Z88.5 Allergy status to narcotic agent; Z88.1 Allergy status to other antibiotic agents; Z88.8 Allergy status to other drugs, medicaments and biological substances
CPT/HCPCS: 74420; C2617; J0696; J1100; J2272; J2405; J2704; J3490; Q9967

== ENCOUNTER 2023-09-17 17:26 | Emergency (ER) | payer BC, MEDICARE ==
[2023-09-17 18:45] LABS: #Monocytes 0.3 thou/uL (0.11-0.59); %Basophils 0.4 % (0.0-1.0); %Monocytes 5.1 % (0.0-10.0); Hematocrit 37.9 % (36.0-47.0); Hemoglobin 11.6 g/dL (12.0-16.0); Mean Corpuscular HGB CONC 30.6 g/dL (32.0-36.0); Mean Corpuscular Hemoglobin 23.9 pg (27.0-31.0); Mean Corpuscular Volume 78.1 fl (78.0-98.0); Mean Platelet Volume 10.7 fL (7.4-10.4); RBC Distribution Width 15.7 % (11.5-14.5); Red Blood Cell (RBC) Count 4.85 mill/uL (4.20-5.40); White Blood Cell (WBC) Count 5.7 10x3/uL (4.8-10.8)
[2023-09-17 18:47] LABS: Platelet Count 82 10x3/uL (130-400)
[2023-09-17 18:59] LABS: ALT (SGPT) 29 U/L (8-55); AST (SGOT) 40 U/L (5-34); Albumin 3.8 g/dL (3.4-4.8); Alkaline Phosphatase 88 U/L (40-110); Anion Gap 15 mmol/L (10-20); BUN (Urea Nitrogen) 24 mg/dL (9.8-20.1); Bilirubin, Total 1.1 mg/dL (0.2-1.2); CK (CPK) 142 U/L (29-168); Calc. Creatinine Clearance 0 mL/min (70-130); Calcium 8.6 mg/dL (7.8-10.44); Carbon Dioxide 25 mmol/L (23-31); Chloride 96 mmol/L (98-107); Estimated GFR 47; Globulin 3.3 g/dL (2.4-3.5); Glucose 130 mg/dL (80-115); Magnesium 1.6 mg/dL (1.6-2.6); Potassium 3.8 mmol/L (3.5-5.1); Protein, Total 7.1 g/dL (5.8-8.1); Sodium 132 mmol/L (136-145)
[2023-09-17 19:06] LABS: Anisocytosis SLIGHT = 6-15 cells HPF (0-5); CellaVision Operator ID lab.dlt; Platelet Adequacy Comment Platelets Decreased; Poikilocytosis SLIGHT = 6-15 cells HPF (0-5); Polychromasia SLIGHT = 2-3 cells HPF (0-2)
[2023-09-17 19:08] LABS: Influenza A by NAA Not Detected (NotDetected); Influenza B by NAA Not Detected (NotDetected); SARS-CoV-2 NAA Rapid Test Not Detected (NotDetected)
[2023-09-17 19:09] LABS: Bilirubin Negative (Negative); Blood, Urine 3+ (Negative); CAUTI Indications for Culture Fever or rigors; Clarity Turbid (Clear); Glucose, Urine (Dipstick) Normal (Negative); Ketone, Urine Negative (Negative); Leukocyte 75 Leu/uL (Negative); Nitrite Negative (Negative); Protein, Urine (Dipstick) 30 mg/dL (Neg-Trace); RBC/HPF Greater than 50 HPF (0-3); Specific Gravity, Urine 1.022 (1.002-1.036); Squamous Epithelial 0-3 HPF (0-3); Urobilinogen Normal mg/dL (Less than 2)
[2023-09-17 19:10] LABS: Bacteria/HPF 1+ HPF (None Seen)
[2023-09-17 19:11] LABS: Urine Culture Reflex Yes Yes
== END 2023-09-17 20:44 | disposition home or self-care (01) ==
LOC: ERS 17:26
DX: R50.9 Fever, unspecified (principal); Z87.891 Personal history of nicotine dependence
CPT/HCPCS: 36415; 71045; 80053; 81001; 82550; 83605; 83735; 85025; 87040; 87086; 93005

== ENCOUNTER 2023-10-14 16:31 | Inpatient (IN) | payer BC, MEDICARE ==
[2023-10-14 17:52] LABS: #Basophils 0.03 10x3/uL (0.0-0.2); %Basophils 0.3 % (0.0-1.0); %Eosinophils 0.7 % (0.0-10.0); %Lymphocytes 6.1 % (21.0-51.0); %Neutrophils 83.1 % (42.0-75.0); Hematocrit 34.8 % (36.0-47.0); Hemoglobin 10.7 g/dL (12.0-16.0); Mean Corpuscular HGB CONC 30.7 g/dL (32.0-36.0); Mean Corpuscular Hemoglobin 23.5 pg (27.0-31.0); Mean Corpuscular Volume 76.3 fl (78.0-98.0); Mean Platelet Volume 10.3 fL (7.4-10.4); Platelet Count 136 10x3/uL (130-400); RBC Distribution Width 18.4 % (11.5-14.5); Red Blood Cell (RBC) Count 4.56 mill/uL (4.20-5.40)
[2023-10-14 17:58] LABS: INR-International Normal Ratio 1.5; Prothrombin Time 17.9 sec (12.0-14.7)
[2023-10-14 18:05] LABS: ALT (SGPT) 34 U/L (8-55); AST (SGOT) 51 U/L (5-34); Albumin 3.2 g/dL (3.4-4.8); Alkaline Phosphatase 184 U/L (40-110); Anion Gap 13 mmol/L (10-20); BUN (Urea Nitrogen) 20 mg/dL (9.8-20.1); Bilirubin, Total 0.7 mg/dL (0.2-1.2); Calc. Creatinine Clearance 0 mL/min (70-130); Calcium 8.1 mg/dL (7.8-10.44); Carbon Dioxide 25 mmol/L (23-31); Chloride 101 mmol/L (98-107); Estimated GFR 83; Globulin 3.7 g/dL (2.4-3.5); Glucose 123 mg/dL (80-115); Potassium 4.1 mmol/L (3.5-5.1); Protein, Total 6.9 g/dL (5.8-8.1); Sodium 135 mmol/L (136-145)
[2023-10-14 18:07] LABS: Troponin I 0.034 ng/mL (< 0.028)
[2023-10-14] MEDS ORDERED: cefTRIAXone (ROCEPHIN) 2 GM VIAL ONE (18:09)
[2023-10-14] MEDS ORDERED: Sodium Chloride 0.9% 100 ML ONE (18:10)
[2023-10-14 18:37] LABS: Bilirubin Negative (Negative); Blood, Urine Large (Negative); Glucose, Urine (Dipstick) Negative (Negative); Ketone, Urine Negative (Negative); Leukocyte Trace (Negative); Nitrite Negative (Negative); Protein, Urine (Dipstick) 100 mg/dL (Neg-Trace); Specific Gravity, Urine 1.015 (1.005-1.030); Urobilinogen 0.2 mg/dL (Less than 2); pH, Urine 6.5 (5.0-9.0)
[2023-10-14 18:39] LABS: Clarity Cloudy (Clear)
[2023-10-14] MEDS ORDERED: Azithromycin 500 MG VIAL ONE (18:41)
[2023-10-14 18:42] LABS: Bacteria/HPF Rare-Few HPF (None Seen); CAUTI Indications for Culture Alt mental st,lethar; RBC/HPF Greater than 50 HPF (0-3); Squamous Epithelial 0-3 HPF (0-3); WBC/HPF 0-3 HPF (0-3)
[2023-10-14 18:44] LABS: Urine Culture Reflex No No
[2023-10-14 20:30] LABS: Amphetamine Not Detected (NotDetected); Barbiturates Screen Not Detected (NotDetected); Benzodiazepine Screen Detected (NotDetected); Cocaine Metabolite Screen Not Detected (NotDetected); Methadone Not Detected (NotDetected); Methamphetamine Not Detected (NotDetected); Opiate Screen Detected (NotDetected); Oxycodone Screen Not Detected (NotDetected); Phencyclidine (PCP) Not Detected (NotDetected); THC/Cannabinoid Screen Not Detected (NotDetected); Tricyclic Screen Not Detected (NotDetected)
[2023-10-14] MEDS: Acetaminophen 325 MG TAB PO PRN (21:40)
[2023-10-14] MEDS: guaiFENesin/DM ER PO SCH (21:46)
[2023-10-14 21:50] VITALS: BMI 18.8
[2023-10-14 22:03] LABS: Troponin I 0.086 ng/mL (< 0.028)
[2023-10-14] MEDS: Morphine IR Tab 15 MG TAB PO PRN (23:13)
[2023-10-14] MEDS: Enoxaparin 60 MG (0.6 mL) SYRINGE SC SCH (23:15)
[2023-10-15] MEDS: Gabapentin 400 MG CAP PO SCH ×2 (01:32→09:19)
[2023-10-15] MEDS ORDERED: Morphine IR Tab 15 MG TAB PO PRN (02:49)
[2023-10-15 02:51] LABS: Troponin I 0.058 ng/mL (< 0.028)
[2023-10-15 02:55] LABS: #Basophils Less than 0.03 10x3/uL (0.0-0.2); #Eosinphils Less than 0.03 10x3/uL (0.0-0.7); %Basophils 0.2 % (0.0-1.0); %Eosinophils 0.2 % (0.0-10.0); %Lymphocytes 10.8 % (21.0-51.0); %Monocytes 11.6 % (0.0-10.0); %Neutrophils 76.5 % (42.0-75.0); Hematocrit 30.9 % (36.0-47.0); Hemoglobin 9.3 g/dL (12.0-16.0); Mean Corpuscular HGB CONC 30.1 g/dL (32.0-36.0); Mean Corpuscular Hemoglobin 23.5 pg (27.0-31.0); Mean Platelet Volume 9.9 fL (7.4-10.4); Platelet Count 126 10x3/uL (130-400); RBC Distribution Width 18.4 % (11.5-14.5); Red Blood Cell (RBC) Count 3.96 mill/uL (4.20-5.40)
[2023-10-15 03:31] LABS: Anisocytosis SLIGHT = 6-15 cells HPF (0-5); Hypochromia SLIGHT = 6-15 cells HPF (0-5); Microcytosis SLIGHT = 6-15 cells HPF (0-5); Platelet Adequacy Comment Platelets Normal; Poikilocytosis SLIGHT = 6-15 cells HPF (0-5); Polychromasia SLIGHT = 2-3 cells HPF (0-2)
[2023-10-15] MEDS ORDERED: Loperamide HCl 2 MG CAP PO PRN (03:32)
[2023-10-15 05:01] LABS: Anion Gap 14 mmol/L (10-20); BUN (Urea Nitrogen) 14 mg/dL (9.8-20.1); Calc. Creatinine Clearance 66 mL/min (70-130); Calcium 8.1 mg/dL (7.8-10.44); Carbon Dioxide 21 mmol/L (23-31); Chloride 103 mmol/L (98-107); Estimated GFR 88; Glucose 100 mg/dL (80-115); Potassium 3.6 mmol/L (3.5-5.1); Sodium 134 mmol/L (136-145)
[2023-10-15] MEDS: Ondansetron PF 4 MG/2 ML Vial IVP PRN (09:17)
[2023-10-15] MEDS: Morphine ER 15 MG TAB PO SCH (09:17)
[2023-10-15] MEDS: Enoxaparin 60 MG (0.6 mL) SYRINGE SC SCH (09:18)
[2023-10-15] MEDS: Timolol 0.5% Ophth Soln 5 ml Bottle EA EYE SCH (09:20)
[2023-10-15] MEDS: Brimonidine Tartrate 0.2% Ophth Soln 5 ml Bottle EA EYE SCH (10:35)
[2023-10-15] MEDS: Morphine IR Tab 15 MG TAB PO PRN (14:52)
[2023-10-15 16:05] VITALS: BP 140/78; TEMP 97.5
[2023-10-15] MEDS: cefTRIAXone\\ROCEPHIN 2 GM in Sodium Chloride 0.9% 100 ML IVPB SCH (16:24)
[2023-10-15] MEDS ORDERED: Azithromycin 500 MG in Sodium Chloride 0.9% 250 ML 250 ML IVPB SCH (18:00)
[2023-10-15] MEDS ORDERED: Lorazepam 0.5 MG TAB PO PRN (20:00)
[2023-10-15] MEDS ORDERED: NETARSUDIL MESYLAT EA EYE SCH (21:00)
[2023-10-15] MEDS ORDERED: Lorazepam 1 MG TAB PO SCH (21:00)
[2023-10-15] MEDS ORDERED: LATANOPROST EA EYE SCH (21:00)
== END 2023-10-15 19:16 | disposition home or self-care (01) | DRG 91 ==
LOC: ERS 16:31 → 2NO 19:26
PROVIDERS: ADMIT Internal Medicine; ATTEND Internal Medicine
DX: G92.8 Other toxic encephalopathy (principal); J96.01 Acute respiratory failure with hypoxia; K92.1 Melena; E44.0 Moderate protein-calorie malnutrition; C20 Malignant neoplasm of rectum; Z68.1 Body mass index [BMI] 19.9 or less, adult; J20.9 Acute bronchitis, unspecified; D64.9 Anemia, unspecified; G62.9 Polyneuropathy, unspecified; F41.9 Anxiety disorder, unspecified; H40.9 Unspecified glaucoma; K62.7 Radiation proctitis; T45.1X5A Adverse effect of antineoplastic and immunosuppressive drugs, initial encounter; Z88.5 Allergy status to narcotic agent; Z79.01 Long term (current) use of anticoagulants; Z88.1 Allergy status to other antibiotic agents; Z88.8 Allergy status to other drugs, medicaments and biological substances; Z79.899 Other long term (current) drug therapy; Z90.49 Acquired absence of other specified parts of digestive tract; Z98.51 Tubal ligation status; Z98.890 Other specified postprocedural states; Z87.891 Personal history of nicotine dependence; Z86.718 Personal history of other venous thrombosis and embolism
CPT/HCPCS: 36415; 70450; 71045; 71275; 80048; 80053; 80306; 81001; 82248; 82728; 83540; 83550; 83605; 83615; 83880; 84100; 84436; 84443; 84484; 84550; 85025; 85610; 85730; 86850; 86900; 86901; 87040; 93005; 94760; 96361; 96365; 96367; J0456; J0696; J1650; J2405; J3490; Q9967

== ENCOUNTER 2023-11-30 07:15 | Inpatient (IN) | payer BC, MEDICARE ==
[2023-11-30 10:20] LABS: Globulin 3.5 g/dL (2.4-3.5)
[2023-11-30 10:24] LABS: ALT (SGPT) 59 U/L (8-55); AST (SGOT) 53 U/L (5-34); Albumin 1.8 g/dL (3.4-4.8); Alkaline Phosphatase 500 U/L (40-110); Anion Gap 16 mmol/L (10-20); BUN (Urea Nitrogen) 8 mg/dL (9.8-20.1); Calc. Creatinine Clearance 0 mL/min (70-130); Carbon Dioxide 22 mmol/L (23-31); Chloride 104 mmol/L (98-107); Estimated GFR 103; Glucose 90 mg/dL (80-115); Potassium 4.1 mmol/L (3.5-5.1); Protein, Total 5.3 g/dL (5.8-8.1); Sodium 138 mmol/L (136-145)
[2023-11-30 10:28] LABS: #Basophils 0.04 10x3/uL (0.0-0.2); %Basophils 0.5 % (0.0-1.0); %Eosinophils 0.5 % (0.0-10.0); %Lymphocytes 11.4 % (21.0-51.0); %Neutrophils 77.5 % (42.0-75.0); Hematocrit 31.4 % (36.0-47.0); Hemoglobin 9.4 g/dL (12.0-16.0); Mean Corpuscular HGB CONC 29.9 g/dL (32.0-36.0); Mean Corpuscular Hemoglobin 27.1 pg (27.0-31.0); Mean Corpuscular Volume 90.5 fL (78.0-98.0); Mean Platelet Volume 9.6 fL (7.4-10.4); Platelet Count 211 10x3/uL (130-400); RBC Distribution Width 25.2 % (11.5-14.5); Red Blood Cell (RBC) Count 3.47 mill/uL (4.20-5.40)
[2023-11-30] MEDS ORDERED: Ondansetron PF 4 MG/2 ML Vial IVP PRN ×2 (10:56→20:00)
[2023-11-30] MEDS ORDERED: Morphine 2 MG/ML VIAL SLOW IVP PRN (10:56)
[2023-11-30] MEDS ORDERED: Acetaminophen 500 MG TAB ONE (11:44)
[2023-11-30 12:25] LABS: Bilirubin, Total 0.5 mg/dL (0.2-1.2); Calcium 8.7 mg/dL (7.8-10.44)
[2023-11-30] MEDS ORDERED: CEFAZOLIN 2 GM in Sodium Chloride 0.9% 100 ML IVPB SCH (13:30)
[2023-11-30] MEDS ORDERED: fentaNYL 50 mcg/mL 1 mL Vial ONE ×4 (15:27→20:51)
[2023-11-30] MEDS ORDERED: PROPOFOL 20 ML ONE (15:35)
[2023-11-30] MEDS ORDERED: Midazolam HCl 2 mg/2 ml Vial ONE (15:35)
[2023-11-30] MEDS ORDERED: HYDROmorphone 2 MG/ML VIAL ONE (15:35)
[2023-11-30] MEDS ORDERED: Ketamine In 0.9 % NaCl 50 MG/5 ML SYRINGE ONE (15:43)
[2023-11-30] MEDS ORDERED: Sodium Chloride 0.9% 100 ML ONE (15:44)
[2023-11-30] MEDS ORDERED: CEFAZOLIN 2 GM VIAL ONE (15:44)
[2023-11-30] MEDS ORDERED: PHENYLEPHRINE-NS 100 MCG/ML 10 ML SYRINGE ONE (15:55)
[2023-11-30] MEDS ORDERED: Dexamethasone 20 MG/5 ML VIAL ONE (15:55)
[2023-11-30] MEDS ORDERED: Lidocaine 1% PF 5 ML VIAL ONE (15:55)
[2023-11-30] MEDS ORDERED: HYDROmorphone 0.5 MG/0.5 ML SYRINGE ONE ×2 (17:44→18:31)
[2023-11-30] MEDS ORDERED: Promethazine HCl 25 MG/ML VIAL IM PRN (20:00)
[2023-11-30] MEDS ORDERED: diphenhydrAMINE 25 MG CAP PO PRN (20:00)
[2023-11-30] MEDS ORDERED: diphenhydrAMINE 50 MG/ML VIAL IM/IV PRN (20:00)
[2023-11-30] MEDS ORDERED: Fentanyl CADD 100 ML IVPB SCH (20:00)
[2023-11-30] MEDS ORDERED: Naloxone HCl 0.4 mg/ml Vial IV PRN (20:00)
[2023-11-30] MEDS ORDERED: NETARSUDIL MESYLAT EA EYE SCH (21:00)
[2023-11-30] MEDS ORDERED: LATANOPROST EA EYE SCH (21:00)
[2023-11-30] MEDS ORDERED: Famotidine 20 MG TAB PO PRN (21:04)
[2023-11-30] MEDS: Gabapentin 400 MG CAP PO SCH (21:45)
[2023-11-30] MEDS: Lactulose 20 GM (30 mL) UDCUP PO SCH (21:45)
[2023-11-30] MEDS: Senokot S 8.6-50 MG TAB PO SCH (21:45)
[2023-11-30] MEDS: Amitriptyline HCl 25 MG TAB PO SCH (21:46)
[2023-11-30] MEDS: Timolol 0.5% Ophth Soln 5 ml Bottle EA EYE SCH (21:55)
[2023-11-30] MEDS: Brimonidine Tartrate 0.2% Ophth Soln 5 ml Bottle EA EYE SCH (21:55)
[2023-11-30] MEDS: CEFAZOLIN 2 GM in Sodium Chloride 0.9% 100 ML IVPB SCH (23:10)
[2023-12-01 00:47] VITALS: BMI 18.5
[2023-12-01] MEDS: Ketorolac Tromethamine 30 MG (1 mL) VIAL IVP SCH ×2 (04:28→12:29)
[2023-12-01] MEDS ORDERED: traMADol HCl 50 MG TAB PO PRN (04:48)
[2023-12-01] MEDS ORDERED: Prochlorperazine Maleate 5 MG TAB PO PRN (04:49)
[2023-12-01] MEDS: traMADol HCl 50 MG TAB PO SCH (05:24)
[2023-12-01 05:45] LABS: #Basophils 0.07 10x3/uL (0.0-0.2); %Basophils 0.7 % (0.0-1.0); %Eosinophils 0.8 % (0.0-10.0); %Lymphocytes 11.1 % (21.0-51.0); %Neutrophils 71.6 % (42.0-75.0); Hematocrit 29.9 % (36.0-47.0); Hemoglobin 9.1 g/dL (12.0-16.0); Mean Corpuscular HGB CONC 30.4 g/dL (32.0-36.0); Mean Corpuscular Hemoglobin 26.3 pg (27.0-31.0); Mean Corpuscular Volume 86.4 fL (78.0-98.0); Mean Platelet Volume 9.8 fL (7.4-10.4); Platelet Count 291 10x3/uL (130-400); RBC Distribution Width 25.3 % (11.5-14.5); Red Blood Cell (RBC) Count 3.46 mill/uL (4.20-5.40)
[2023-12-01 05:46] LABS: ALT (SGPT) 39 U/L (8-55); AST (SGOT) 30 U/L (5-34); Albumin 1.7 g/dL (3.4-4.8); Alkaline Phosphatase 427 U/L (40-110); Anion Gap 16 mmol/L (10-20); BUN (Urea Nitrogen) 9 mg/dL (9.8-20.1); Bilirubin, Direct 0.4 mg/dL (0.1-0.3); Bilirubin, Total 0.6 mg/dL (0.2-1.2); Calc. Creatinine Clearance 91 mL/min (70-130); Calcium 8.2 mg/dL (7.8-10.44); Carbon Dioxide 23 mmol/L (23-31); Chloride 103 mmol/L (98-107); Estimated GFR 104; Glucose 73 mg/dL (80-115); Magnesium 1.6 mg/dL (1.6-2.6); Protein, Total 4.8 g/dL (5.8-8.1); Sodium 138 mmol/L (136-145)
[2023-12-01 05:48] LABS: Phosphorus 4.2 mg/dL (2.3-4.7)
[2023-12-01 06:41] LABS: Anisocytosis SLIGHT = 6-15 cells HPF (0-5); Hypochromia SLIGHT = 6-15 cells HPF (0-5); Platelet Adequacy Comment Platelets Normal; Polychromasia SLIGHT = 2-3 cells HPF (0-2)
[2023-12-01] MEDS ORDERED: IBUPROFEN 200 MG PO PRN (08:16)
[2023-12-01] MEDS ORDERED: Amlodipine 5 MG TAB PO PRN ×2 (08:16→08:27)
[2023-12-01] MEDS ORDERED: [UNRECOGNIZED DRUG - OTHER] PO PRN (08:16)
[2023-12-01] MEDS ORDERED: Acetaminophen 500 MG TAB PO PRN (08:16)
[2023-12-01] MEDS ORDERED: Loperamide HCl 2 MG CAP PO PRN (08:16)
[2023-12-01] MEDS ORDERED: Ondansetron ODT 8 MG TAB SL PRN ×2 (08:16→08:28)
[2023-12-01] MEDS ORDERED: [UNRECOGNIZED DRUG - OTHER] PO PRN (08:29)
[2023-12-01] MEDS: Furosemide 20 MG TAB PO SCH (08:56)
[2023-12-01] MEDS: Morphine ER 30 MG TAB PO SCH (08:59)
[2023-12-01] MEDS ORDERED: Non-Formulary Item 1 EACH (Rivaroxaban [Xarelto] 20 MG Tablet) PO SCH (09:00)
[2023-12-01] MEDS: Polyethylene Glycol 3350 17 GM Packet PO SCH (09:12)
[2023-12-01] MEDS: Rivaroxaban 10 MG TAB PO SCH (09:27)
[2023-12-01] MEDS: Morphine IR Tab 15 MG TAB PO PRN (10:15)
[2023-12-01] MEDS: Lorazepam 1 MG TAB PO PRN (20:44)
[2023-12-02 07:37] LABS: Hematocrit 25.7 % (36.0-47.0); Hemoglobin 7.8 g/dL (12.0-16.0)
[2023-12-02] MEDS: Rivaroxaban 10 MG TAB PO SCH (10:21)
[2023-12-02] MEDS: Famotidine 20 MG TAB PO SCH (10:25)
[2023-12-02] MEDS: Ascorbic Acid 500 mg Chewable Tablet PO SCH (10:25)
[2023-12-02] MEDS ORDERED: Magnevist 469MG/ML 20 ML VIAL ONE (13:20)
[2023-12-02] MEDS: Ferrous Sulfate 325 MG TAB PO SCH (17:22)
[2023-12-03 05:44] LABS: Hematocrit 23.8 % (36.0-47.0); Hemoglobin 7.4 g/dL (12.0-16.0)
[2023-12-03] MEDS ORDERED: Amlodipine 5 MG TAB PO PRN (08:27)
[2023-12-03] MEDS: Rivaroxaban 10 MG TAB PO SCH (09:05)
[2023-12-03] MEDS: Aspirin 81 mg Enteric Coated Tablet PO SCH (09:08)
[2023-12-03] MEDS: Amlodipine 5 MG TAB PO SCH (09:13)
[2023-12-03] MEDS: Ibuprofen 200 MG TAB PO PRN (15:50)
[2023-12-04] MEDS: Furosemide 20 MG TAB PO SCH (11:02)
[2023-12-05] MEDS: Furosemide 20 MG TAB PO SCH (08:57)
[2023-12-06 02:47] VITALS: BP 125/81; TEMP 98.5
== END 2023-12-05 20:50 | DRG 481 ==
LOC: ERS 07:15 → SURG A 11:01
PROVIDERS: ADMIT Surgery; ATTEND Surgery
PROC: 0QS604Z Reposition Right Upper Femur with Internal Fixation Device, Open Approach (ICD-10-PCS; principal; 2023-11-30)
DX: S72.141A Displaced intertrochanteric fracture of right femur, initial encounter for closed fracture (principal); C19 Malignant neoplasm of rectosigmoid junction; C79.11 Secondary malignant neoplasm of bladder; I82.511 Chronic embolism and thrombosis of right femoral vein; E44.0 Moderate protein-calorie malnutrition; Z68.1 Body mass index [BMI] 19.9 or less, adult; D62 Acute posthemorrhagic anemia; C78.7 Secondary malignant neoplasm of liver and intrahepatic bile duct; G62.9 Polyneuropathy, unspecified; R74.01 Elevation of levels of liver transaminase levels; M21.371 Foot drop, right foot; K80.20 Calculus of gallbladder without cholecystitis without obstruction; W01.0XXA Fall on same level from slipping, tripping and stumbling without subsequent striking against object, initial encounter; Z98.890 Other specified postprocedural states; Z79.899 Other long term (current) drug therapy; Z90.49 Acquired absence of other specified parts of digestive tract; Z87.891 Personal history of nicotine dependence
CPT/HCPCS: 36415; 71045; 72192; 74183; 76705; 80048; 80053; 80076; 82977; 83735; 84100; 85014; 85018; 85025; 86850; 86900; 86901; 93005; A9579; C1713; J1100; J1170; J1885; J2250; J2704; J3010; J3490

== ENCOUNTER 2024-01-12 17:00 | Inpatient (IN) | payer BC, MEDICARE ==
[2024-01-13] MEDS ORDERED: Vancomycin 1 GM/200 ML (FROZEN) BAG ONE (07:49)
[2024-01-13] MEDS ORDERED: CEFAZOLIN 2 GM VIAL ONE (07:49)
[2024-01-13] MEDS ORDERED: Sodium Chloride 0.9% 100 ML ONE (07:49)
[2024-01-13] MEDS ORDERED: PHENYLEPHRINE-NS 100 MCG/ML 10 ML SYRINGE ONE (08:44)
[2024-01-13] MEDS ORDERED: Rocuronium Bromide 10 MG/ML (10ML VIAL) ONE (08:44)
[2024-01-13] MEDS ORDERED: PROPOFOL 200 MG/20 ML VIAL ONE (08:44)
[2024-01-13] MEDS ORDERED: Lidocaine 1% PF 5 ML VIAL ONE (08:44)
[2024-01-13] MEDS ORDERED: Dexamethasone 20 MG/5 ML VIAL ONE (08:44)
[2024-01-13] MEDS ORDERED: Ondansetron PF 4 MG/2 ML Vial IVP PRN (11:10)
[2024-01-13] MEDS ORDERED: Prochlorperazine Maleate 5 MG TAB PO PRN (11:14)
[2024-01-13] MEDS ORDERED: Amlodipine 5 MG TAB PO PRN (11:14)
[2024-01-13] MEDS ORDERED: Loperamide HCl 2 MG CAP PO PRN (11:14)
[2024-01-13] MEDS ORDERED: Famotidine 20 MG TAB PO PRN (11:14)
[2024-01-13] MEDS ORDERED: Communication Order-Pharmacy FS SCH (11:15)
[2024-01-13] MEDS ORDERED: Ondansetron ODT 4 MG TAB PO PRN (11:29)
[2024-01-13] MEDS ORDERED: Promethazine HCl 25 MG/ML VIAL ONE (11:31)
[2024-01-13] MEDS ORDERED: Fentanyl 250 MCG/5 ML VIAL ONE (11:31)
[2024-01-13] MEDS ORDERED: Ondansetron HCl/PF 4 MG/2 ML Vial IVP PRN (12:15)
[2024-01-13] MEDS ORDERED: Promethazine HCl 25 MG/ML VIAL IM PRN (12:15)
[2024-01-13] MEDS ORDERED: fentaNYL 50 mcg/mL 1 mL Vial ONE (12:39)
[2024-01-13] MEDS: Morphine IR Tab 15 MG TAB PO PRN (13:36)
[2024-01-13] MEDS: Gabapentin 400 MG CAP PO SCH (15:39)
[2024-01-13 16:53] VITALS: BMI 18.4
[2024-01-13] MEDS: Ibuprofen 200 MG TAB PO PRN (18:37)
[2024-01-13] MEDS: CEFAZOLIN 2 GM in Sodium Chloride 0.9% 100 ML IVPB SCH (18:38)
[2024-01-13] MEDS ORDERED: NETARSUDIL MESYLAT EA EYE SCH (21:00)
[2024-01-13] MEDS ORDERED: LATANOPROST EA EYE SCH (21:00)
[2024-01-13] MEDS: Amitriptyline HCl 25 MG TAB PO SCH (21:30)
[2024-01-13] MEDS: Aspirin 81 mg Enteric Coated Tablet PO SCH (21:30)
[2024-01-13] MEDS: Morphine ER 30 MG TAB PO SCH (21:30)
[2024-01-13] MEDS: Lorazepam 1 MG TAB PO SCH (21:31)
[2024-01-13] MEDS: Brimonidine Tartrate 0.2% Ophth Soln 5 ml Bottle EA EYE SCH (21:33)
[2024-01-13] MEDS: Timolol 0.5% Ophth Soln 5 ml Bottle EA EYE SCH (21:33)
[2024-01-14 05:56] LABS: #Basophils 0.04 10x3/uL (0.0-0.2); %Basophils 0.5 % (0.0-1.0); %Lymphocytes 23.3 % (21.0-51.0); %Monocytes 15.7 % (0.0-10.0); %Neutrophils 59.1 % (42.0-75.0); Hemoglobin 7.7 g/dL (12.0-16.0); Mean Corpuscular HGB CONC 30.8 g/dL (32.0-36.0); Mean Corpuscular Hemoglobin 27.7 pg (27.0-31.0); Mean Corpuscular Volume 89.9 fL (78.0-98.0); Mean Platelet Volume 9.8 fL (7.4-10.4); Platelet Count 187 10x3/uL (130-400); RBC Distribution Width 15.4 % (11.5-14.5); Red Blood Cell (RBC) Count 2.78 mill/uL (4.20-5.40)
[2024-01-14] MEDS: Ferrous Sulfate 325 MG TAB PO SCH (07:47)
[2024-01-14] MEDS: Furosemide 20 MG TAB PO SCH (07:48)
[2024-01-14] MEDS ORDERED: Aspirin 81 mg Enteric Coated Tablet PO SCH (09:00)
[2024-01-14 18:32] LABS: Anion Gap 14 mmol/L (10-20); BUN (Urea Nitrogen) 14 mg/dL (9.8-20.1); Calc. Creatinine Clearance 68 mL/min (70-130); Carbon Dioxide 26 mmol/L (23-31); Chloride 100 mmol/L (98-107); Estimated GFR 94; Glucose 140 mg/dL (80-115); Potassium 3.8 mmol/L (3.5-5.1); Sodium 136 mmol/L (136-145)
[2024-01-15] MEDS: Sodium Chloride 0.9% 1,000 ML IV SCH (00:29)
[2024-01-15 06:35] VITALS: TEMP 99.6
[2024-01-15 07:52] VITALS: BP 99/65
[2024-01-15 09:27] LABS: #Basophils Less than 0.03 10x3/uL (0.0-0.2); %Basophils 0.3 % (0.0-1.0); %Eosinophils 1.2 % (0.0-10.0); %Lymphocytes 16.3 % (21.0-51.0); %Monocytes 15.4 % (0.0-10.0); %Neutrophils 66.4 % (42.0-75.0); Hematocrit 23.4 % (36.0-47.0); Hemoglobin 7.2 g/dL (12.0-16.0); Mean Corpuscular HGB CONC 30.8 g/dL (32.0-36.0); Mean Corpuscular Hemoglobin 27.6 pg (27.0-31.0); Mean Corpuscular Volume 89.7 fL (78.0-98.0); Mean Platelet Volume 9.9 fL (7.4-10.4); Platelet Count 162 10x3/uL (130-400); RBC Distribution Width 15.5 % (11.5-14.5); Red Blood Cell (RBC) Count 2.61 mill/uL (4.20-5.40)
== END 2024-01-15 14:55 | disposition home or self-care (01) | DRG 522 ==
LOC: SURG A 01-13 07:00 → EDSTATUS 01-13 17:00
PROVIDERS: ADMIT Orthopaedic Surgery; ATTEND Internal Medicine
PROC: 0SRR0J9 Replacement of Right Hip Joint, Femoral Surface with Synthetic Substitute, Cemented, Open Approach (ICD-10-PCS; principal; 2024-01-13)
PROC: 0QS604Z Reposition Right Upper Femur with Internal Fixation Device, Open Approach (ICD-10-PCS; 2024-01-13)
DX: S72.011K Unspecified intracapsular fracture of right femur, subsequent encounter for closed fracture with nonunion (principal); S42.342D Displaced spiral fracture of shaft of humerus, left arm, subsequent encounter for fracture with routine healing; S72.8X1D Other fracture of right femur, subsequent encounter for closed fracture with routine healing; Z98.890 Other specified postprocedural states; Z87.891 Personal history of nicotine dependence; E78.2 Mixed hyperlipidemia; M85.80 Other specified disorders of bone density and structure, unspecified site; G89.29 Other chronic pain; R09.02 Hypoxemia
CPT/HCPCS: 36415; 72170; 80048; 85025; C1713; C1776; C1889; J1100; J2550; J2704; J3010; J3370-JW; J3490; J7050

== ENCOUNTER 2024-01-25 13:49 | Outpatient (CLI) | payer BC, MEDICARE | END 2024-01-25 13:50 | disposition home or self-care (01) | LOC: ULT 13:49 | PROVIDERS: ATTEND Physician Assistant Surgical | DX: S72.8X1D Other fracture of right femur, subsequent encounter for closed fracture with routine healing (principal); I82.401 Acute embolism and thrombosis of unspecified deep veins of right lower extremity ==

== ENCOUNTER 2024-01-25 15:27 | Inpatient (IN) | payer BC ==
[2024-01-25] MEDS ORDERED: Enoxaparin 30 MG (0.3 mL) SYRINGE ONE (17:44)
[2024-01-25 18:09] LABS: #Basophils 0.04 10x3/uL (0.0-0.2); %Basophils 0.4 % (0.0-1.0); %Eosinophils 3.1 % (0.0-10.0); %Lymphocytes 30.3 % (21.0-51.0); %Monocytes 10.3 % (0.0-10.0); %Neutrophils 55.1 % (42.0-75.0); Hematocrit 30.8 % (36.0-47.0); Mean Corpuscular HGB CONC 29.2 g/dL (32.0-36.0); Mean Corpuscular Hemoglobin 28.2 pg (27.0-31.0); Mean Corpuscular Volume 96.6 fL (78.0-98.0); Mean Platelet Volume 9.8 fL (7.4-10.4); Platelet Count 253 10x3/uL (130-400); RBC Distribution Width 19.3 % (11.5-14.5); Red Blood Cell (RBC) Count 3.19 mill/uL (4.20-5.40)
[2024-01-25 18:23] LABS: PTT 26.4 sec (22.9-36.1)
[2024-01-25 18:27] LABS: Prothrombin Time 13.2 sec (12.0-14.7)
[2024-01-25 18:31] LABS: ALT (SGPT) 13 U/L (8-55); AST (SGOT) 58 U/L (5-34); Albumin 2.6 g/dL (3.4-4.8); Alkaline Phosphatase 175 U/L (40-110); Anion Gap 12 mmol/L (10-20); BUN (Urea Nitrogen) 13 mg/dL (9.8-20.1); Bilirubin, Total 0.6 mg/dL (0.2-1.2); Calc. Creatinine Clearance 0 mL/min (70-130); Calcium 8.6 mg/dL (7.8-10.44); Carbon Dioxide 26 mmol/L (23-31); Chloride 100 mmol/L (98-107); D-Dimer Test 4.77 mcg/mL (0.27-0.43); Estimated GFR 95; Globulin 4.2 g/dL (2.4-3.5); Glucose 99 mg/dL (80-115); Potassium 5.1 mmol/L (3.5-5.1); Protein, Total 6.8 g/dL (5.8-8.1); Sodium 133 mmol/L (136-145)
[2024-01-25 18:35] LABS: Troponin I Less than 0.010 ng/mL (< 0.028)
[2024-01-25] MEDS ORDERED: Acetaminophen 650 MG Suppository PR PRN (19:41)
[2024-01-25] MEDS ORDERED: Ondansetron ODT 4 MG TAB PO PRN (19:41)
[2024-01-25] MEDS ORDERED: Acetaminophen 325 MG TAB PO PRN (19:41)
[2024-01-25] MEDS ORDERED: Communication Order-Pharmacy FS SCH (19:43)
[2024-01-25] MEDS ORDERED: Ketorolac Tromethamine 30 MG (1 mL) VIAL ONE (20:09)
[2024-01-25 21:20] LABS: Bacteria/HPF None Seen HPF (None Seen); Bilirubin Negative (Negative); Blood, Urine 3+ (Negative); CAUTI Indications for Culture Dysuria,urgency,freq; Calcium Oxalate Crystals 2+ HPF (None Seen); Clarity Clear (Clear); Glucose, Urine (Dipstick) Normal (Negative); Ketone, Urine Negative (Negative); Leukocyte 25 Leu/uL (Negative); Nitrite Negative (Negative); Protein, Urine (Dipstick) 50 mg/dL (Neg-Trace); RBC/HPF Greater than 50 HPF (0-3); Specific Gravity, Urine 1.019 (1.002-1.036); Squamous Epithelial 0-3 HPF (0-3); Urobilinogen Normal mg/dL (Less than 2); pH, Urine 7.5 (5.0-9.0)
[2024-01-25 21:23] LABS: Urine Culture Reflex Yes Yes
[2024-01-25] MEDS: Ketorolac Tromethamine 30 MG (1 mL) VIAL IVP SCH (22:39)
[2024-01-25] MEDS: Gabapentin 400 MG CAP PO SCH (22:46)
[2024-01-25] MEDS: Amitriptyline HCl 25 MG TAB PO SCH (22:46)
[2024-01-25] MEDS: Morphine ER 30 MG TAB PO SCH (22:47)
[2024-01-25 23:07] VITALS: BMI 19.5
[2024-01-26] MEDS ORDERED: Lorazepam 1 MG TAB PO PRN (00:15)
[2024-01-26] MEDS: Sodium Chloride 0.9% 1,000 ML IV SCH (00:24)
[2024-01-26] MEDS: Enoxaparin 30 MG (0.3 mL) SYRINGE SC SCH (00:24)
[2024-01-26] MEDS: Morphine IR Tab 15 MG TAB PO PRN ×2 (05:28→13:02)
[2024-01-26] MEDS: Enoxaparin 80 MG (0.8 mL) SYRINGE SC SCH (07:36)
[2024-01-26] MEDS ORDERED: CEFAZOLIN 2 GM in Sodium Chloride 0.9% 100 ML IVPB SCH (08:00)
[2024-01-26 08:36] LABS: #Basophils 0.04 10x3/uL (0.0-0.2); %Basophils 0.4 % (0.0-1.0); %Eosinophils 2.7 % (0.0-10.0); %Lymphocytes 29.9 % (21.0-51.0); %Monocytes 11.2 % (0.0-10.0); Hematocrit 30.6 % (36.0-47.0); Hemoglobin 8.9 g/dL (12.0-16.0); Mean Corpuscular HGB CONC 29.1 g/dL (32.0-36.0); Mean Corpuscular Hemoglobin 28.1 pg (27.0-31.0); Mean Corpuscular Volume 96.5 fL (78.0-98.0); Mean Platelet Volume 9.7 fL (7.4-10.4); Platelet Count 266 10x3/uL (130-400); RBC Distribution Width 19.7 % (11.5-14.5); Red Blood Cell (RBC) Count 3.17 mill/uL (4.20-5.40)
[2024-01-26 08:50] LABS: Anion Gap 13 mmol/L (10-20); BUN (Urea Nitrogen) 11 mg/dL (9.8-20.1); Calc. Creatinine Clearance 76 mL/min (70-130); Calcium 8.6 mg/dL (7.8-10.44); Carbon Dioxide 23 mmol/L (23-31); Chloride 105 mmol/L (98-107); Estimated GFR 98; Glucose 89 mg/dL (80-115); Potassium 4.2 mmol/L (3.5-5.1); Sodium 137 mmol/L (136-145)
[2024-01-26] MEDS ORDERED: Non-Formulary Item 1 EACH (Brimonidine Tartrate/Timolol [Brimonidine-Timolol 0.2%-0.5%] 5 EA EYE SCH (09:00)
[2024-01-26] MEDS: Furosemide 20 MG TAB PO SCH (09:05)
[2024-01-26] MEDS: Ferrous Sulfate 325 MG TAB PO SCH (09:05)
[2024-01-26] MEDS: Enoxaparin 60 MG (0.6 mL) SYRINGE SC SCH (09:06)
[2024-01-26] MEDS ORDERED: fentaNYL 50 mcg/mL 1 mL Vial ONE (09:27)
[2024-01-26] MEDS: Brimonidine Tartrate 0.2% Ophth Soln 5 ml Bottle EA EYE SCH (10:08)
[2024-01-26] MEDS: Timolol 0.5% Ophth Soln 5 ml Bottle EA EYE SCH (10:09)
[2024-01-26] MEDS: Ondansetron PF 4 MG/2 ML Vial IVP PRN (10:10)
[2024-01-26] MEDS: Morphine 4 MG/ML VIAL SLOW IVP PRN (11:37)
[2024-01-26] MEDS ORDERED: Iopamidol 370 76% 100 ML VIAL ONE (15:37)
[2024-01-26 17:40] VITALS: BP 138/77; TEMP 98.2
[2024-01-26] MEDS ORDERED: LATANOPROST EA EYE SCH (21:00)
[2024-01-26] MEDS ORDERED: NETARSUDIL MESYLAT EA EYE SCH (21:00)
== END 2024-01-26 17:43 | disposition home or self-care (01) | DRG 300 ==
LOC: ERS 15:27 → MSONC 19:02
PROVIDERS: ADMIT Hospitalist; ATTEND Family Medicine
PROC: 06H03DZ Insertion of Intraluminal Device into Inferior Vena Cava, Percutaneous Approach (ICD-10-PCS; principal; 2024-01-26)
DX: I82.401 Acute embolism and thrombosis of unspecified deep veins of right lower extremity (principal); C19 Malignant neoplasm of rectosigmoid junction; C79.11 Secondary malignant neoplasm of bladder; D64.9 Anemia, unspecified; R31.0 Gross hematuria; G89.3 Neoplasm related pain (acute) (chronic); Z88.1 Allergy status to other antibiotic agents; Z88.5 Allergy status to narcotic agent; Z88.8 Allergy status to other drugs, medicaments and biological substances; Z79.899 Other long term (current) drug therapy; Z79.1 Long term (current) use of non-steroidal anti-inflammatories (NSAID); Z79.82 Long term (current) use of aspirin; Z90.49 Acquired absence of other specified parts of digestive tract; Z92.25 Personal history of immunosuppression therapy; S72.8X1D Other fracture of right femur, subsequent encounter for closed fracture with routine healing
CPT/HCPCS: 36415; 37191; 71275; 80048; 80053; 81001; 83880; 84484; 85025; 85379; 85610; 85730; 87086; 93005; 96372; 96374; C1769; C1880; C1894; J1650; J1885; J2270; J2405; J3010; J7050; Q9967

== ENCOUNTER 2024-02-21 10:16 | Outpatient (CLI) | payer BC ==
[2024-02-21 11:15] LABS: Hemoglobin 11.2 g/dL (12.0-15.5); Mean Corpuscular HGB CONC 29.5 g/dL (32.0-36.0); Mean Corpuscular Hemoglobin 26.3 pg (27.0-33.0); Mean Corpuscular Volume 89.2 fL (81.6-98.3); Mean Platelet Volume 8.9 fL (7.4-10.4); Platelet Count 278 10x3/uL (150-450); RBC Distribution Width 17.1 % (11.5-14.5); Red Blood Cell (RBC) Count 4.26 10x6/uL (3.90-5.03); White Blood Cell (WBC) Count 9.5 10x3/uL (3.5-10.5)
== END 2024-02-21 10:17 | disposition home or self-care (01) ==
LOC: LABBT 10:16
PROVIDERS: ATTEND Urology
DX: Z01.812 Encounter for preprocedural laboratory examination (principal); N13.30 Unspecified hydronephrosis; Z96.0 Presence of urogenital implants
CPT/HCPCS: 85027; 87077; 87086; 87186

== ENCOUNTER 2024-04-16 08:29 | Day surgery (SDC) | payer BC ==
[2024-04-10 14:21] VITALS: BMI 20.3
[2024-04-16] MEDS ORDERED: PROPOFOL 20 ML ONE (10:45)
[2024-04-16] MEDS ORDERED: Midazolam HCl 2 mg/2 ml Vial ONE (10:45)
[2024-04-16] MEDS ORDERED: fentaNYL PF 100 MCG/2 ML SYRINGE ONE (10:45)
[2024-04-16] MEDS ORDERED: Iopamidol 30 ML ONE (10:59)
[2024-04-16] MEDS ORDERED: LevoFLOXacin D5W 500 mg (100 mL) BAG ONE (11:20)
[2024-04-16] MEDS ORDERED: Lidocaine 1% PF 5 ML VIAL ONE (11:35)
[2024-04-16] MEDS ORDERED: Dexamethasone 20 MG/5 ML VIAL ONE (11:55)
[2024-04-16] MEDS ORDERED: Ondansetron PF 4 MG/2 ML Vial ONE (11:55)
[2024-04-16] MEDS ORDERED: fentaNYL 50 mcg/mL 1 mL Vial ONE ×2 (13:04→13:14)
[2024-04-16] MEDS ORDERED: Morphine 2 MG/ML VIAL ONE (13:54)
== END 2024-04-16 15:08 | disposition home or self-care (01) ==
LOC: SDC 08:29
PROVIDERS: ATTEND Urology
PROC: 0T768DZ Dilation of Right Ureter with Intraluminal Device, Via Natural or Artificial Opening Endoscopic (ICD-10-PCS; principal; 2024-04-16)
DX: N13.2 Hydronephrosis with renal and ureteral calculous obstruction (principal); N30.01 Acute cystitis with hematuria; E78.00 Pure hypercholesterolemia, unspecified; Z98.890 Other specified postprocedural states; Z98.51 Tubal ligation status; Z88.8 Allergy status to other drugs, medicaments and biological substances; Z88.1 Allergy status to other antibiotic agents; Z88.5 Allergy status to narcotic agent
CPT/HCPCS: 74420; C2617; J1100; J1956; J2250; J2272; J2405; J2704; J3010; Q9967

== ENCOUNTER 2024-05-31 11:38 | Inpatient (IN) | payer BC, MEDICARE ==
[2024-05-31] MEDS ORDERED: Promethazine HCl 25 MG/ML VIAL ONE (12:38)
[2024-05-31 12:54] LABS: #Basophils 0.03 10x3/uL (0.0-0.2); #Eosinophils Less than 0.03 10x3/uL (0.0-0.7); %Basophils 0.4 % (0.0-1.0); %Lymphocytes 5.4 % (21.0-51.0); %Monocytes 15.6 % (0.0-10.0); Hematocrit 38.3 % (36.0-47.0); Hemoglobin 12.2 g/dL (12.0-16.0); Mean Corpuscular HGB CONC 31.9 g/dL (32.0-36.0); Mean Corpuscular Volume 81.7 fL (78.0-98.0); Mean Platelet Volume 9.3 fL (7.4-10.4); Platelet Count 418 10x3/uL (130-400); RBC Distribution Width 23.5 % (11.5-14.5); Red Blood Cell (RBC) Count 4.69 mill/uL (4.20-5.40)
[2024-05-31 13:13] LABS: ALT (SGPT) 14 U/L (8-55); AST (SGOT) 29 U/L (5-34); Albumin 2.9 g/dL (3.4-4.8); Alkaline Phosphatase 242 U/L (40-110); Anion Gap 25 mmol/L (10-20); BUN (Urea Nitrogen) 14 mg/dL (9.8-20.1); Bilirubin, Total 0.6 mg/dL (0.2-1.2); Calc. Creatinine Clearance 0 mL/min (70-130); Calcium 9.4 mg/dL (7.8-10.44); Carbon Dioxide 39 mmol/L (23-31); Chloride 72 mmol/L (98-107); Estimated GFR 89; Globulin 3.9 g/dL (2.4-3.5); Glucose 137 mg/dL (80-115); Lipase 7 U/L (8-78); Magnesium 2.5 mg/dL (1.6-2.6); Potassium 3.2 mmol/L (3.5-5.1); Protein, Total 6.8 g/dL (5.8-8.1); Sodium 133 mmol/L (136-145)
[2024-05-31 13:15] LABS: Troponin I Less than 0.010 ng/mL (< 0.028)
[2024-05-31] MEDS ORDERED: Morphine 4 MG/ML VIAL ONE ×2 (13:42→14:53)
[2024-05-31] MEDS ORDERED: Iopamidol-370 76% 500 ML MDV (1 ML CHARGE) ONE (14:10)
[2024-05-31 16:27] LABS: Bilirubin Negative (Negative); Blood, Urine 3+ (Negative); CAUTI Indications for Culture Dysuria,urgency,freq; Clarity Turbid (Clear); Glucose, Urine (Dipstick) Normal (Negative); Ketone, Urine 60 mg/dL (Negative); Leukocyte 75 Leu/uL (Negative); Nitrite Negative (Negative); Protein, Urine (Dipstick) 200 mg/dL (Neg-Trace); RBC/HPF Greater than 50 HPF (0-3); Specific Gravity, Urine 1.046 (1.002-1.036); Squamous Epithelial 0-3 HPF (0-3); Urobilinogen Normal mg/dL (Less than 2)
[2024-05-31 16:28] LABS: Bacteria/HPF Rare-Few HPF (None Seen)
[2024-05-31 16:30] LABS: Urine Culture Reflex No No
[2024-05-31 19:52] VITALS: BMI 19.5
[2024-05-31] MEDS: Sodium Chloride 0.9% 1,000 ML IV SCH (20:19)
[2024-05-31] MEDS: HYDROmorphone 0.5 MG/0.5 ML SYRINGE SLOW IVP SCH (20:20)
[2024-05-31] MEDS: Pantoprazole 40 MG VIAL IVP SCH (20:26)
[2024-05-31] MEDS: Potassium Chloride 20 MEQ in Premix 1 BAG IVPB SCH (20:26)
[2024-05-31 20:32] LABS: Lactic Acid 2.53 mmol/L (0.5-2.2)
[2024-05-31] MEDS: Ketorolac Tromethamine 30 MG (1 mL) VIAL IVP PRN (22:10)
[2024-05-31] MEDS: Morphine 4 MG/ML VIAL SLOW IVP PRN (23:44)
[2024-05-31] MEDS: FLU (Fluarix Triv) TS24-25(6MOS UP)/PF 45 MCG/0.5 ML Syringe IM ONE (23:45)
[2024-05-31] MEDS: Lactated Ringer's 1,000 ML IV SCH (23:45)
[2024-05-31] MEDS: Potassium Chloride 40 MEQ in Premix 1 BAG IVPB SCH (23:54)
[2024-06-01 04:41] LABS: Hematocrit 31.5 % (36.0-47.0); Hemoglobin 9.8 g/dL (12.0-16.0); Mean Corpuscular HGB CONC 31.1 g/dL (32.0-36.0); Mean Corpuscular Volume 83.6 fL (78.0-98.0); Mean Platelet Volume 9.3 fL (7.4-10.4); Platelet Count 375 10x3/uL (130-400); RBC Distribution Width 23.8 % (11.5-14.5); Red Blood Cell (RBC) Count 3.77 mill/uL (4.20-5.40)
[2024-06-01 04:45] LABS: INR-International Normal Ratio 2.3; PTT 38.8 sec (22.9-36.1); Prothrombin Time 25.4 sec (12.0-14.7)
[2024-06-01 04:55] LABS: Anion Gap 17 mmol/L (10-20); BUN (Urea Nitrogen) 14 mg/dL (9.8-20.1); Calc. Creatinine Clearance 72 mL/min (70-130); Calcium 7.6 mg/dL (7.8-10.44); Carbon Dioxide 37 mmol/L (23-31); Chloride 85 mmol/L (98-107); Estimated GFR 93; Glucose 83 mg/dL (80-115); Magnesium 2.2 mg/dL (1.6-2.6); Phosphorus 2.3 mg/dL (2.3-4.7); Potassium 3.1 mmol/L (3.5-5.1); Sodium 136 mmol/L (136-145)
[2024-06-01 05:15] LABS: Anisocytosis MODERATE=16-30 cells HPF (0-5); Band 16 % (5-11); Dohle Bodies SLIGHT; Elliptocytes SLIGHT = 2-5 cells HPF (0-1); Eosinophils 1 % (0-10); Hypochromia SLIGHT = 6-15 cells HPF (0-5); Lymphocytes 4 % (21-51); Macrocytosis SLIGHT = 6-15 cells HPF (0-5); Metamyelocyte 1 % (0-0); Monocytes 9 % (0-10); Neutrophil 68 % (42-75); Ovalocytes SLIGHT = 2-5 cells HPF (0-1); Platelet Adequacy Comment Platelets Normal; Polychromasia SLIGHT = 2-3 cells HPF (0-2); Target Cells SLIGHT = 2-5 cells HPF (0-1); Tear Drops SLIGHT = 2-5 cells HPF (0-1); Toxic Granulation SLIGHT
[2024-06-01] MEDS: Ondansetron PF 4 MG/2 ML Vial IVP PRN (05:20)
[2024-06-01] MEDS: Enoxaparin 40 MG (0.4 mL) SYRINGE SC SCH (09:59)
[2024-06-01 12:47] VITALS: BMI 19.5
[2024-06-01] MEDS: LevoFLOXacin 750 mg/D5W 750 MG in Premix 1 BAG IVPB SCH (13:14)
[2024-06-01] MEDS: Potassium Chloride 40 MEQ in Premix 1 BAG IVPB SCH (13:15)
[2024-06-01] MEDS: Morphine 4 MG/ML VIAL SLOW IVP SCH (15:19)
[2024-06-01] MEDS: fentaNYL 100 mcg/hour Patch TD SCH (16:48)
[2024-06-01] MEDS: AA 4.25 %/CALCIUM/LYTES/D5W 2,000 ML IV SCH (18:11)
[2024-06-01 18:25] LABS: Anion Gap 18 mmol/L (10-20); BUN (Urea Nitrogen) 11 mg/dL (9.8-20.1); Calc. Creatinine Clearance 76 mL/min (70-130); Calcium 8.1 mg/dL (7.8-10.44); Carbon Dioxide 31 mmol/L (23-31); Chloride 90 mmol/L (98-107); Estimated GFR 98; Glucose 74 mg/dL (80-115); Potassium 4.2 mmol/L (3.5-5.1); Sodium 135 mmol/L (136-145)
[2024-06-01] MEDS: Gabapentin 300 MG CAP PO SCH ×2 (19:30→19:45)
[2024-06-01] MEDS: carBAMazepine 100 MG/5 ML UDCUP PER TUBE SCH (21:26)
[2024-06-01] MEDS: Lorazepam 2 MG/ML VIAL SLOW IVP PRN (23:14)
[2024-06-02 05:14] LABS: #Basophils Less than 0.03 10x3/uL (0.0-0.2); #Eosinophils Less than 0.03 10x3/uL (0.0-0.7); %Basophils 0.2 % (0.0-1.0); %Eosinophils 0.4 % (0.0-10.0); %Lymphocytes 8.7 % (21.0-51.0); %Monocytes 19.2 % (0.0-10.0); Hematocrit 30.4 % (36.0-47.0); Hemoglobin 9.3 g/dL (12.0-16.0); Mean Corpuscular HGB CONC 30.6 g/dL (32.0-36.0); Mean Corpuscular Hemoglobin 25.8 pg (27.0-31.0); Mean Corpuscular Volume 84.4 fL (78.0-98.0); Mean Platelet Volume 8.6 fL (7.4-10.4); Platelet Count 309 10x3/uL (130-400); RBC Distribution Width 23.9 % (11.5-14.5)
[2024-06-02 05:46] LABS: ALT (SGPT) 12 U/L (8-55); AST (SGOT) 37 U/L (5-34); Albumin 2.3 g/dL (3.4-4.8); Alkaline Phosphatase 203 U/L (40-110); Anion Gap 17 mmol/L (10-20); BUN (Urea Nitrogen) 9 mg/dL (9.8-20.1); Bilirubin, Total 0.6 mg/dL (0.2-1.2); Calc. Creatinine Clearance 87 mL/min (70-130); Calcium 7.9 mg/dL (7.8-10.44); Carbon Dioxide 28 mmol/L (23-31); Chloride 93 mmol/L (98-107); Estimated GFR 101; Glucose 123 mg/dL (80-115); Magnesium 1.8 mg/dL (1.6-2.6); Phosphorus 1.3 mg/dL (2.3-4.7); Potassium 3.6 mmol/L (3.5-5.1); Protein, Total 5.3 g/dL (5.8-8.1); Sodium 134 mmol/L (136-145)
[2024-06-02] MEDS: Lactated Ringer's 1,000 ML IV SCH (11:30)
[2024-06-02] MEDS: Sodium Phosphate 15 MMOL in Sodium Chloride 0.9% 250 ML 250 ML IVPB SCH (11:30)
[2024-06-02] MEDS: Morphine 4 MG/ML VIAL SLOW IVP SCH (14:30)
[2024-06-02] MEDS: Potassium Phosphate 30 MMOL in Sodium Chloride 0.9% 250 ML 250 ML IVPB SCH ×2 (17:59→19:16)
[2024-06-02] MEDS: Amino Acids 4.25 %/Dextrose 5% 1,000 ML IV SCH (19:17)
[2024-06-02 19:46] LABS: Phosphorus 2.8 mg/dL (2.3-4.7); Potassium 3.2 mmol/L (3.5-5.1)
[2024-06-02] MEDS: diphenhydrAMINE 50 MG/ML VIAL IVP PRN (23:14)
[2024-06-03] MEDS: Potassium Chloride 20 MEQ TAB PO SCH ×2 (03:03→09:09)
[2024-06-03 04:17] LABS: ALT (SGPT) 13 U/L (8-55); AST (SGOT) 40 U/L (5-34); Albumin 2.2 g/dL (3.4-4.8); Alkaline Phosphatase 189 U/L (40-110); Anion Gap 12 mmol/L (10-20); BUN (Urea Nitrogen) 7 mg/dL (9.8-20.1); Bilirubin, Total 0.7 mg/dL (0.2-1.2); Calc. Creatinine Clearance 92 mL/min (70-130); Calcium 7.4 mg/dL (7.8-10.44); Carbon Dioxide 27 mmol/L (23-31); Chloride 91 mmol/L (98-107); Estimated GFR 103; Glucose 114 mg/dL (80-115); Magnesium 1.4 mg/dL (1.6-2.6); Phosphorus 2.8 mg/dL (2.3-4.7); Potassium 3.1 mmol/L (3.5-5.1); Protein, Total 5.2 g/dL (5.8-8.1); Sodium 127 mmol/L (136-145)
[2024-06-03 04:28] LABS: #Basophils Less than 0.03 10x3/uL (0.0-0.2); %Basophils 0.2 % (0.0-1.0); %Eosinophils 0.8 % (0.0-10.0); %Lymphocytes 8.4 % (21.0-51.0); %Monocytes 19.1 % (0.0-10.0); %Neutrophils 70.4 % (42.0-75.0); Hematocrit 29.6 % (36.0-47.0); Hemoglobin 9.4 g/dL (12.0-16.0); Mean Corpuscular HGB CONC 31.8 g/dL (32.0-36.0); Mean Corpuscular Hemoglobin 26.2 pg (27.0-31.0); Mean Corpuscular Volume 82.5 fL (78.0-98.0); Platelet Count 275 10x3/uL (130-400); RBC Distribution Width 23.9 % (11.5-14.5); Red Blood Cell (RBC) Count 3.59 mill/uL (4.20-5.40)
[2024-06-03] MEDS ORDERED: Morphine 2 MG/ML VIAL SLOW IVP SCH (09:30)
[2024-06-03] MEDS: Morphine 4 MG/ML VIAL SLOW IVP SCH (09:56)
[2024-06-03] MEDS: Magnesium Sulfate In Water 4 GM in Premix 1 BAG IVPB SCH (12:05)
[2024-06-04 04:28] LABS: #Basophils Less than 0.03 10x3/uL (0.0-0.2); %Basophils 0.3 % (0.0-1.0); %Eosinophils 0.8 % (0.0-10.0); %Lymphocytes 8.3 % (21.0-51.0); %Monocytes 18.2 % (0.0-10.0); %Neutrophils 71.5 % (42.0-75.0); Hemoglobin 9.5 g/dL (12.0-16.0); Mean Corpuscular HGB CONC 31.7 g/dL (32.0-36.0); Mean Corpuscular Hemoglobin 26.1 pg (27.0-31.0); Mean Corpuscular Volume 82.4 fL (78.0-98.0); Mean Platelet Volume 8.8 fL (7.4-10.4); Platelet Count 243 10x3/uL (130-400); Red Blood Cell (RBC) Count 3.64 mill/uL (4.20-5.40)
[2024-06-04 05:02] LABS: ALT (SGPT) 20 U/L (8-55); AST (SGOT) 58 U/L (5-34); Alkaline Phosphatase 204 U/L (40-110); Anion Gap 14 mmol/L (10-20); BUN (Urea Nitrogen) 8 mg/dL (9.8-20.1); Bilirubin, Total 0.8 mg/dL (0.2-1.2); Calc. Creatinine Clearance 92 mL/min (70-130); Calcium 7.5 mg/dL (7.8-10.44); Carbon Dioxide 23 mmol/L (23-31); Chloride 95 mmol/L (98-107); Estimated GFR 103; Globulin 3.2 g/dL (2.4-3.5); Glucose 114 mg/dL (80-115); Magnesium 1.9 mg/dL (1.6-2.6); Phosphorus 1.7 mg/dL (2.3-4.7); Potassium 3.8 mmol/L (3.5-5.1); Protein, Total 5.2 g/dL (5.8-8.1); Sodium 128 mmol/L (136-145)
[2024-06-04] MEDS ORDERED: traMADol HCl 50 MG TAB PO PRN (08:40)
[2024-06-04] MEDS: Morphine IR Tab 15 MG TAB PO PRN ×2 (09:25→22:50)
[2024-06-04] MEDS: Potassium Phosphate 30 MMOL in Sodium Chloride 0.9% 250 ML 250 ML IVPB SCH (12:34)
[2024-06-05 04:40] LABS: #Basophils 0.03 10x3/uL (0.0-0.2); %Basophils 0.4 % (0.0-1.0); %Eosinophils 0.7 % (0.0-10.0); %Lymphocytes 10.1 % (21.0-51.0); %Monocytes 17.6 % (0.0-10.0); %Neutrophils 70.3 % (42.0-75.0); Hematocrit 28.7 % (36.0-47.0); Hemoglobin 8.9 g/dL (12.0-16.0); Mean Corpuscular Hemoglobin 26.1 pg (27.0-31.0); Mean Corpuscular Volume 84.2 fL (78.0-98.0); Mean Platelet Volume 9.3 fL (7.4-10.4); Platelet Count 216 10x3/uL (130-400); Red Blood Cell (RBC) Count 3.41 mill/uL (4.20-5.40)
[2024-06-05 04:45] LABS: ALT (SGPT) 27 U/L (8-55); AST (SGOT) 59 U/L (5-34); Albumin 1.9 g/dL (3.4-4.8); Alkaline Phosphatase 218 U/L (40-110); Anion Gap 10 mmol/L (10-20); BUN (Urea Nitrogen) 8 mg/dL (9.8-20.1); Bilirubin, Total 0.7 mg/dL (0.2-1.2); Calc. Creatinine Clearance 95 mL/min (70-130); Calcium 7.4 mg/dL (7.8-10.44); Carbon Dioxide 22 mmol/L (23-31); Chloride 98 mmol/L (98-107); Estimated GFR 104; Globulin 3.1 g/dL (2.4-3.5); Glucose 99 mg/dL (80-115); Magnesium 1.5 mg/dL (1.6-2.6); Phosphorus 2.4 mg/dL (2.3-4.7); Potassium 4.2 mmol/L (3.5-5.1); Sodium 126 mmol/L (136-145)
[2024-06-05] MEDS: Sodium Bicarbonate Tab 325 MG TAB PO SCH (11:16)
[2024-06-05] MEDS: Mag-Al 1200 mg/1200 mg/30 ML UDCUP PO PRN (11:19)
[2024-06-05] MEDS: Sodium Chloride 0.9% 1,000 ML IV SCH (11:20)
[2024-06-05 15:16] LABS: Anion Gap 10 mmol/L (10-20); BUN (Urea Nitrogen) 8 mg/dL (9.8-20.1); Calc. Creatinine Clearance 95 mL/min (70-130); Calcium 7.5 mg/dL (7.8-10.44); Carbon Dioxide 21 mmol/L (23-31); Chloride 98 mmol/L (98-107); Estimated GFR 104; Glucose 103 mg/dL (80-115); Potassium 3.8 mmol/L (3.5-5.1); Sodium 125 mmol/L (136-145)
[2024-06-05] MEDS: Sodium Chloride 1 GM TAB PO SCH ×2 (15:41→22:07)
[2024-06-05] MEDS: Calcium Carbonate 500 MG ChewTAB PO SCH (22:07)
[2024-06-06 04:21] LABS: Anion Gap 13 mmol/L (10-20); BUN (Urea Nitrogen) 10 mg/dL (9.8-20.1); Calc. Creatinine Clearance 77 mL/min (70-130); Calcium 8.2 mg/dL (7.8-10.44); Carbon Dioxide 26 mmol/L (23-31); Chloride 93 mmol/L (98-107); Estimated GFR 98; Glucose 115 mg/dL (80-115); Potassium 4.1 mmol/L (3.5-5.1); Sodium 128 mmol/L (136-145)
[2024-06-06] MEDS: Promethazine HCl 25 MG in Sodium Chloride 0.9% 50 ML IVPB SCH (04:40)
[2024-06-06] MEDS: Haloperidol Lactate 5 MG/ML VIAL SLOW IVP SCH (16:02)
[2024-06-06] MEDS: Scopolamine 1 mg/72 hour Patch TD SCH (16:20)
[2024-06-07 03:51] LABS: #Basophils 0.03 10x3/uL (0.0-0.2); #Eosinophils Less than 0.03 10x3/uL (0.0-0.7); %Basophils 0.3 % (0.0-1.0); %Eosinophils 0.1 % (0.0-10.0); %Lymphocytes 7.1 % (21.0-51.0); %Monocytes 10.9 % (0.0-10.0); %Neutrophils 80.9 % (42.0-75.0); Hematocrit 29.9 % (36.0-47.0); Hemoglobin 9.5 g/dL (12.0-16.0); Mean Corpuscular HGB CONC 31.8 g/dL (32.0-36.0); Mean Corpuscular Volume 81.9 fL (78.0-98.0); Mean Platelet Volume 9.2 fL (7.4-10.4); Platelet Count 250 10x3/uL (130-400); RBC Distribution Width 24.4 % (11.5-14.5); Red Blood Cell (RBC) Count 3.65 mill/uL (4.20-5.40)
[2024-06-07 03:59] LABS: Anion Gap 17 mmol/L (10-20); BUN (Urea Nitrogen) 17 mg/dL (9.8-20.1); Calc. Creatinine Clearance 64 mL/min (70-130); Calcium 8.1 mg/dL (7.8-10.44); Carbon Dioxide 31 mmol/L (23-31); Chloride 87 mmol/L (98-107); Estimated GFR 82; Glucose 118 mg/dL (80-115); Potassium 3.5 mmol/L (3.5-5.1); Sodium 131 mmol/L (136-145)
[2024-06-07] MEDS: Megestrol Acetate 800 MG/20 ML UDCUP PO SCH (16:26)
[2024-06-08 05:35] LABS: Anion Gap 13 mmol/L (10-20); BUN (Urea Nitrogen) 23 mg/dL (9.8-20.1); Calc. Creatinine Clearance 56 mL/min (70-130); Calcium 8.1 mg/dL (7.8-10.44); Carbon Dioxide 38 mmol/L (23-31); Chloride 83 mmol/L (98-107); Estimated GFR 69; Glucose 106 mg/dL (80-115); Potassium 3.5 mmol/L (3.5-5.1); Sodium 130 mmol/L (136-145)
[2024-06-08 06:14] LABS: #Basophils 0.04 10x3/uL (0.0-0.2); %Basophils 0.3 % (0.0-1.0); %Eosinophils 0.3 % (0.0-10.0); %Lymphocytes 7.6 % (21.0-51.0); %Monocytes 11.2 % (0.0-10.0); Hemoglobin 9.2 g/dL (12.0-16.0); Mean Corpuscular HGB CONC 31.7 g/dL (32.0-36.0); Mean Corpuscular Hemoglobin 26.4 pg (27.0-31.0); Mean Corpuscular Volume 83.1 fL (78.0-98.0); Mean Platelet Volume 8.7 fL (7.4-10.4); Platelet Count 252 10x3/uL (130-400); Red Blood Cell (RBC) Count 3.49 mill/uL (4.20-5.40)
[2024-06-08] MEDS: Megestrol Acetate 800 MG/20 ML UDCUP PO SCH (08:56)
[2024-06-08 12:48] VITALS: BP 127/76; TEMP 98.1
== END 2024-06-08 11:52 | disposition home or self-care (01) | DRG 389 ==
LOC: ERS 11:38 → 2NO 17:51 → MSONC 06-01 11:01
PROVIDERS: ADMIT Internal Medicine; ATTEND Family Medicine
DX: K56.600 Partial intestinal obstruction, unspecified as to cause (principal); C19 Malignant neoplasm of rectosigmoid junction; E87.1 Hypo-osmolality and hyponatremia; E44.0 Moderate protein-calorie malnutrition; E87.20 Acidosis, unspecified; E87.6 Hypokalemia; Z88.8 Allergy status to other drugs, medicaments and biological substances; Z86.718 Personal history of other venous thrombosis and embolism; Z79.899 Other long term (current) drug therapy; E83.39 Other disorders of phosphorus metabolism; Z51.5 Encounter for palliative care; K56.2 Volvulus; Z66 Do not resuscitate
CPT/HCPCS: 36415; 51701; 71045; 71260; 74019; 74177; 80048; 80053; 81001; 82274; 83605; 83690; 83735; 84100; 84443; 84484; 85025; 85610; 85730; 86850; 86900; 86901; 87086; 93005; 96365; 96375; 96376; 97139; J1200; J1630; J1642; J1650; J1885; J1956; J2060; J2272; J2405; J2470; J2550; J3475; J3480; J7030; J7050; J7120; Q9967